=== PATIENT | female | born 1935 | race Caucasian/White ===

== ENCOUNTER 2018-09-17 09:06 | Inpatient (IN) | payer MEDICARE, BC ==
[2018-09-17] MEDS ORDERED: Diltiazem 125 MG/25 ML ONE (09:37)
[2018-09-17 09:53] LABS: #Basophils 0.1 thou/uL (0.0-0.2); #Lymphocytes 1.6 thou/uL (1.20-3.40); #Monocytes 0.4 thou/uL (0.11-0.59); #Neutrophils 4.7 thou/uL (1.40-6.50); %Basophils 0.8 % (0.0-1.0); %Eosinophils 0.6 % (0.0-10.0); %Lymphocytes 23.6 % (21.0-51.0); %Monocytes 6.5 % (0.0-10.0); %Neutrophils 68.6 % (42.0-75.0); Mean Corpuscular HGB CONC 31.4 g/dL (32.0-36.0); Mean Corpuscular Hemoglobin 33.8 pg (27.0-31.0); Mean Platelet Volume 8.3 fL (7.4-10.4); Platelet Count 269 thou/uL (130-400); RBC Distribution Width 13.6 % (11.5-14.5); Red Blood Cell (RBC) Count 4.73 mill/uL (4.20-5.40); White Blood Cell (WBC) Count 6.8 thou/uL (4.8-10.8)
[2018-09-17 10:22] LABS: MDiff Complete? YES; Macrocytosis SLIGHT = 6-15 cells (100X) (0-5/hpf)
[2018-09-17 10:23] LABS: CKMB 1.8 ng/mL (0-6.6); Troponin I Less than 0.010 ng/mL (< 0.028)
--- NOTE | 2018-09-17 11:26 | RAD ---
FRONTAL VIEW CHEST: Date: 09/17/18 INDICATION: Chest pain and edema. FINDINGS: There is enlargement of the cardiac silhouette. Moderate right-sided effusion. There is patchy right basilar density. Vascular calcification and granulomatous calcification present. There are osseous de generative changes. IMPRESSION: Moderate right pleural effusion with adjacent right basilar opacity. There is prominence of the right perihilar region. An underlying mass cannot be excluded. Recommend continued follow-up to resolution . POS: TIFFANI
[2018-09-17 12:02] LABS: Albumin 4.1 g/dL (3.4-4.8)
[2018-09-17 12:03] LABS: Chloride 106 mmol/L (98-107); Potassium 3.5 mmol/L (3.5-5.1); Sodium 141 mmol/L (136-145)
[2018-09-17 12:04] LABS: Calcium 9.3 mg/dL (7.8-10.44); Glucose 114 mg/dL (83-110)
[2018-09-17 12:05] LABS: Globulin 3.6 g/dL (2.4-3.5); Protein, Total 7.7 g/dL (6.0-8.3)
[2018-09-17 12:06] LABS: Anion Gap 19 mmol/L (10-20); Bilirubin, Total 1.3 mg/dL (0.2-1.2); Carbon Dioxide 20 mmol/L (23-31)
[2018-09-17 12:07] LABS: Alkaline Phosphatase 76 U/L (40-150)
[2018-09-17 12:08] LABS: Calc. Creatinine Clearance 0 mL/min (70-130); Estimated GFR-MDRD 83
[2018-09-17 12:09] LABS: AST (SGOT) 21 U/L (5-34); BUN (Urea Nitrogen) 15 mg/dL (9.8-20.1)
[2018-09-17 12:10] LABS: ALT (SGPT) 11 U/L (8-55)
[2018-09-17 12:28] LABS: CK (CPK) 39 U/L (29-168)
--- NOTE | 2018-09-17 13:30 | PDOC.FPRHP ---
- History of Present Illness Chief Complaint: bilateral leg swelling History of Present Illness: Patient comes in for leg swelling going on for about 2 week. States she has felt "puny" for the last 3-4 days or so. Denies palpitations, chest pain. She has had mild shortness of breath as of late, denies cough. She denies recent weight loss or weight gain. She states she has had no recent change in exercise tolerance. Denies history of abnormal heart rhythm, denies any history of heart disease. ED Course: Diltiazem drip - Allergies/Adverse Reactions Allergies Allergy/AdvReac Type Severity Reaction Status Date / Time No Known Allergies Allergy Verified 09/17/18 16:29 - Home Medications Medication Instructions Recorded Confirmed Type Amlodipine [Norvasc] 10 mg PO DAILY 09/17/18 09/17/18 History - History PMHx: HTN , bleeding ulcer (voltaren) PSHx: laminectomy, hysterectomy, bladder sling, cataract x2 FHx: non-contributory Social: 1/2 ppd smoking, no alcohol or drugs - Review of Systems General: reports: fatigue, other (legs feel heavy). denies: fever/chills Eyes: denies: eye pain, vision changes ENT: reports: other (allergies). denies: nasal congestion Respiratory: reports: shortness of breath Cardiovascular: denies: chest pain, palpitation Gastrointestinal: denies: nausea, vomiting, diarrhea, abdominal pain Genitourinary: reports: other (decreased urination). denies: dysuria, polyuria Skin: denies: rashes Musculoskeletal: reports: other (states she has fears of falling but no pain) Neurological: denies: numbness, syncope, weakness - Vital signs BP: 117/91 HR: 120 RR: 18 Tmax: 98.3 Pox: 92% on RA Wt: 52.62 - Physical Exam Constitutional: NAD, awake, alert and oriented, well developed HEENT: normocephalic and atraumatic, conjunctiva clear, grossly normal vision, grossly normal hearing, MMM Neck: supple, trachea midline Chest: no-tender to palpation, no lesions Heart: no murmurs/rubs/gallops, pulses present, other (irregularly irregular rhythm) Lungs: no wheezing, no retractions, other (poor air movement, crackles in bases b/l) Abdomen: soft, non-tender, no masses/distention Musculoskeletal: normal structure, ROM grossly normal Skin: no rash/lesions Psychiatric: normal mood and affect FMR H&P: Results - Labs Result Diagrams: 09/17/18 09:39 09/17/18 09:39 Lab results: WBC 6.8 thou/uL (4.8-10.8) 09/17/18 09:39 Hgb 16.0 g/dL (12.0-16.0) 09/17/18 09:39 Hct 50.9 % (36.0-47.0) H 09/17/18 09:39 MCV 108.0 fL (78.0-98.0) H 09/17/18 09:39 Plt Count 269 thou/uL (130-400) 09/17/18 09:39 Neutrophils % 68.6 % (42.0-75.0) 09/17/18 09:39 Sodium 141 mmol/L (136-145) 09/17/18 09:39 Potassium 3.5 mmol/L (3.5-5.1) 09/17/18 09:39 Chloride 106 mmol/L (98-107) 09/17/18 09:39 Carbon Dioxide 20 mmol/L (23-31) L 09/17/18 09:39 BUN 15 mg/dL (9.8-20.1) 09/17/18 09:39 Creatinine 0.68 mg/dL (0.6-1.1) 09/17/18 09:39 Glucose 114 mg/dL (83-110) H 09/17/18 09:39 Calcium 9.3 mg/dL (7.8-10.44) 09/17/18 09:39 Total Bilirubin 1.3 mg/dL (0.2-1.2) H 09/17/18 09:39 AST 21 U/L (5-34) 09/17/18 09:39 ALT 11 U/L (8-55) 09/17/18 09:39 Alkaline Phosphatase 76 U/L (40-150) 09/17/18 09:39 Creatine Kinase 39 U/L (29-168) 09/17/18 09:39 CK-MB (CK-2) 1.8 ng/mL (0-6.6) 09/17/18 09:39 B-Natriuretic Peptide 586.8 pg/mL (0-100) H 09/17/18 09:39 Serum Total Protein 7.7 g/dL (6.0-8.3) 09/17/18 09:39 Albumin 4.1 g/dL (3.4-4.8) 09/17/18 09:39 - EKG Interpretation EKG: irregularly irregular rhythm, absent P waves, low voltage FMR H&P: A/P - Problem List (1) Atrial fibrillation with rapid ventricular response Current Visit: Yes Status: Acute Code(s): I48.91 - UNSPECIFIED ATRIAL FIBRILLATION (2) Acute on chronic respiratory failure with hypoxia Current Visit: Yes Status: Acute Code(s): J96.21 - ACUTE AND CHRONIC RESPIRATORY FAILURE WITH HYPOXIA (3) Lung abnormality Current Visit: Yes Status: Acute Code(s): J98.4 - OTHER DISORDERS OF LUNG (4) HTN (hypertension) Current Visit: Yes Status: Acute Code(s): I10 - ESSENTIAL (PRIMARY) HYPERTENSION (5) Osteoarthritis Current Visit: Yes Status: Acute Code(s): M19.90 - UNSPECIFIED OSTEOARTHRITIS, UNSPECIFIED SITE - Plan Afib with RVR - Transfer to IMCU titrate diltiazem drip to HR less than or equal to 90 - [id number] 4, Therapuetic dosing of lovenox for anticoagulation - MG, TSH, Echocardiogram to evaluate for cause - possibly 2/2 un-diagnosed COPD - consult cardiology Acute on chronic hypoxic respiratory failure - possibly 2/2 CHF vs COPD exacerbations - O2 supplementation to keep saturations at 88% - monitor closely on IMCU, consult palliative for goals of care - IV lasix BID - wound care consult for LE weeping and edema Lung abnormality on CXR - cannot exclude malignancy, especially considering smoking history - converse with patient about further work up - palliative care consult HTN - continue home medications Osteoarthritis - tylenol for pain Code: DNR ppx: therapeutic lovenox Disposition/LOS: Admit to IMCU for diltiazem drip titration and close monitoring, evaluate for cause FMR H&P: Upper Level - Pertinent history This is an 83 yo F who comes in with chief complaint of leg swelling. She states she has been feeling "puny" for the last 3-4 days. States she hit her leg while getting out of a car 2 weeks ago and since this time her legs have been swollen. She denies cp or palpitations. but states that she has had decreased exercise tolerance with some sob during the last few days. Has had mild cough, non-productive. No fevers, chills, or sweats. She denies every being told she had irregular heart rhythm or heart disease. She has smoked 1 ppd for the last 60 years. Was told she had emphysema at one point but states she has never taken any medications for it. She states she has had a full life, stating she has 10 grandchildren. She was on a statin in the past but quit taking it because she "doesn't want to mess with that." She is DNR/DNI. - Pertinent findings General: NAD, alert and oriented x3, frail appearing HEENT: PERRLA, EOMI, normal sclera, oropharynx without erythema or exudate Neck: Supple. Full ROM. Heart/Cardiovascular System: No r/m/g. irregularly irregular rhythm, Cap refill < 3 seconds, good pulses in all extremities Lungs/Respiratory System: diminished breath sounds at R lung base, decreased air movement, no wheezes Abdomen/Gastro-Intestinal System: non-tender, normal bowel sounds, no masses, no organomegaly Extremeties: Warm extremities. +2 edema bilaterally Neuro: No gross deficits appreciated. CN 2-12 grossly intact Psychiatry: Awake, Alert and cooperative with exam Skin/ Integumentory: abrasion on LLe Musculoskeletal: Full ROM, Strength 5/5 in all 4 extremities - Plan Date/Time: 09/17/18 1330 I, Jorge Luis Mirza MD have evaluated this patient and agree with findings/plan as outlined by photography intern resident. Pertinent changes/additions are listed here. # Atrial fibrillation w/ RVR - HR in 110 in EDs - Diltiazem drip, titrate to HR of 90 - CHADS2-VASC: 4 -> therapuetic lovenox - consult cardiology, apparent new onset-atrial fibrillation - TSH, mag, echo # Acute on chronic Resp Failure 2/2 COPD - sats in the 80s on RA - supplemental oxygen to 88% - spiriva # Possible New-onset CHF - On diltiazem drip - echo pending - Lasix 20mg IV BID # Possible lung mass - consider f/u after diuresis - will discuss whether patient would want to pursue this or no # Abrasion LLE - wound care consult # HTN - hold home meds for now # HLD - refuses statin # Goals of care - patients does not want heroic measures - DNR/DNI - Palliative care consult Code: DNR/DNI Fluids: TKO Diet: NPO at midnight Dispo: 2-3 days Attending Addendum - Attending Addendum Date/Time: 09/17/182038 I personally evaluated the patient and discussed the management with Dr. Hensley. I agree with and repeated the History, Examination, Assessment and Plan documented above with any addition or exceptions noted below. I also verified code status.
[2018-09-17 14:26] LABS: Troponin I Less than 0.010 ng/mL (< 0.028)
[2018-09-17] MEDS ORDERED: Morphine 4 MG/ML VIAL SLOW IVP PRN (15:34)
[2018-09-17] MEDS ORDERED: HYDROcodone/Acetaminophen 7.5/325 mg Tablet PO PRN ×2 (15:34)
[2018-09-17] MEDS ORDERED: Ondansetron HCl/PF 4 MG/2 ML Vial SLOW IVP PRN (15:35)
[2018-09-17] MEDS ORDERED: Diltiazem 125 MG in Sodium Chloride 0.9% 100 ML IVPB SCH (16:00)
[2018-09-17] MEDS ORDERED: Furosemide 20 MG/2 ML VIAL SLOW IVP SCH (16:30)
[2018-09-17] MEDS ORDERED: Clindamycin/D5W 900 MG in Premix Bag 1 BAG IVPB SCH (17:00)
[2018-09-17 17:07] LABS: Troponin I Less than 0.010 ng/mL (< 0.028)
[2018-09-17] MEDS ORDERED: Ibuprofen 800 MG TAB PO SCH (18:00)
[2018-09-17] MEDS: Ipratropium Bromide 2.5 ml Neb NEB SCH ×2 (19:02→23:26)
[2018-09-17] MEDS ORDERED: Potassium Chloride 20 MEQ TAB PO SCH (20:00)
[2018-09-17] MEDS ORDERED: Magnesium 2 GM/50 ML 2 GM in Premix Bag 1 BAG IVPB SCH (20:00)
[2018-09-17] MEDS ORDERED: Enoxaparin Sodium 60 MG/0.6 ML SYRINGE SC SCH (21:00)
[2018-09-17] MEDS ORDERED: Melatonin 3 MG TAB PO SCH (22:15)
--- NOTE | 2018-09-17 23:53 | CON ---
DATE OF CONSULTATION: 09/17/2018 CARDIOLOGY CONSULTATION REASON FOR CONSULTATION: Atrial fibrillation with a rapid rate. Ms. Lackey is an 83-year-old woman with long history of smoking. She came to the hospital and was ad mitted for severe swelling of her lower extremities and shortness of breath, found to be in atrial fi brillation with a rapid rate. PAST MEDICAL HISTORY: She has a history of hypertension and bleeding ulcer due to Voltaren. PAST SURGICAL HISTORY: Laminectomy, hysterectomy, bladder sling, and cataracts. FAMILY HISTORY: Noncontributory. SOCIAL HISTORY: She said she smokes one pack of cigarettes per day. Her family says she smokes 2 pa cks of cigarettes per day, has been smoking since age 14. She has only stopped one time for a few mo nths. REVIEW OF SYSTEMS: CONSTITUTIONAL: Some fatigue, no fever or chills. VISION: No changes. HEARING : No changes. PULMONARY: Positive for shortness of breath. CARDIAC: Positive for shortness of br eath. GASTROINTESTINAL: No nausea, vomiting, diarrhea. SKIN: No rashes. NEUROLOGIC: No unilater al weakness or numbness. PSYCHIATRIC: No unusual depression or anxiety. PHYSICAL EXAMINATION: GENERAL: This is a pleasant, somewhat underweight appearing elderly woman in no distress. She has d eep creases and skin on her face compatible with a long history of smoking. VITAL SIGNS: Blood pressure 170/91, pulse initially was 120s, now it is in the 80s and on Cardizem. EYES: Sclerae nonicteric. MOUTH: Mucous membranes moist. NECK: Supple, no lymphadenopathy. LUNGS: Diffuse rhonchi. CARDIAC: Irregularly irregular. No murmur, rub or gallop. ABDOMEN: Soft, nontender. EXTREMITIES: No clubbing or cyanosis. There is moderate to severe edema. SKIN: Warm and dry. PERTINENT LABORATORY DATA: Potassium 3.5, creatinine is 0.68. ASSESSMENT: 1. Atrial fibrillation with a rapid ventricular response. 2. Severe peripheral edema probably diastolic heart failure from atrial fibrillation. 3. Long history of smoking, almost certainly has chronic obstructive pulmonary disease. PLAN: 1. Agree with intravenous diltiazem for rate control. Change to oral diltiazem tomorrow. 2. Diurese. 3. Likely we will not try to restore sinus rhythm, especially if her left atrium is enlarged. Would avoid amiodarone, it was almost certainly has severe lung disease, most likely rate control anticoag ulation probably with Eliquis 2.5 mg twice a day. Her dry weight is probably well under 60 kilograms .
--- NOTE | 2018-09-17 23:53 | CON ---
DATE OF CONSULTATION: 09/17/2018 SERVICE: Pulmonary Medicine. REASON FOR CONSULTATION: [facility] patient. HISTORY OF PRESENT ILLNESS: Patient is an 83-year-old white female who is new to our system. She was in her usual state of health until about 2 weeks prior to admission. She started having increasing lower extremity swelling. She also had some malaise and fatigue. She had minimal shortness of breath. On presentation to the Emergency Department, she was discovered to be in atrial fibrillation with a rapid rate. She currently denies any fevers or chills. She is not having any cough or sputum production. She is not having any hot, red, swollen joints, rashes, dysuria, diarrhea, nausea or vomiting. She is otherwise in her usual state of health. PAST MEDICAL HISTORY: 1. Hypertension. 2. Atrial fibrillation, new diagnosis. 3. Peptic ulcer disease. PAST SURGICAL HISTORY: 1. Hysterectomy. 2. Bladder sling. 3. Cataracts x2. 4. Laminectomy. FAMILY HISTORY: Noncontributory. SOCIAL HISTORY: She smokes a half pack on a daily basis and has greater than a [id number]-[id number] history of smoking. Denies any alcohol or illicit drug use. She has no exposure to chemicals, dust asbestos or tuberculosis. ALLERGIES: No known drug allergies. MEDICATIONS: List of her inpatient medications were reviewed. No specific updates were made. REVIEW OF SYSTEMS: General, head, ears, eyes, nose, throat, cardiovascular, respiratory, GI, , musculoskeletal, neurologic and skin is negative except as mentioned in the H&P. PHYSICAL EXAMINATION: VITAL SIGNS: Afebrile, pulse 115, blood pressure 122/97, respirations 20, saturation 93% on 2 liters nasal cannula. GENERAL: The patient is awake, alert, no apparent distress. LUNGS: Excellent air entry. Minimal dependent crackles are present. There is no prolonged expiratory phase or wheezing appreciated. HEART: Tachycardic. Regular. ABDOMEN: Soft, nontender, nondistended. Bowel sounds are positive. MUSCULOSKELETAL: No cyanosis or clubbing. There is 1+ to 2+ pitting in the bilateral lower extremities. NEUROLOGIC: Grossly nonfocal. LABORATORY DATA: CBC is completely unremarkable. BNP 586. Comprehensive metabolic profile, cardiac enzymes x2, magnesium and TSH all unremarkable. Her potassium and magnesium are at the lower limits of normal. IMAGING DATA: Chest x-ray demonstrates generous cardiac silhouette. Right pleural effusion is noted. There is prominence to the right perihilar region. ASSESSMENT: 1. Pleural effusion. 2. Atrial fibrillation with rapid ventricular response, new onset. DISCUSSION AND PLAN: The patient is a little volume overloaded. We need to diurese her until she returns to euvolemia. At that point, we can repeat a chest x-ray to see whether or not the effusion has improved. If it has not, thoracentesis will be considered at some point in the future. Potassium and magnesium will be replaced today. This will be preemptive strike as they are likely to dip lower with diuretics. 70 minutes have been devoted to this patient in various activities. I personally reviewed all imaging studies and laboratory data noted within this document. For fifty percent of this time, I was interacting with the patient at the bedside or coordinating care with the care team. For the remainder of the time I was immediately available to the patient in the hospital unit. LALO
[2018-09-18 03:49] LABS: #Basophils 0.1 thou/uL (0.0-0.2); #Eosinphils 0.1 thou/uL (0.0-0.7); #Lymphocytes 1.2 thou/uL (1.20-3.40); #Monocytes 0.6 thou/uL (0.11-0.59); #Neutrophils 4.3 thou/uL (1.40-6.50); %Basophils 1.4 % (0.0-1.0); %Eosinophils 1.2 % (0.0-10.0); %Lymphocytes 19.2 % (21.0-51.0); %Monocytes 8.9 % (0.0-10.0); %Neutrophils 69.3 % (42.0-75.0); Hemoglobin 13.7 g/dL (12.0-16.0); Mean Corpuscular HGB CONC 32.2 g/dL (32.0-36.0); Mean Corpuscular Hemoglobin 34.8 pg (27.0-31.0); Mean Platelet Volume 7.9 fL (7.4-10.4); Platelet Count 205 thou/uL (130-400); RBC Distribution Width 13.2 % (11.5-14.5); Red Blood Cell (RBC) Count 3.93 mill/uL (4.20-5.40); White Blood Cell (WBC) Count 6.3 thou/uL (4.8-10.8)
[2018-09-18 04:10] LABS: ALT (SGPT) 7 U/L (8-55); AST (SGOT) 14 U/L (5-34); Albumin 3.4 g/dL (3.4-4.8); Alkaline Phosphatase 61 U/L (40-150); Anion Gap 10 mmol/L (10-20); BUN (Urea Nitrogen) 15 mg/dL (9.8-20.1); Calc. Creatinine Clearance 67 mL/min (70-130); Calcium 8.6 mg/dL (7.8-10.44); Carbon Dioxide 28 mmol/L (23-31); Chloride 107 mmol/L (98-107); Estimated GFR-MDRD Greater than 90; Globulin 2.8 g/dL (2.4-3.5); Glucose 90 mg/dL (83-110); Potassium 3.4 mmol/L (3.5-5.1); Protein, Total 6.2 g/dL (6.0-8.3); Sodium 142 mmol/L (136-145)
[2018-09-18] MEDS: Furosemide 40 MG/4 ML VIAL SLOW IVP SCH ×2 (05:36→14:44)
[2018-09-18] MEDS ORDERED: Furosemide 20 MG/2 ML VIAL SLOW IVP SCH (06:00)
[2018-09-18] MEDS: Ipratropium Bromide 2.5 ml Neb NEB SCH ×3 (06:31→20:00)
--- NOTE | 2018-09-18 08:20 | PDOC.FM ---
- Subjective Subjective: Patient states she is feeling well this AM. She states she as able to ambulate to the comode without difficulty as long as "no one is bothering her." Discussed possibility of lung mass and she states "well I've been smoking 60 years, what did you expect?" She states she is not at all interested in extensive workup nor quitting smoking. States she has had a full life and 10 grandchildren. Patient denies CP, SOB, N/V/D. States leg swelling is improved. Eating breakfast without difficulty. - Objective Vital Signs & Weight: Vital Signs (12 hours) Temp Pulse Resp BP Pulse Ox 09/18/18 08:08 98.3 F 113 H 32 H 112/69 93 L 09/18/18 06:34 93 L 09/18/18 06:31 86 16 93 L 09/18/18 03:56 97.9 F 98 18 110/72 90 L 09/18/18 00:00 98.2 F 101 H 18 112/75 91 L 09/17/18 23:26 86 16 92 L Weight Weight 59.421 kg I&O: 09/17/18 09/18/18 09/19/18 06:59 06:59 06:59 Intake Total 470 Balance 470 Result Diagrams: 09/18/18 03:14 09/18/18 03:14 <Jorge Luis Mirza - Last Filed: 09/18/18 08:18> - Objective Vital Signs & Weight: Vital Signs (12 hours) Temp Pulse Resp BP Pulse Ox 09/18/18 09:27 113 H 09/18/18 08:23 94 L 09/18/18 08:08 98.3 F 113 H 32 H 112/69 93 L 09/18/18 06:34 93 L 09/18/18 06:31 86 16 93 L 09/18/18 03:56 97.9 F 98 18 110/72 90 L 09/18/18 00:00 98.2 F 101 H 18 112/75 91 L 09/17/18 23:26 86 16 92 L Weight Weight 59.421 kg I&O: 09/17/18 09/18/18 09/19/18 06:59 06:59 06:59 Intake Total 470 Balance 470 Result Diagrams: 09/18/18 03:14 09/18/18 03:14 <Dustin Pedraza - Last Filed: 09/18/18 11:29> Phys Exam - Physical Examination Constitutional: NAD HEENT: PERRLA, moist MMs Respiratory: no wheezing, no rales diminished breath sounds at right base, good air movt Cardiovascular: no significant murmur irregularly irregular rhythm Gastrointestinal: soft, non-tender, no distention, positive bowel sounds +1 pitting edema Neurological: non-focal, moves all 4 limbs Psychiatric: normal affect, A&O x 3 Skin: no rash, cap refill <2 seconds <Jorge Luis Mirza - Last Filed: 09/18/18 08:18> Dx/Plan (1) Atrial fibrillation with rapid ventricular response Code(s): I48.91 - UNSPECIFIED ATRIAL FIBRILLATION Status: Acute (2) Acute on chronic respiratory failure with hypoxia Code(s): J96.21 - ACUTE AND CHRONIC RESPIRATORY FAILURE WITH HYPOXIA Status: Acute (3) Lung abnormality Code(s): J98.4 - OTHER DISORDERS OF LUNG Status: Acute (4) HTN (hypertension) Code(s): I10 - ESSENTIAL (PRIMARY) HYPERTENSION Status: Acute (5) Osteoarthritis Code(s): M19.90 - UNSPECIFIED OSTEOARTHRITIS, UNSPECIFIED SITE Status: Acute - Plan Plan: # Atrial fibrillation w/ RVR - rate controlled overnight at drip of 10mg/hr - switch to oral diltiazem CD 240mg, transfer to [facility] - [facility]: 4 - t. lovenox overnight, convert to eliquis this AM - consult cardiology,appreciate recs - echo pending # Acute on chronic Resp Failure 2/2 COPD - sats in the low 90s on 2L this AM - supplemental oxygen to 88% - spiriva # Possible New-onset CHF - echo pending - Lasix 40mg IV BID # Possible lung mass - f/u 2V CXR at 3pm this afternoon after some time to diurese - patient not interested in extensive workup - palliative care team consulted # Abrasion LLE - wound care consult # HTN - hold home meds for now # HLD - refuses statin # Goals of care - patients does not want heroic measures - DNR/DNI - Palliative care consult Code: DNR/DNI Fluids: TKO Diet: NPO at midnight Dispo: 1-2 days <Jorge Luis Mirza - Last Filed: 09/18/18 08:18> Attending Addendum - Attending Addendum Date/Time: 09/18/18 1123 I personally evaluated the patient and discussed the management with Dr. Mirza I agree with the History, Examination, Assessment and Plan documented above with any addition or exceptions noted below. Atrial fibrillation with RVR heart Rate controlled with IV diltiazen convert to PO diltiazem. Note questionable lung mass and significant PMHX of smoking patient declining further evaluation will attempt to better qualify mass to better advise patient of options respecting her demonstrated wishes for no further care. Appreciate recommendation of Cardiology. <Dustin Pedraza - Last Filed: 09/18/18 11:29>
[2018-09-18] MEDS ORDERED: Docusate Sodium 100 MG/10 ML UDCUP PO SCH (09:00)
[2018-09-18] MEDS ORDERED: Potassium Chloride 20 MEQ TAB PO SCH (09:30)
[2018-09-18] MEDS: Apixaban 2.5 MG TAB PO SCH ×2 (09:56→21:51)
--- NOTE | 2018-09-18 10:31 | RAD ---
CHEST TWO VIEWS: HISTORY: Pleural effusion. Lung mass. Dyspnea. COMPARISON: 09/17/2018 FINDINGS: The cardiac silhouette is magnified and partially obscured by persistent parenchymal and pleural opac ity at the right base. Similar in appearance to the prior study. Mediastinum is midline with aortic calcification and calcified mediastinal lymph nodes. Blunting of the left lateral costophrenic angl e is now evident. No evidence of pneumothorax. Significant compression of a lower thoracic vertebral body on the lateral view. IMPRESSION: 1. Right pleural fluid and lung base parenchymal opacity are similar in appearance to the prior exam ination. Close continued radiographic followup after medical treatment or CT chest is suggested. 2. Small amount of left pleural fluid now evident. 3. Atherosclerosis. 4. Compression deformity, anterior wedging, of a lower thoracic vertebral body, age indeterminate. POS: TIFFANI
--- NOTE | 2018-09-18 15:27 | PRG ---
DATE OF SERVICE: 09/18/2018 SERVICE: Pulmonary Medicine. INTERVAL HISTORY: The patient is doing outstanding from a respiratory standpoint. He denies any cur rent chest pain, shortness of breath, fever or chills. Her breathing is actually much improved james red to yesterday. She is very happy that she got those diuretics. She is actually interested in get ting out of here today. That being said, I reminded that her heart rate is still in a funny rhythm, and she is not under perfect rate control at this time. Otherwise, there has been no interval change to her condition. OBJECTIVE: VITAL SIGNS: Afebrile, pulse 101, blood pressure 112/69, respirations 18, saturation 89% on room air . GENERAL: The patient is awake, alert, no apparent distress. LUNGS: Decent air entry. Minimal dependent crackles are present. HEART: Tachycardic. Irregular. ABDOMEN: Soft, nontender, nondistended. Bowel sounds are positive. MUSCULOSKELETAL: No cyanosis or clubbing. There is no pitting in the bilateral lower extremities. NEUROLOGIC: Grossly nonfocal. LABORATORY DATA: Her CBC is grossly unremarkable. Basic metabolic profile and liver function studie s are normal. TSH falls within normal limits. Magnesium 1.6, potassium 3.4. IMAGING: Chest x-ray demonstrates right pleural effusion. There is now small left-sided pleural eff usion also present. Echocardiogram demonstrates 50%-55% ejection fraction. Underlying atrial fibril lation prevents evaluation for diastolic dysfunction. That being said, the IVC is dilated with poor inspiratory collapse consistent with right-sided volume overload. PA pressures are enlarged. ASSESSMENT: 1. Acute hypoxic respiratory failure, improving. 2. Pleural effusion, bilateral. 3. Atrial fibrillation with rapid ventricular response, new onset. 4. Acute on chronic diastolic heart failure. DISCUSSION AND PLAN: We will continue to diurese the patient until she returns euvolemia. Magnesium and potassium will be replaced today. Pulmonary Critical Care will continue to follow intermittentl y through the hospital stay. Ultimately, she will need a 2-view chest x-ray on Friday or Friday prio r to discharge. If the effusion persists, this study will need to be repeated in a couple weeks in t outpatient setting. If it persists, Pulmonary consultation should be considered.
[2018-09-18 16:38] VITALS: BMI 24.7
[2018-09-18] MEDS ORDERED: hydrALAZINE 10 MG TAB PO SCH (22:15)
[2018-09-18] MEDS ORDERED: hydrOXYzine 10 MG TAB PO SCH (22:30)
[2018-09-18] MEDS: Melatonin 3 MG TAB PO PRN (22:35)
[2018-09-18] MEDS: Acetaminophen 325 MG TAB PO PRN (22:35)
[2018-09-19] MEDS: Ipratropium Bromide 2.5 ml Neb NEB SCH ×4 (00:47→19:30)
[2018-09-19 05:37] LABS: Anion Gap 10 mmol/L (10-20); BUN (Urea Nitrogen) 15 mg/dL (9.8-20.1); Calc. Creatinine Clearance 62 mL/min (70-130); Calcium 8.6 mg/dL (7.8-10.44); Carbon Dioxide 29 mmol/L (23-31); Chloride 104 mmol/L (98-107); Estimated GFR-MDRD 84; Glucose 113 mg/dL (83-110); Magnesium 1.5 mg/dL (1.6-2.6); Potassium 3.6 mmol/L (3.5-5.1); Sodium 139 mmol/L (136-145)
[2018-09-19] MEDS: Furosemide 40 MG/4 ML VIAL SLOW IVP SCH ×2 (06:04→15:04)
--- NOTE | 2018-09-19 06:47 | PDOC.FM ---
- Subjective Subjective: This morning patient states she is having some pain in her joints from OA. She denies CP, SOB, or weakness. She has had a chronic cough, not productive. Denies feeling palpitations. Multiple runs of a fib w/ RVR overnight on tele to 120s. At bedside her radial pulse was 80bpm. - Objective Vital Signs & Weight: Vital Signs (12 hours) Temp Pulse Resp BP Pulse Ox 09/19/18 03:41 97.7 F 108 H 21 H 112/70 93 L 09/19/18 00:47 90 L 09/18/18 20:03 90 L 09/18/18 20:00 97.5 F L 104 H 20 117/78 90 L Weight Admit Weight 58.876 kg Weight 58.967 kg I&O: 09/17/18 09/18/18 09/19/18 06:59 06:59 06:59 Intake Total 470 740 Balance 470 740 Result Diagrams: 09/18/18 03:14 09/19/18 04:39 <Jorge Luis Mirza - Last Filed: 09/19/18 06:44> - Objective Vital Signs & Weight: Vital Signs (12 hours) Temp Pulse Resp BP BP Pulse Ox 09/19/18 08:53 142 H 132/82 09/19/18 08:00 98.3 F 142 H 20 123/80 93 L 09/19/18 07:28 88 L 09/19/18 07:24 128 H 20 88 L 09/19/18 03:41 97.7 F 108 H 21 H 112/70 93 L 09/19/18 00:47 90 L Weight Admit Weight 58.876 kg Weight 58.967 kg I&O: 09/18/18 09/19/18 09/20/18 06:59 06:59 06:59 Intake Total 470 740 360 Balance 470 740 360 Result Diagrams: 09/18/18 03:14 09/19/18 04:39 <Dustin Pedraza - Last Filed: 09/19/18 12:39> Phys Exam - Physical Examination Constitutional: NAD HEENT: PERRLA, moist MMs Respiratory: no wheezing, no rales mild diminshed breath sounds at R base Cardiovascular: RRR, no significant murmur Gastrointestinal: soft, non-tender, no distention, positive bowel sounds Musculoskeletal: no edema, pulses present Neurological: non-focal, moves all 4 limbs Psychiatric: normal affect, A&O x 3 Skin: no rash, cap refill <2 seconds <Jorge Luis Mirza - Last Filed: 09/19/18 06:44> Dx/Plan (1) Atrial fibrillation with rapid ventricular response Code(s): I48.91 - UNSPECIFIED ATRIAL FIBRILLATION Status: Acute (2) Acute on chronic respiratory failure with hypoxia Code(s): J96.21 - ACUTE AND CHRONIC RESPIRATORY FAILURE WITH HYPOXIA Status: Acute (3) Lung abnormality Code(s): J98.4 - OTHER DISORDERS OF LUNG Status: Acute (4) HTN (hypertension) Code(s): I10 - ESSENTIAL (PRIMARY) HYPERTENSION Status: Acute (5) Osteoarthritis Code(s): M19.90 - UNSPECIFIED OSTEOARTHRITIS, UNSPECIFIED SITE Status: Acute - Plan Plan: # Atrial fibrillation w/ RVR - increased diltiazem to 300mg daily, multiple runs of a fib w/ rvr on tele - radial pulse 80 - CHADS2-VASC: 4 - eliquis - consult cardiology,appreciate recs - echo read pending # Acute on chronic Resp Failure 2/2 COPD - sats in the low 90s on 2L this AM - supplemental oxygen to 88% - spiriva - suspect will need home o2 # Possible New-onset CHF - echo pending - Lasix 40mg IV BID # Possible lung mass - CXR shows persistent fluid yesterday, repeat tomorrow - patient not interested in extensive workup - palliative care team consulted # Abrasion LLE - wound care consult # HTN - hold home meds for now # HLD - refuses statin # Goals of care - patients does not want heroic measures - DNR/DNI - Palliative care consult Code: DNR/DNI Fluids: TKO Diet: regular Dispo: 1-2 days <Jorge Luis Mirza - Last Filed: 09/19/18 06:44> Attending Addendum - Attending Addendum Date/Time: 09/19/18 [id number] I personally evaluated the patient and discussed the management with Dr. Ruthann Mirza I agree with the History, Examination, Assessment and Plan documented above with any addition or exceptions noted below. Patient improved patient and family acknowledge lung mass and desire to not have any further evaluation with knowledge possible carcinoma.Appreciate rec from Cardiology. <Dustin Pedraza - Last Filed: 09/19/18 12:39>
[2018-09-19] MEDS ORDERED: Diltiazem HCl CD 300 mg Capsule PO SCH ×2 (07:00→09:00)
[2018-09-19] MEDS: Diltiazem HCl 125 MG, Admixture Fee 1 EACH in Sodium Chloride 0.9% 100 ML IVPB SCH ×2 (07:11→21:14)
[2018-09-19] MEDS: Potassium Chloride 20 MEQ TAB PO SCH (08:53)
[2018-09-19] MEDS: Acetaminophen 325 MG TAB PO PRN ×2 (08:56→20:40)
[2018-09-19] MEDS: Apixaban 2.5 MG TAB PO SCH ×2 (10:03→20:30)
[2018-09-19] MEDS ORDERED: Digoxin 0.5 MG/2 ML AMP SLOW IVP SCH (14:00)
--- NOTE | 2018-09-19 14:42 | PDOC.CTH ---
<Carmen Pederson - Last Filed: 09/19/18 14:29> Cardiology Progress Note - Subjective The pt seen and examined. No overnight events. No cardiac complaints. She stated she would like to d/c home [place]. However, she voiced understanding after long conversation about Dx Afib, CHF, and the risk. - Objective Vital Signs Temp Pulse Resp BP BP Pulse Ox 09/19/18 13:52 86 20 09/19/18 08:53 142 H 132/82 09/19/18 08:00 98.3 F 142 H 20 123/80 93 L 09/19/18 07:28 88 L 09/19/18 07:24 128 H 20 88 L 09/19/18 03:41 97.7 F 108 H 21 H 112/70 93 L Admit Weight 129 lb 12.8 oz Weight 130 lb 09/18/18 09/19/18 09/20/18 06:59 06:59 06:59 Intake Total 470 740 360 Balance 470 740 360 - Physical Examination General/Neuro: alert & oriented x3 Neck: no JVD present Lungs: other: (coarses and dminished at bases) Heart: other: (irregular) Abdomen: soft Extremities: other: (2-3+ pitting BLE edema) - Telemetry Telemetry Rhythm: Afib 110-120s - Labs Result Diagrams: 09/18/18 03:14 09/19/18 04:39 Troponin/CKMB CK-MB (CK-2) 1.8 ng/mL (0-6.6) 09/17/18 09:39 Troponin I Less than 0.010 ng/mL (< 0.028) 09/17/18 16:37 - Assessment/Plan 1. Afib with RVR - 2. Acute on Chronic Diastolic HF possible 2/2 afib - SOB and BLE edema have been improving per family; cont. to monitor 3. HTN - stable 4. Possible lung mass - another CXR tomorrow 5. Current smoker - at this moment, she refused to stop smoking. 6. Code: DNR/DNI * Echo on 09/18/18 showed EF 50-55%, afib, mod-severe dilated LA, mod ERA, dilated IVC, mod AI, mod-severe TR, mild-mod MR, PA systolic pressure 50-55 mmHG. Review of Systems - Review of Systems Constitutional: reports: no symptoms reported EENTM: reports: no symptoms reported Respiratory: reports: no symptoms reported Cardiac (ROS): reports: no symptoms reported ABD/GI: reports: no symptoms reported : reports: no symptoms reported Musculoskeletal: reports: no symptoms reported <Johana Navarro Shalom - Last Filed: 09/19/18 23:45> Cardiology Progress Note - Objective Vital Signs Temp Pulse Resp BP Pulse Ox 09/19/18 20:25 88 09/19/18 20:20 92 L 09/19/18 20:11 97.6 F 99 20 124/67 09/19/18 19:31 91 L 09/19/18 19:30 91 L 09/19/18 16:00 97.8 F 127 H 18 114/82 96 09/19/18 15:08 124 H 09/19/18 13:52 86 20 09/19/18 12:00 98.2 F 133 H 18 107/72 94 L Admit Weight 129 lb 12.8 oz Weight 130 lb 09/18/18 09/19/18 09/20/18 06:59 06:59 06:59 Intake Total 470 740 855 Output Total 850 Balance 470 740 5 - Labs Result Diagrams: 09/18/18 03:14 09/19/18 04:39 Troponin/CKMB CK-MB (CK-2) 1.8 ng/mL (0-6.6) 09/17/18 09:39 Troponin I Less than 0.010 ng/mL (< 0.028) 09/17/18 16:37 - Assessment/Plan Pt. seen and evaluated by me. I agree with the A/P by the MINING ANALYST. We have discussed the pt. and the plan.Irreg/irreg.
[2018-09-19] MEDS: Digoxin 0.5 MG/2 ML AMP SLOW IVP SCH (20:25)
[2018-09-19] MEDS: Melatonin 3 MG TAB PO PRN (20:41)
[2018-09-20] MEDS: Ipratropium Bromide 2.5 ml Neb NEB SCH ×5 (00:06→23:52)
[2018-09-20] MEDS: Digoxin 0.5 MG/2 ML AMP SLOW IVP SCH (02:09)
[2018-09-20] MEDS: Furosemide 40 MG/4 ML VIAL SLOW IVP SCH ×2 (05:43→14:18)
--- NOTE | 2018-09-20 06:30 | PDOC.FM ---
- Subjective Subjective: THis morning patient states she slept well overnight. States she ambulated in the room yesterday without difficulty or weakness. She denies CP, SOB, or palpitations. Overnight she had a few episodes of A fib w/ rvr into the 110s, diltiazem was increased to a rate of 7.5 mg/hr and shortly after this she did not have any rates over 100. Digoxin was also added to her regimen yesterday. - Objective Vital Signs & Weight: Vital Signs (12 hours) Temp Pulse Resp BP Pulse Ox 09/20/18 03:30 97.6 F 84 16 112/76 92 L 09/20/18 02:09 91 09/20/18 00:06 91 L 09/19/18 23:51 97.6 F 65 20 114/66 92 L 09/19/18 20:25 88 09/19/18 20:20 92 L 09/19/18 20:11 97.6 F 99 20 124/67 09/19/18 19:31 91 L 09/19/18 19:30 91 L Weight Admit Weight 58.876 kg Weight 56.812 kg I&O: 09/18/18 09/19/18 09/20/18 06:59 06:59 06:59 Intake Total 470 740 855 Output Total 1150 Balance 470 740 -295 Result Diagrams: 09/18/18 03:14 09/19/18 04:39 <Jorge Luis Mirza - Last Filed: 09/20/18 06:34> - Objective Vital Signs & Weight: Vital Signs (12 hours) Temp Pulse Resp BP Pulse Ox 09/20/18 10:18 97 09/20/18 08:10 98.2 F 97 22 H 134/74 93 L 09/20/18 06:41 90 L 09/20/18 06:37 81 20 88 L 09/20/18 03:30 97.6 F 84 16 112/76 92 L 09/20/18 02:09 91 Weight Admit Weight 58.876 kg Weight 56.812 kg I&O: 09/19/18 09/20/18 09/21/18 06:59 06:59 06:59 Intake Total 740 855 Output Total 1150 Balance 740 -295 Result Diagrams: 09/18/18 03:14 09/19/18 04:39 <Dustin Pedraza - Last Filed: 09/20/18 12:54> Phys Exam - Physical Examination Constitutional: NAD HEENT: PERRLA, moist MMs Respiratory: no wheezing, no rales, clear to auscultation bilateral Cardiovascular: no significant murmur irregularly irregular rhythm Gastrointestinal: soft, non-tender, no distention, positive bowel sounds +2 edema of the legs Neurological: non-focal, moves all 4 limbs Psychiatric: normal affect, A&O x 3 Skin: no rash, cap refill <2 seconds <Jorge Luis Mirza - Last Filed: 09/20/18 06:34> Dx/Plan (1) Atrial fibrillation with rapid ventricular response Code(s): I48.91 - UNSPECIFIED ATRIAL FIBRILLATION Status: Acute (2) Acute on chronic respiratory failure with hypoxia Code(s): J96.21 - ACUTE AND CHRONIC RESPIRATORY FAILURE WITH HYPOXIA Status: Acute (3) Lung abnormality Code(s): J98.4 - OTHER DISORDERS OF LUNG Status: Acute (4) HTN (hypertension) Code(s): I10 - ESSENTIAL (PRIMARY) HYPERTENSION Status: Acute (5) Osteoarthritis Code(s): M19.90 - UNSPECIFIED OSTEOARTHRITIS, UNSPECIFIED SITE Status: Acute - Plan Plan: # Atrial fibrillation w/ RVR - Diltiazem increased to 7.5mg/hr, likely transition to oral today - Digoxin added yesterday - CHADS2-VASC: 4 - eliquis - consult cardiology,appreciate recs - Echo shows EF 50-55% # Acute on chronic Resp Failure 2/2 COPD - sats in the low 90s on 2L this AM - supplemental oxygen to 88% - spiriva - suspect will need home o2 # acute on chronic CHF likely 2/2 a fib - Lasix 40mg IV BID - EF 50-55% # Possible lung mass - patient and family not interested in extensive workup - palliative care team consulted # Abrasion LLE - wound care consult # HTN - hold home meds for now # HLD - refuses statin # Goals of care - patients does not want heroic measures - DNR/DNI - Palliative care consult Code: DNR/DNI Fluids: TKO Diet: regular Dispo: 1-2 days, pending rate control on oral medications <Jorge Luis Mirza - Last Filed: 09/20/18 06:34> Attending Addendum - Attending Addendum Date/Time: 09/20/18 7022 I personally evaluated the patient and discussed the management with Dr. Meenu Mirza I agree with the History, Examination, Assessment and Plan documented above with any addition or exceptions noted below. Recurrent Atrial fibrillation with RVR. On Digoxin, IV diltiazem appreciate Cardiology rec. Otherwise supportive care offer Home health consideration provider etc patient declines at present. <Dustin Pedraza - Last Filed: 09/20/18 12:54>
[2018-09-20] MEDS: Apixaban 2.5 MG TAB PO SCH ×2 (10:18→21:09)
[2018-09-20] MEDS: Digoxin 0.125 MG TAB PO SCH (10:18)
[2018-09-20] MEDS: Potassium Chloride 20 MEQ TAB PO SCH (10:19)
--- NOTE | 2018-09-20 14:21 | PDOC.CTH ---
<Carmen Pederson - Last Filed: 09/20/18 14:22> Cardiology Progress Note - Subjective The pt seen and examined. No overnight events. No cardiac complaints. She is still on 3LNC. She has good appetite. - Objective Vital Signs Temp Pulse Resp BP Pulse Ox 09/20/18 10:18 97 09/20/18 08:10 98.2 F 97 22 H 134/74 93 L 09/20/18 06:41 90 L 09/20/18 06:37 81 20 88 L 09/20/18 03:30 97.6 F 84 16 112/76 92 L Admit Weight 129 lb 12.8 oz Weight 125 lb 4 oz 09/19/18 09/20/18 09/21/18 06:59 06:59 06:59 Intake Total 740 855 Output Total 1150 Balance 740 -295 - Physical Examination General/Neuro: alert & oriented x3 Neck: no JVD present Lungs: other: (very diminished at bases) Heart: other: (irregular) Abdomen: soft Extremities: other: (2-3+ pitting BLE edema) - Telemetry Telemetry Rhythm: Afib 80s - Labs Result Diagrams: 09/18/18 03:14 09/19/18 04:39 Troponin/CKMB CK-MB (CK-2) 1.8 ng/mL (0-6.6) 09/17/18 09:39 Troponin I Less than 0.010 ng/mL (< 0.028) 09/17/18 16:37 - Assessment/Plan 1. Afib with RVR - HR well controlled with Diltiazem 7.5mg/hr and Digoxin 0.125mg PO qd. Not on BBlocker due to hx of COPD. On Eliquis for CHADS2-VASC score: 4 (Age, gender, HTN). Increase Eliquis from 2.5mg BID to 5mg BID since her Cr level is WNL. 2. Acute on Chronic Diastolic HF possible 2/2 afib - SOB and BLE edema have been improving per family; cont. to monitor 3. HTN - stable 4. Possible lung mass - At this moment, patient and family are not interested in extensive workup 5. Current smoker - at this moment, she refused to stop smoking. 6. Code: DNR/DNI * Echo on 09/18/18 showed EF 50-55%, afib, mod-severe dilated LA, mod ERA, dilated IVC, mod AI, mod-severe TR, mild-mod MR, PA systolic pressure 50-55 mmHG. Review of Systems - Review of Systems Constitutional: reports: no symptoms reported EENTM: reports: no symptoms reported Respiratory: reports: no symptoms reported Cardiac (ROS): reports: no symptoms reported ABD/GI: reports: no symptoms reported : reports: no symptoms reported Musculoskeletal: reports: no symptoms reported Skin: reports: no symptoms reported <Johana Navarro - Last Filed: 09/20/18 22:18> Cardiology Progress Note - Objective Vital Signs Temp Pulse Pulse Pulse Resp BP BP 09/20/18 19:44 09/20/18 19:37 98.6 F 87 17 09/20/18 19:29 09/20/18 19:28 09/20/18 16:20 98.0 F 89 20 09/20/18 14:57 88 20 09/20/18 13:28 104 H 101 H 111/75 140/81 09/20/18 12:35 97.5 F L 89 18 09/20/18 10:18 97 BP Pulse Ox 09/20/18 19:44 94 L 09/20/18 19:37 120/72 94 L 09/20/18 19:29 91 L 09/20/18 19:28 91 L 09/20/18 16:20 129/70 97 09/20/18 14:57 90 L 09/20/18 13:28 09/20/18 12:35 130/82 97 09/20/18 10:18 Admit Weight 129 lb 12.8 oz Weight 125 lb 4 oz 09/19/18 09/20/18 09/21/18 06:59 06:59 06:59 Intake Total 740 855 Output Total 1150 Balance 740 -295 - Labs Result Diagrams: 09/18/18 03:14 09/19/18 04:39 Troponin/CKMB CK-MB (CK-2) 1.8 ng/mL (0-6.6) 09/17/18 09:39 Troponin I Less than 0.010 ng/mL (< 0.028) 09/17/18 16:37 - Assessment/Plan Pt. seen and evaluated by me. I agree with the A/P by the SHEET ROCK NAILER. We have discussed the pt. and the plan.Chest clear. Irreg/irreg.
[2018-09-20] MEDS: Acetaminophen 325 MG TAB PO PRN (21:09)
[2018-09-20] MEDS: Melatonin 3 MG TAB PO PRN (21:09)
[2018-09-21] MEDS: Furosemide 40 MG/4 ML VIAL SLOW IVP SCH (06:16)
--- NOTE | 2018-09-21 08:28 | PDOC.FM ---
- Subjective Subjective: Patient reports continued SOB, requiring O2 by NC supplementation. She denies any chest pain, palpitations. She reports that the swelling in her LE has improved. She reports that she is tolerating PO well and denies N/V. - Objective MAR Reviewed: Yes Vital Signs & Weight: Vital Signs (12 hours) Temp Pulse Resp BP Pulse Ox 09/21/18 03:45 97.6 F 92 22 H 127/69 91 L 09/20/18 23:52 92 L 09/20/18 23:30 98.7 F 86 20 113/71 91 L Weight Admit Weight 58.876 kg Weight 54.998 kg I&O: 09/20/18 09/21/18 09/22/18 06:59 06:59 06:59 Intake Total 855 300 Output Total 1150 500 Balance -295 -200 Result Diagrams: 09/18/18 03:14 09/19/18 04:39 Phys Exam - Physical Examination Constitutional: NAD HEENT: moist MMs, sclera anicteric decreased breath sounds at bilateral bases, diffuse rales irregularly irregular, tachycardic, no murmur Gastrointestinal: soft, non-tender, no distention, positive bowel sounds Musculoskeletal: pulses present 1+ pitting edema in BLE, R>L Neurological: non-focal, moves all 4 limbs Psychiatric: normal affect, A&O x 3 Deviation from normal: dressing in place over LLE wound Dx/Plan (1) Atrial fibrillation with rapid ventricular response Code(s): I48.91 - UNSPECIFIED ATRIAL FIBRILLATION Status: Acute (2) Acute on chronic respiratory failure with hypoxia Code(s): J96.21 - ACUTE AND CHRONIC RESPIRATORY FAILURE WITH HYPOXIA Status: Acute (3) Lung abnormality Code(s): J98.4 - OTHER DISORDERS OF LUNG Status: Acute (4) HTN (hypertension) Code(s): I10 - ESSENTIAL (PRIMARY) HYPERTENSION Status: Acute (5) Osteoarthritis Code(s): M19.90 - UNSPECIFIED OSTEOARTHRITIS, UNSPECIFIED SITE Status: Acute Qualifiers: Osteoarthritis location: multiple joints Osteoarthritis type: unspecified Qualified Code(s): M15.9 - Polyosteoarthritis, unspecified (6) Tobacco abuse Code(s): Z72.0 - TOBACCO USE Status: Acute - Plan Plan: Atrial fibrillation w/ RVR Tele: a-fib with rate in 80s-100s - Diltiazem at 7.5mg/hr, may transition to oral today pending cards recs - Digoxin - CHADS2-VASC: 4. Continue Eliquis - Cards on board, appreciate recs - Echo shows EF 50-55% Acute on Chronic Resp Failure 2/2 a-fib with RVR and COPD Sats in the low 90s on 3L this AM. Pt fluid overloaded on admission, which likely contributed - supplemental oxygen to 88% - Atrovent - Lasix 40mg IV BID - suspect will need home O2 Acute on Chronic CHF likely 2/2 a fib - Lasix 40mg IV BID - EF 50-55% - Daily weights, strict I/O's Possible lung mass - patient and family not interested in extensive workup - palliative care team consulted JEFF Abrasion - wound care consult HTN - hold home meds for now HLD - refuses statin Tobacco Abuse Pt with extensive smoking history. Denies any desire to quit, but reports she hasn't smoked since so she may quit when she leaves here. - Counseled on cessation Goals of care - patients does not want heroic measures - DNR/DNI - Palliative care consult Code: DNR/DNI Fluids: TKO Diet: regular Dispo: 1-2 days, pending rate control on oral medications
[2018-09-21] MEDS: Potassium Chloride 20 MEQ TAB PO SCH (09:32)
[2018-09-21] MEDS: Digoxin 0.125 MG TAB PO SCH (09:32)
[2018-09-21] MEDS: Apixaban 2.5 MG TAB PO SCH (09:36)
--- NOTE | 2018-09-21 09:49 | RAD ---
CHEST PA AND LATERAL: History: 83-year-old female with history of follow up effusion, status post diuretics. Comparison: 09-18-18 FINDINGS: Monitor leads overlie the chest. Mild bilateral vascular congestion. Moderate right sided pleural eff usion and small left sided pleural effusion. Extensive atherosclerosis of the aorta with ectasia. Old granulomatous disease. Significant bony demineralization. IMPRESSION: Bilateral pleural effusions, larger on the right side. Overall stable vascular congestion and cardiom egaly. Extensive atherosclerosis of the aorta with ectasia. No significant new process. Continued fol low up for clearing. POS: [facility]
[2018-09-21 10:14] LABS: BUN (Urea Nitrogen) 12 mg/dL (9.8-20.1); Calc. Creatinine Clearance 55 mL/min (70-130); Calcium 9.2 mg/dL (7.8-10.44); Estimated GFR-MDRD 80; Glucose 106 mg/dL (83-110); Magnesium 1.1 mg/dL (1.6-2.6); Phosphorus 3.9 mg/dL (2.3-4.7)
[2018-09-21 10:41] LABS: Carbon Dioxide 38 mmol/L (23-31)
[2018-09-21 10:43] LABS: Potassium 4.3 mmol/L (3.5-5.1); Sodium 139 mmol/L (136-145)
[2018-09-21 10:44] LABS: Chloride 88 mmol/L (98-107)
[2018-09-21] MEDS: Ipratropium Bromide 2.5 ml Neb NEB SCH ×3 (10:44→19:55)
[2018-09-21 10:45] LABS: Anion Gap 17 mmol/L (10-20)
[2018-09-21] MEDS ORDERED: Furosemide 40 MG/4 ML VIAL SLOW IVP SCH (10:47)
[2018-09-21] MEDS ORDERED: Digoxin 0.5 MG/2 ML AMP SLOW IVP SCH (11:00)
--- NOTE | 2018-09-21 11:21 | PRG ---
DATE OF SERVICE: 09/21/2018 SUBJECTIVE: Ms. Lackey is feeling okay at rest, but she has not been getting up out of bed much. Sh e has no chest pain or pressure. PHYSICAL EXAMINATION: VITAL SIGNS: Blood pressure 129/88, pulse is about 120-130, it is irregular. LUNGS: Rhonchi. CARDIAC: Irregular, irregular. ABDOMEN: Soft, nontender. EXTREMITIES: No edema. ASSESSMENT: 1. Atrial fibrillation, chronic. Rate is uncontrolled despite intravenous diltiazem. She is back o n intravenous diltiazem now. 2. Severe chronic obstructive pulmonary disease. PLAN: 1. Add a dose of intravenous digoxin. 2. She has also got a metabolic alkalosis. We will hold the furosemide today and give her a dose of Diamox. 3. Do a digoxin level tomorrow. 4. If the heart rate is lower, try to change her from intravenous diltiazem to oral diltiazem. If s he cannot be controlled, consideration would need to be given for pacemaker insertion, hopefully bive ntricular in view of the diastolic heart failure and then AV junction ablation. 5. Reassess the situation after the above strategy.
[2018-09-21] MEDS: Diltiazem HCl 125 MG, Admixture Fee 1 EACH in Sodium Chloride 0.9% 100 ML IVPB SCH (11:28)
[2018-09-21] MEDS: Acetaminophen 325 MG TAB PO PRN (11:31)
[2018-09-21] MEDS ORDERED: Magnesium 2 GM/50 ML 2 GM in Premix Bag 1 BAG IVPB SCH (12:45)
--- NOTE | 2018-09-21 13:45 | DIS-2 ---
TRANSFER OF CARE NOTE DATE OF ADMISSION: 09/17/2018 DATE OF DISCHARGE: To be determined. ADMITTING PHYSICIAN: Rafi Gary MD DISCHARGE PHYSICIAN: To be determined. RESIDENT: Jorge Luis Mirza MD PROCEDURES: Echocardiogram shows EF 50%-55%. Chest x-ray shows right pleural effusion, likely right lung mass. PRIMARY DIAGNOSIS: Atrial fibrillation with rapid ventricular response. SECONDARY DIAGNOSES: 1. Acute on chronic respiratory failure, secondary to chronic obstructive pulmonary disease. 2. Congestive heart failure, secondary to atrial fibrillation. 3. Lung mass. 4. Hypertension. 5. Hyperlipidemia. DISCHARGE MEDICATIONS: To be determined. DISCONTINUED MEDICATIONS: To be determined. HISTORY OF PRESENT HOSPITAL COURSE: This is an 83-year-old female, who presented to the ER with 2 weeks of feeling "puny." She states that she had leg swelling during that time. She denied palpitations or chest pain. She had mild shortness of breath the last few days and denied a cough. She denied recent weight loss or weight gain. She has had no recent change in exercise tolerance. She has never been told she had an abnormal rhythm before coming in. She had a [id number] smoking history and was told she had emphysema at some point, but had never taken any medications or had treatment for it. The patient was found to be in atrial fibrillation with RVR. She was started on diltiazem drip and admitted to the ICU so the diltiazem drip could be titrated. She was rate controlled on a rate of 10 mg an hour. She was transitioned to the telemetry unit on account of 40 mg long-acting diltiazem overload. Ultimately, she converted back to atrial fibrillation with rapid ventricular response and to be started again on the IV diltiazem drip. She was started on digoxin by Cardiology. Anticipate a transition to oral medications sometime today or tomorrow. She was anticoagulated with Eliquis. The patient was shown to have likely right-sided lung mass on chest x-ray. When this was discussed with the patient, she stated "I have smoked for 60 years what the hell that you think that you are going to see." The patient is not at all interested in any further workup for this lung mass. This was discussed with her and family and she states she does not want further workup for this. She states she has lived a full life, has 10 grandkids and 10 great grandkids and is very happy. Repeat chest x-ray is ordered for a.m. on 2017 to further evaluate mass after getting diuresis. Could consider a CT chest , but at this point it seems like the patient is really not interested in that information anyways. DISPOSITION: The patient will need to be rate controlled on oral medications before being sent home. Continue to monitor diuresis. Follow up on chest x- ray on the morning of 09/21/2018, it appears that the patient is not interested in further workup for lung mass. LALO
[2018-09-21] MEDS ORDERED: acetaZOLAMIDE Sodium 500 MG in Sodium Chloride 0.9% 50 ML IVPB SCH (14:00)
[2018-09-21] MEDS ORDERED: traMADol HCl 50 MG TAB PO SCH ×2 (14:30→21:00)
--- NOTE | 2018-09-21 16:38 | PRG ---
DATE OF SERVICE: 09/21/2018 SERVICE: Pulmonary Medicine. INTERVAL HISTORY: The patient is doing great from a respiratory standpoint. She did not have any shortness of breath or chest discomfort. Her lower extremity swelling is improved. Otherwise, there has been no interval change to her condition. PHYSICAL EXAMINATION: VITAL SIGNS: Afebrile. Pulse 84, blood pressure 127/76, respirations 14, saturation 93% on 2 L nasal cannula. GENERAL: Patient is awake and alert, in no apparent distress. LUNGS: There is decreased air entry on the right compared to the left. Crackles are present in bibasilar regions. No prolonged expiratory phase or wheezing is appreciated. HEART: Normal rate and regular. ABDOMEN: Soft, nontender, nondistended. Bowel sounds are positive. MUSCULOSKELETAL: No cyanosis or clubbing. There is no pitting in the bilateral lower extremities. NEUROLOGIC: Grossly nonfocal. LABORATORY DATA: Magnesium 1.1, phosphorus 3.9. Basic metabolic profile is otherwise unremarkable except for bicarbonate that has jumped up to 38. Imaging of the chest x-ray demonstrates persistence in the right-sided pleural effusion. The left pleural effusion is much smaller. Vascular congestion is mild. ASSESSMENT: 1. Acute hypoxic respiratory failure. 2. Pleural effusion, right greater than left. 3. Atrial fibrillation with rapid ventricular response, new onset. 4. Acute on chronic diastolic heart failure. DISCUSSION AND PLAN: We will replace her magnesium. Intravascularly, she is likely a touch dehydrated. She has probably developed a little bit of a contraction alkalosis. As such, we should back off on our conventional diuretics for a day until this clears. She has already gotten a dose of acetazolamide, but I am going to put her Lasix on hold for now. If the bicarbonate drops significantly and the patient does not have signs of a prerenal azotemia into tomorrow, we can get it started back. I will do a thoracentesis on her in the morning. I talked to the patient and her daughter about the risks and benefits of performing a thoracentesis, would like to do one for diagnostic purposes. I gave them the option of following up with me in clinic in 2-3 weeks with a repeat chest x-ray. We could do a thoracentesis in the outpatient setting. The daughter then intervened and said no. If we are going to do it, we might as well do it while she is inhouse because I will never get her back in my clinic again. I talked to the patient about this and she affirmed that if she felt well, she is not going to come back and visit with me. I talked to them about the possibility that this effusion could be real estate representative of cancer, infection, or just be associated with her volume state. They would like to move forward with a thoracentesis in the morning and so we will go ahead and arrange for that. She does not have to be n.p.o. for this procedure. Pulmonary will continue to follow while the patient remains in house. LALO
[2018-09-22] MEDS: Ipratropium Bromide 2.5 ml Neb NEB SCH ×4 (02:44→19:05)
[2018-09-22 05:52] LABS: Anion Gap 11 mmol/L (10-20); BUN (Urea Nitrogen) 12 mg/dL (9.8-20.1); Calc. Creatinine Clearance 57 mL/min (70-130); Carbon Dioxide 30 mmol/L (23-31); Chloride 95 mmol/L (98-107); Estimated GFR-MDRD 84; Glucose 87 mg/dL (83-110); Magnesium 1.7 mg/dL (1.6-2.6); Phosphorus 3.7 mg/dL (2.3-4.7); Potassium 4.2 mmol/L (3.5-5.1); Sodium 132 mmol/L (136-145)
[2018-09-22] MEDS ORDERED: Furosemide 40 MG/4 ML VIAL SLOW IVP SCH ×2 (06:00→09:00)
[2018-09-22] MEDS: Diltiazem HCl 125 MG, Admixture Fee 1 EACH in Sodium Chloride 0.9% 100 ML IVPB SCH (06:14)
[2018-09-22 07:35] LABS: Digoxin 1.97 ng/mL (0.8-2.0)
[2018-09-22] MEDS: Potassium Chloride 20 MEQ TAB PO SCH (08:48)
[2018-09-22] MEDS: Digoxin 0.125 MG TAB PO SCH (08:49)
--- NOTE | 2018-09-22 09:10 | PDOC.FM ---
- Subjective Subjective: Patient denies any complaints. She denies SOB, CP, cough. She reports her swelling in her legs has improved some. She reports walking twice yesterday. - Objective MAR Reviewed: Yes Vital Signs & Weight: Vital Signs (12 hours) Temp Pulse Resp BP Pulse Ox 09/22/18 08:49 94 09/22/18 07:36 89 18 90 L 09/22/18 07:17 97.6 F 89 18 122/74 91 L 09/22/18 04:15 97.4 F L 95 18 127/73 93 L 09/22/18 02:44 85 16 91 L Weight Admit Weight 58.876 kg Weight 52.617 kg I&O: 09/21/18 09/22/18 09/23/18 06:59 06:59 06:59 Intake Total 300 2420 Output Total 500 3750 Balance -200 -1330 Result Diagrams: 09/18/18 03:14 09/22/18 04:54 <Susan Pang - Last Filed: 09/22/18 09:09> - Objective Vital Signs & Weight: Vital Signs (12 hours) Temp Pulse Resp BP Pulse Ox 09/22/18 08:49 94 09/22/18 07:36 89 18 90 L 09/22/18 07:17 97.6 F 89 18 122/74 91 L 09/22/18 04:15 97.4 F L 95 18 127/73 93 L 09/22/18 02:44 85 16 91 L Weight Admit Weight 58.876 kg Weight 52.617 kg I&O: 09/21/18 09/22/18 09/23/18 06:59 06:59 06:59 Intake Total 300 2420 Output Total 500 3750 Balance -200 -1330 Result Diagrams: 09/18/18 03:14 09/22/18 04:54 <Nathaniel Richter - Last Filed: 09/22/18 11:34> Phys Exam - Physical Examination Constitutional: NAD HEENT: moist MMs, sclera anicteric Respiratory: no wheezing decreased breath sounds in Bilateral lung bases Cardiovascular: no significant murmur tachycardic, irregularly irregular Gastrointestinal: soft, non-tender, no distention, positive bowel sounds 1+ pitting edema in Bilateral ankles and R house up to mid-tibia Neurological: non-focal, moves all 4 limbs Psychiatric: normal affect, A&O x 3 Deviation from normal: dressing in place over LLE abrasion <Susan Pang - Last Filed: 09/22/18 09:09> Dx/Plan (1) Atrial fibrillation with rapid ventricular response Code(s): I48.91 - UNSPECIFIED ATRIAL FIBRILLATION Status: Acute (2) Acute on chronic respiratory failure with hypoxia Code(s): J96.21 - ACUTE AND CHRONIC RESPIRATORY FAILURE WITH HYPOXIA Status: Acute (3) Lung abnormality Code(s): J98.4 - OTHER DISORDERS OF LUNG Status: Acute (4) HTN (hypertension) Code(s): I10 - ESSENTIAL (PRIMARY) HYPERTENSION Status: Acute Qualifiers: Hypertension type: essential hypertension Qualified Code(s): I10 - Essential (primary) hypertension (5) Osteoarthritis Code(s): M19.90 - UNSPECIFIED OSTEOARTHRITIS, UNSPECIFIED SITE Status: Acute Qualifiers: Osteoarthritis location: multiple joints Osteoarthritis type: unspecified Qualified Code(s): M15.9 - Polyosteoarthritis, unspecified (6) Tobacco abuse Code(s): Z72.0 - TOBACCO USE Status: Acute - Plan Plan: Atrial fibrillation w/ RVR Tele: a-fib with rate in 60s-120s, mostly in 80s-90s - Diltiazem at 7.5mg/hr, may transition to oral today pending cards recs - Digoxin, dig level 1.97 this AM - CHADS2-VASC: 4 - Cards on board, appreciate recs - Echo shows EF 50-55% Acute on Chronic Resp Failure 2/2 a-fib with RVR and COPD Sats in the low 90s on 2L this AM. Pt fluid overloaded on admission, which likely contributed - supplemental oxygen for O2 < 88% - Atrovent - Lasix held 2/2 contraction alkalosis - suspect will need home O2 Pleural Effusion, Bilateral R>L - Pulm on board, appreciate recs - Plan for thoracentesis today Acute on Chronic CHF likely 2/2 a fib - Lasix held 2/2 contraction alkalosis - EF 50-55% - Daily weights, strict I/O's Possible lung mass Patient and family not interested in extensive workup - palliative care team consulted LLE Abrasion - wound care consult HTN - hold home meds for now HLD - refuses statin Tobacco Abuse Pt with extensive smoking history. Denies any desire to quit, but reports she hasn't smoked since so she may quit when she leaves here. - Counseled on cessation Goals of care - patients does not want heroic measures - DNR/DNI - Palliative care consult Code: DNR/DNI Fluids: TKO Diet: regular Dispo: pending rate control on oral medications <Susan Pang - Last Filed: 09/22/18 09:09> Attending Addendum - Attending Addendum Date/Time: 09/22/18 0418 I personally evaluated the patient and discussed the management with Dr. Pang. I agree with the History, Examination, Assessment and Plan documented above with any addition or exceptions noted below. no c/o's. vitals stable. HR mostly controlled with occasional rises above 100. Lungs unchanged. Dilt converted to p.o. Considering ablation/pacemaker. Thoracentesis today for diagnosis/therapy. <Nathaniel Richter - Last Filed: 09/22/18 11:34>
[2018-09-22] MEDS ORDERED: Magnesium 2 GM/50 ML 2 GM in Premix Bag 1 BAG IVPB SCH (09:30)
--- NOTE | 2018-09-22 10:30 | PRG ---
DATE OF SERVICE: 09/22/2018 SUBJECTIVE: Ms. Lackey is resting comfortably. She feels okay. Her edema has decreased further. OBJECTIVE: VITAL SIGNS: Blood pressure is 122/74, pulse 90 and it is irregular. LUNGS: Clear. CARDIAC: Irregularly irregular. ABDOMEN: Soft, nontender. EXTREMITIES: Still moderate edema. ASSESSMENT: 1. Atrial fibrillation, rate better controlled. 2. Digoxin levels are relatively high, she got a total of 0.375 mg of digoxin yesterday. 3. Severe chronic obstructive pulmonary disease. 4. Chronic atrial fibrillation. PLAN: 1. Change to oral diuretic. 2. Change to oral diltiazem. 3. Thoracentesis is planned. 4. If her rates controlled tomorrow, okay with me to be discharged home. If her heart rate ca nnot be controlled adequately, AV junction ablation with biventricular pacemaker should be considered . 5. Metabolic alkalosis, improved yesterday with 1 dose of Diamox.
--- NOTE | 2018-09-22 13:28 | PRG ---
DATE OF SERVICE: 09/22/2018 SERVICE: Pulmonary Medicine. INTERVAL HISTORY: The patient is doing outstanding from a respiratory standpoint. She denies any cu rrent shortness of breath, fevers, or chills. She is eating lunch right now. Otherwise, there has b een no interval change to her condition. PHYSICAL EXAMINATION: VITAL SIGNS: Afebrile, pulse 100, blood pressure 150/80, respirations 18, saturation 92% on 2 liters nasal cannula. GENERAL: The patient is awake, alert, in no apparent distress. LUNGS: Excellent air entry. There is no prolonged expiratory phase, wheezing, rhonchi, or crackles. HEART: Normal rate, regular. ABDOMEN: Soft, nontender, nondistended. Bowel sounds are positive. MUSCULOSKELETAL: No cyanosis or clubbing. There is no pitting today in the bilateral lower extremit ies. NEUROLOGIC: Grossly nonfocal. LABORATORY DATA: WBC 6.3, hemoglobin 13.7, platelets 205,000. Sodium 132, bicarbonate 30. Basic me tabolic profile is otherwise unremarkable. Magnesium and phosphorus fall within the lower limits of normal. ASSESSMENT: 1. Acute hypoxic respiratory failure, improving. 2. Pleural effusion, right greater than left. 3. Atrial fibrillation with rapid ventricular response, new onset. 4. Acute on chronic diastolic heart failure. DISCUSSION AND PLAN: We will do a bedside ultrasound today. If there is a large pocket of fluid immanuel t is there, a thoracentesis will be considered. If not, repeat chest x-ray will be performed in the outpatient setting. She has cleared her metabolic alkalosis. As such, we can continue our b.i.d. do sing on Jay.
[2018-09-22] MEDS ORDERED: Lidocaine 1% (PF) 30 ML VIAL ONE (13:51)
--- NOTE | 2018-09-22 14:31 | PDOC.THORA ---
<Aleshia Sanchez - Last Filed: 09/22/18 14:34> Thoracentesis Procedure Note - Procedure Date: 09/22/18 Time: 14:00 - PreProcedure Diagnosis: Bilateral Pleural effusions, right>left Acute on chronic hypoxic respiratory failure Atrial Fibrillation with RVR COPD - PostProcedure Diagnosis: Bilateral Pleural effusions, right>left, s/p right diagnostic and theraputic thoracentesis Acute on chronic hypoxic respiratory failure Atrial Fibrillation with RVR COPD - Description Patient tolerated procedure: well Procedure in Details: INDICATION: Bilateral pleural effusion, right>left RESIDENT: Dr. Aleshia Sanchez ATTENDING PHYSICIAN: Dr. Terrell CONSENT: Consent was obtained from the patient prior to the procedure. Indications, risks , and benefits were explained. PROCEDURE SUMMARY: A time out was performed and the chest x-ray was reviewed, the appropriate side was confirmed and marked. Hands were washed immediately prior to the procedure. We wore sterile gloves throughout the procedure. The patient was prepped and draped in a sterile manner using chlorhexidine scrub after the appropriate level was percussed and confirmed by ultrasound. 1% lidocaine was used to anesthesize the skin, subcutaneous tissue, superior aspect of the rib periosteum and parietal pleura. A finder needle was then introduced over the superior aspect of the rib to locate the pleural fluid; reuben colored fluid was aspirated at a depth of approximately 2 cm. A 10-blade scalpel was used to donald the skin at the insertion site. The Egpr-c-Pmhflzrr needle was then introduced through the skin incision into the pleural space using negative aspiration pressure. The thoracentesis catheter was then threaded without difficulty. 600 ml of reuben colored fluid was removed without difficulty. The pleural pressure after removal of the fluid was found to be -10cm H2O. The catheter was then removed during expiration. No immediate complications were noted during the procedure. The fluid will be sent for studies. Estimated blood loss is <1ml. <Higinio Terrell - Last Filed: 09/25/18 13:42> Attending Addendum - Attending Addendum Date/Time: 09/25/18 1340 I was present for the entirety of the procedure and agree the events as documented by Dr. Sanchez.
[2018-09-22 14:57] LABS: Pleural Fluid, Protein 2.8 g/dL
[2018-09-22 15:04] LABS: BF Color Yellow; Body Fluid Source PLEURAL FLUID; Clarity Hazy (Clear); Tube # EDTA
[2018-09-22 15:05] LABS: BF RBC Count - Manual 2800 /cumm; WBC/NonHematic-Auto 1270 /cumm
[2018-09-22 15:35] LABS: BF Segmented Neutrophils 6 %; Cell Count Non Hematic 24 %; Eosinophils 1 %; Lymphocytes 69 %
[2018-09-22] MEDS: Apixaban 2.5 MG TAB PO SCH (20:56)
[2018-09-22] MEDS: Acetaminophen 325 MG TAB PO PRN (20:56)
[2018-09-22] MEDS: Melatonin 3 MG TAB PO PRN (20:56)
[2018-09-22] MEDS: Ketorolac Tromethamine 10 MG TAB PO SCH (20:56)
[2018-09-23] MEDS: Ipratropium Bromide 2.5 ml Neb NEB SCH ×4 (00:26→18:47)
[2018-09-23] MEDS: Ketorolac Tromethamine 10 MG TAB PO SCH ×5 (02:14→17:17)
[2018-09-23 06:45] LABS: Magnesium 1.9 mg/dL (1.6-2.6); Phosphorus 3.2 mg/dL (2.3-4.7)
[2018-09-23 06:48] LABS: Digoxin 1.34 ng/mL (0.8-2.0)
[2018-09-23] MEDS: Potassium Chloride 20 MEQ TAB PO SCH (08:59)
[2018-09-23] MEDS: Digoxin 0.125 MG TAB PO SCH (08:59)
[2018-09-23] MEDS: Apixaban 2.5 MG TAB PO SCH (09:00)
[2018-09-23] MEDS ORDERED: Torsemide 20 MG TAB PO SCH (09:00)
--- NOTE | 2018-09-23 09:07 | PDOC.FM ---
- Subjective Subjective: Patient reports that her breathing improved some after the thoracentesis, but she was a little sore after the procedure. She denies any CP, SOB, palpitations. She denies N/V. - Objective MAR Reviewed: Yes Vital Signs & Weight: Vital Signs (12 hours) Temp Pulse Resp BP Pulse Ox 09/23/18 07:39 85 18 93 L 09/23/18 04:00 97.6 F 91 16 143/80 H 94 L 09/23/18 00:26 89 18 94 L Weight Admit Weight 58.876 kg Weight 49.895 kg I&O: 09/22/18 09/23/18 09/24/18 06:59 06:59 06:59 Intake Total 2420 1495 Output Total 3750 2900 Balance -1330 -1405 Result Diagrams: 09/18/18 03:14 09/22/18 04:54 <Susan Pang - Last Filed: 09/23/18 09:17> - Objective Vital Signs & Weight: Vital Signs (12 hours) Temp Pulse Resp BP Pulse Ox 09/23/18 08:00 98.5 F 116 H 20 148/67 H 91 L 09/23/18 07:39 85 18 93 L 09/23/18 04:00 97.6 F 91 16 143/80 H 94 L 09/23/18 00:26 89 18 94 L Weight Admit Weight 58.876 kg Weight 49.895 kg I&O: 09/22/18 09/23/18 09/24/18 06:59 06:59 06:59 Intake Total 2420 1495 Output Total 3750 2900 1200 Balance -1330 -1405 -1200 Result Diagrams: 09/18/18 03:14 09/22/18 04:54 <Nathaniel Richter - Last Filed: 09/23/18 11:21> Phys Exam - Physical Examination Constitutional: NAD HEENT: moist MMs, sclera anicteric Respiratory: no wheezing Decreased breath sounds on RLL, no rales tachycardic, irregularly irregular Gastrointestinal: soft, non-tender, no distention, positive bowel sounds Musculoskeletal: pulses present 1+ pitting edema in BLE Neurological: non-focal, moves all 4 limbs Psychiatric: normal affect, A&O x 3 <Susan Pang - Last Filed: 09/23/18 09:17> Dx/Plan (1) Atrial fibrillation with rapid ventricular response Code(s): I48.91 - UNSPECIFIED ATRIAL FIBRILLATION Status: Acute (2) Acute on chronic respiratory failure with hypoxia Code(s): J96.21 - ACUTE AND CHRONIC RESPIRATORY FAILURE WITH HYPOXIA Status: Acute (3) Lung abnormality Code(s): J98.4 - OTHER DISORDERS OF LUNG Status: Acute (4) HTN (hypertension) Code(s): I10 - ESSENTIAL (PRIMARY) HYPERTENSION Status: Acute Qualifiers: Hypertension type: essential hypertension Qualified Code(s): I10 - Essential (primary) hypertension (5) Osteoarthritis Code(s): M19.90 - UNSPECIFIED OSTEOARTHRITIS, UNSPECIFIED SITE Status: Acute Qualifiers: Osteoarthritis location: multiple joints Osteoarthritis type: unspecified Qualified Code(s): M15.9 - Polyosteoarthritis, unspecified (6) Tobacco abuse Code(s): Z72.0 - TOBACCO USE Status: Acute - Plan Plan: Atrial fibrillation w/ RVR Tele: a-fib with rate in 60s-120s, mostly in 90s-100s, but was 110 during my eval - Diltiazem PO - Digoxin - CHADS2-VASC: 4, continue eliquis - Cards on board, appreciate recs - Echo shows EF 50-55% Acute on Chronic Resp Failure 2/2 a-fib with RVR and COPD Sats in the low 90s on 2L this AM. Pt fluid overloaded on admission, which likely contributed - Torsemide - supplemental oxygen for O2 < 88% - Atrovent - suspect will need home O2, will do walking test today Pleural Effusion, Bilateral R>L. Thoracentesis appears transudative - Pulm on board, appreciate recs Acute on Chronic CHF likely 2/2 a fib - EF 50-55% - Daily weights, strict I/O's - Torsemide Possible lung mass Patient and family not interested in extensive workup - palliative care team consulted JEFF Abrasion - wound care consult HTN - hold home meds for now HLD - refuses statin Tobacco Abuse Pt with extensive smoking history. Denies any desire to quit, but reports she hasn't smoked since so she may quit when she leaves here. - Counseled on cessation Goals of care - patients does not want heroic measures - DNR/DNI - Palliative care consult Code: DNR/DNI Fluids: TKO Diet: regular Dispo: pending rehab approval and walking test <Susan Pang - Last Filed: 09/23/18 09:17> Attending Addendum - Attending Addendum Date/Time: 09/23/18 1117 I personally evaluated the patient and discussed the management with Dr. Pang. I agree with the History, Examination, Assessment and Plan documented above with any addition or exceptions noted below. Feeling better. Afib persists but rate reasonably controlled. Effusion transudative. Path pending. Clinically stable but deconditioned. Eval for Rehab pending. <Nathaniel Richter - Last Filed: 09/23/18 11:21>
--- NOTE | 2018-09-23 10:20 | PRG ---
DATE OF SERVICE: 09/19/2018 SUBJECTIVE: Ms. Lackey is sitting up in bed, feeling fine. No complaints. No chest pain or pressure. PHYSICAL EXAMINATION: VITAL SIGNS: Heart rate when she is supine is 80-90, when she sits up, it goes to 110. Blood pressu re 148/67. LUNGS: Clear. She had a thoracentesis yesterday. CARDIAC: Irregular, irregular. ABDOMEN: Soft, nontender. EXTREMITIES: There is only mild to moderate edema. PERTINENT LABORATORY: The digoxin level was 1.34. ASSESSMENT: 1. Atrial fibrillation, chronic. 2. Severe chronic obstructive pulmonary disease. 3. Status post thoracentesis. 4. Relatively high heart rate, but I am reluctant to go higher on the diltiazem unless we need to. We will likely have more side effects with the diltiazem on higher doses. PLAN: 1. Digoxin 0.125 mg a day, would not go higher. 2. Cardizem-CD will leave it at 180 mg a day, as an outpatient could go to 240 if needed. 3. If we are just unable to control the heart rate could place a biventricular pacemaker, at least h opefully a biventricular pacemaker and AV junction ablation that is the last option if the rate canno t be controlled. The patient is ready to be discharged from my standpoint.
--- NOTE | 2018-09-23 11:55 | PRG ---
DATE OF SERVICE: 09/23/2018 SERVICE: Pulmonary Medicine INTERVAL HISTORY: The patient is doing outstanding from a respiratory standpoint. She denies any cu rrent chest pain, fevers, chills, nausea, vomiting or diarrhea. Otherwise, there has been no interva l change to her condition. She is breathing very comfortably. She is not having any back discomfort . PHYSICAL EXAMINATION: VITAL SIGNS: Afebrile, pulse 116, blood pressure 148/67, respirations 20, saturation 91% on 2 liters nasal cannula. GENERAL: The patient is awake, alert, in no apparent distress. LUNGS: Excellent air entry. There is no prolonged expiratory phase. Dependent crackles are minimal . There is improved air entry at the right base. No wheezing or rhonchi appreciated. HEART: Normal rate, regular. ABDOMEN: Soft, nontender, nondistended. Bowel sounds are positive. MUSCULOSKELETAL: No cyanosis or clubbing. There is no pitting in the bilateral lower extremities. NEUROLOGIC: Grossly nonfocal. LABORATORY DATA: Magnesium and phosphorus fall within normal limits. The pleural fluid is consisten t with a transudate. PH was normal. Body fluid culture is negative to date. No organisms were iden tified. ASSESSMENT: 1. Acute hypoxic respiratory failure, resolving. 2. Pleural effusion, right greater than left, status post thoracentesis on the right demonstrating a transudate. 3. Atrial fibrillation with rapid ventricular response, new onset. 4. Acute on chronic diastolic heart failure. DISCUSSION AND PLAN: There is no indication for antibiotics directed at lung issues. From my perspe ctive, the patient is stable for transition out of the hospital. She requires a repeat chest x-ray i n 4-6 weeks. If the infiltrate on that side persists, pulmonary consultation should be considered in the outpatient setting. At this point, she has no further requirement for inpatient Pulmonary Criti umberto Care opinion and I will sign off.
[2018-09-23 16:20] VITALS: BP 124/73; TEMP 97.7
--- NOTE | 2018-09-24 15:11 | DIS-2 ---
DATE OF ADMISSION: 09/17/2018 DATE OF DISCHARGE: 09/23/2018 ADMITTING ATTENDING: Rafi Gary M.D. DISCHARGE ATTENDING: Nathaniel Richter M.D. ADMITTING RESIDENT: Brenden Tejada D.O. DISCHARGE RESIDENT: Susan Pang M.D. CONSULTATIONS: 1. Luther West M.D. with Cardiology. 2. Higinio Terrell M.D. with Pulmonology. PROCEDURES: Thoracentesis -- right sided on 09/22/2018. IMAGIN. Echocardiogram showed ejection fraction of 50%-55%. 2. Chest x-ray on 09/17/2018 showed moderate right pleural effusion with adjacent right basilar opac ity. Prominence of right perihilar region. Underlying mass cannot be excluded. 3. Chest x-ray on 09/21/2018 showed bilateral pleural effusions, larger on the right side. Stable v ascular congestion and cardiomegaly. PRIMARY DIAGNOSES: 1. Atrial fibrillation with rapid ventricular rate. 2. Acute on chronic respiratory failure. 3. Bilateral pleural effusions. 4. Acute on chronic congestive heart failure. 5. Possible lung mass. 6. Chronic obstructive pulmonary disease. 7. Left lower extremity abrasion. SECONDARY DIAGNOSES: 1. Hypertension. 2. Hyperlipidemia. 3. Tobacco abuse. DISCHARGE MEDICATIONS: 1. Eliquis 2.5 mg p.o. b.i.d. 2. Digoxin 0.125 mg p.o. q.a.m. 3. Diltiazem 240 mg p.o. daily. 4. Atrovent 2.5 mL nebs q.6 hours p.r.n. 5. Melatonin 3 mg p.o. at bedtime p.r.n. insomnia. 6. Potassium chloride 20 mEq p.o. q.a.m. with meals. 7. Torsemide 20 mg p.o. daily. 8. Amlodipine 10 mg p.o. daily. DISCONTINUED MEDICATIONS: None. HISTORY OF PRESENT ILLNESS/HOSPITAL COURSE: This is an 83-year-old female with past medical history of hypertension who presented due to 2 weeks of leg swelling. The patient denied any other complaint s except some shortness of breath. The patient was found on exam to be in atrial fibrillation with R VR. She was started on a diltiazem drip and her rate improved from the rate of 120s down to the 100s . The patient was started on therapeutic Lovenox and then switched over to Eliquis per Cardiology re commendations. The patient got an echocardiogram, which showed an ejection fraction of 50%-55%. The patient was diuresed due to fluid overload initially with Lasix and then later switched over to tors emide. The patient was attempted to be weaned off the diltiazem drip and started on oral diltiazem, however, at this point, her heart rate increased back to the 120s. The patient was started back on t he diltiazem drip at 7.5 and remained on this for 2 more days. The patient was given digoxin per Car diology. The patient was then taken off the diltiazem drip and started back on oral diltiazem initia lly at a dose of 160 mg and then on the day of discharge increased to 240 mg. The patient had a righ t-sided pleural effusion and later bilateral pleural effusions, right greater than left. The patient got a therapeutic thoracentesis done on 09/22/2018. The pleural fluid was transudative and did not grow out any organisms. The path from the pleural fluid is still pending at this time. The patient also had a possible lung mass that the patient declined any formal workup for. The patient refused t o quit smoking and was counseled on the risks and benefits of no workup for this lung mass. The shira ent was able to be discharged to a rehab facility to regain her strength and was discharged in stable condition, still in atrial fibrillation; however, her rate was controlled. DISPOSITION: Stable. DISCHARGE INSTRUCTIONS: 1. Location: Rehab at [facility]. 2. Diet: Heart healthy. 3. Activity: As tolerated. 4. Followup: With Dr. Luu in 7 days, Dr. West in 2-3 weeks, will need a repeat chest x-ray i n 4-6 weeks and follow up with Pulmonology if the pleural effusion persists.
== END 2018-09-23 20:08 | DRG 291 ==
LOC: ERS 09:06 → IMCU/EMU 15:37 → 2SE 09-18 10:16 → 2NO 09-18 18:22
PROVIDERS: ADMIT Family Medicine; ATTEND Family Medicine
DX: I11.0 Hypertensive heart disease with heart failure (principal); J96.01 Acute respiratory failure with hypoxia; J90 Pleural effusion, not elsewhere classified; E87.3 Alkalosis; I50.33 Acute on chronic diastolic (congestive) heart failure; I48.91 Unspecified atrial fibrillation; J44.9 Chronic obstructive pulmonary disease, unspecified; R91.8 Other nonspecific abnormal finding of lung field; F17.210 Nicotine dependence, cigarettes, uncomplicated; K27.9 Peptic ulcer, site unspecified, unspecified as acute or chronic, without hemorrhage or perforation; Z66 Do not resuscitate; M19.90 Unspecified osteoarthritis, unspecified site; S80.812A Abrasion, left lower leg, initial encounter; E78.5 Hyperlipidemia, unspecified
CPT/HCPCS: 36415; 36416; 71045; 71046; 80048; 80053; 80162; 82553; 82945; 83615; 83735; 83880; 83986; 84100; 84157; 84443; 84484; 85025; 85060; 87070; 87116; 87205; 87206; 88112; 88305; 89051; 90471; 90662; 93005; 93306; 93798; 94640; 94760; 96374; G0008; G8978-GP-CI; G8979-GP-CI; G8980-GP-CI; G8987-GO-CJ; G8988-GO-CI; J1120; J1160; J1650; J1940; J2001; J3490; J7050; J7644

== ENCOUNTER 2018-11-02 08:54 | Outpatient (CLI) | payer MEDICARE, OTHER ==
--- NOTE | 2018-11-02 10:23 | RAD ---
CHEST TWO VIEWS: Date: 11-02-18 Comparison: 09-21-18 History: Pleural effusion. FINDINGS: There is increased linear interstitial density noted bilaterally, stable when compared to the prior e xamination. The descending thoracic aorta is tortuous and there is atherosclerotic calcification of a prominent aortic knob, stable. Calcified nodes in the right paratracheal region and right hilum are present. No significant residual pleural effusion is noted. Prior imaging demonstrated a small to moderate rig ht sided pleural effusion. Stable prominent anterior wedge compression fracture of the lower thoracic spine. IMPRESSION: No acute findings. Chronic findings as detailed above. POS: [facility]
== END 2018-11-02 08:55 | disposition home or self-care (01) ==
LOC: BICRAD 08:54
PROVIDERS: ATTEND Nurse Practitioner Family
DX: J90 Pleural effusion, not elsewhere classified (principal); I70.0 Atherosclerosis of aorta; S22.000A Wedge compression fracture of unspecified thoracic vertebra, initial encounter for closed fracture
CPT/HCPCS: 71046

== ENCOUNTER 2019-02-04 01:53 | Emergency (ER) | payer MEDICARE, OTHER ==
[2019-02-04] MEDS ORDERED: Ketorolac Tromethamine 30 MG/ML VIAL ONE (02:20)
[2019-02-04 03:11] LABS: #Basophils 0.1 thou/uL (0.0-0.2); #Lymphocytes 1.2 thou/uL (1.20-3.40); #Monocytes 0.7 thou/uL (0.11-0.59); #Neutrophils 6.5 thou/uL (1.40-6.50); %Eosinophils 0.1 % (0.0-10.0); %Lymphocytes 13.7 % (21.0-51.0); %Monocytes 7.9 % (0.0-10.0); %Neutrophils 77.3 % (42.0-75.0); Hemoglobin 11.8 g/dL (12.0-16.0); Mean Corpuscular HGB CONC 33.5 g/dL (32.0-36.0); Mean Corpuscular Hemoglobin 33.2 pg (27.0-31.0); Mean Corpuscular Volume 98.9 fL (78.0-98.0); Mean Platelet Volume 8.9 fL (7.4-10.4); Platelet Count 214 thou/uL (130-400); RBC Distribution Width 13.8 % (11.5-14.5); Red Blood Cell (RBC) Count 3.56 mill/uL (4.20-5.40); White Blood Cell (WBC) Count 8.4 thou/uL (4.8-10.8)
[2019-02-04] MEDS ORDERED: Morphine 2 MG/ML SYRINGE ONE (03:26)
[2019-02-04 03:27] LABS: ALT (SGPT) 15 U/L (8-55); AST (SGOT) 20 U/L (5-34); Albumin 3.2 g/dL (3.4-4.8); Alkaline Phosphatase 112 U/L (40-150); Anion Gap 14 mmol/L (10-20); BUN (Urea Nitrogen) 25 mg/dL (9.8-20.1); Bilirubin, Total 0.9 mg/dL (0.2-1.2); Calc. Creatinine Clearance 0 mL/min (70-130); Calcium 9.1 mg/dL (7.8-10.44); Carbon Dioxide 25 mmol/L (23-31); Chloride 100 mmol/L (98-107); Estimated GFR-MDRD 70; Globulin 3.1 g/dL (2.4-3.5); Glucose 83 mg/dL (83-110); Potassium 4.7 mmol/L (3.5-5.1); Protein, Total 6.3 g/dL (6.0-8.3); Sodium 134 mmol/L (136-145)
--- NOTE | 2019-02-04 08:01 | RAD ---
TWO VIEWS RIGHT HIP: COMPARISON: None. HISTORY: Fall 2 weeks ago with right hip pain. FINDINGS: Two views right hip show no evidence of acute fracture or dislocation. No degenerative changes are s een. Diffuse soft tissue swelling is seen. Vascular calcifications are present. IMPRESSION: No evidence of acute osseous abnormality. POS: [facility]
--- NOTE | 2019-02-04 08:02 | RAD ---
TWO VIEWS LEFT HIP: HISTORY: Fall. FINDINGS: AP and frogleg views left hip obtained. Images demonstrate extensive vascular calcifications. He left hip was unremarkable. No evidence of fractures, subluxations, or bony lesions seen. IMPRESSION: No evidence of acute left hip pathology is seen. POS: [facility]
--- NOTE | 2019-02-04 08:07 | RAD ---
SINGLE VIEW OF THE CHEST: COMPARISON: 09/17/2018. HISTORY: Fall with chest pain. FINDINGS: A single view of the chest shows an enlarged but stable cardiomediastinal silhouette. Atheroscleroti c calcifications are seen in the aorta. Increased interstitial lung markings are present. Calcified right hilar and mediastinal lymph nodes are seen. There is no evidence of consolidation, mass, or p leural effusion. IMPRESSION: No evidence of acute cardiopulmonary disease. POS: [facility]
--- NOTE | 2019-02-04 08:38 | CT ---
PRELIMINARY REPORT/[facility]/EMERGENTY AFTER-HOURS PROCEDURE CT Cervical Spine Without Contrast EXAM DATE/TIME: 02/04/2019 3:11 AM CLINICAL HISTORY: 83 years old, female; Injury or trauma; Fall; Initial encounter; Blunt trauma; Patient HX: PT had two mechanical falls; Once two weeks ago, once two days ago. Both times was trying to sit down in her of fice desk chair and the chair moved and she fell backwards onto her bottom. Since the first fall, she has had left hip and neck pain. Since the second, she has had right hip pain. TECHNIQUE: Axial computed tomography images of the cervical spine without intravenous contrast. COMPARISON: No relevant prior studies available. FINDINGS: Vertebrae: On axial CT images, no definite acute fracture is visible. Sagittal and coronal reconstructions show no fracture or subluxation. Prior laminectomies from C4 through C6. Mild to moderate degenerative disc changes and facet joint ar thritis at multiple levels. Discs/Spinal canal/Neural foramina: Very prominent bulging/protruding disc suspected at C7-T1. This a ppears to cause moderate spinal canal narrowing. Mild to moderate bulging discs at C2-3 and C3-4. MRI could be more specific/sensitive if clinically indicated. Thyroid: 4 mm nodule or cyst suspected in the upper pole of the right thyroid gland. Lungs: Lung apices appear essentially unremarkable. IMPRESSION: 1. No definite acute fracture or subluxation by CT. 2. Very prominent bulging/protruding disc suspected at C7-T1. See above. 3. Other findings discussed above. Thank you for allowing us to participate in the care of your patient. Dictated and Authenticated by: Sabas Carson MD 02/04/2019 4:00 AM Central Time ([place] & [place]) FINAL REPORT EMERGENCY AFTER HOURS CT CERVICAL SPINE: Date: 02/04/19 FINDINGS: I agree with the preliminary report provided by Yadira. There are postsurgical changes of posterior dec ompression of C5 and C6. There is dilatation of the transverse foramina on the right at C6 which may be related to ectasia of the right vertebral artery. There are prominent calcifications involving the carotid and vertebral artery systems. There is emphysematous change involving the lung apices. There is diffuse osteopenia. There is scattered degenerative change. There is very slight anterior transla tion of C5 on C6, which is likely degenerative. IMPRESSION: I agree with the preliminary report provided. 1. No acute fracture or subluxation is evident. There is multilevel spondylosis of the cervical spin e with postoperative change of the cervical spine. 2. There is prominence of the right transverse foramina of the C6 vertebral body which may reflect e ctasia of the vertebral artery. There is prominent atherosclerotic disease of the vertebral and carot id arterial system. If clinically indicated, further evaluation with CTA of the neck would be helpful for additional characterization. CODE T. POS: [facility]
--- NOTE | 2019-02-04 08:39 | CT ---
PRELIMINARY REPORT/[facility]/EMERGENTY AFTER-HOURS PROCEDURE CT Head Without Contrast EXAM DATE/TIME: 02/04/2019 3:11 AM CLINICAL HISTORY: 83 years old, female; Injury or trauma; Fall; Initial encounter; Blunt trauma (contusions or hematoma s); Patient HX: PT had two mechanical falls; Once two weeks ago, once two days ago. Both times was tr justine to sit down in her office desk chair and the chair moved and she fell backwards onto her bottom. Since the first fall, she has had left hip and neck pain. Since the second, she has had right hip pain. TECHNIQUE: Axial computed tomography images of the head/brain without contrast. COMPARISON: No relevant prior studies available. FINDINGS: Brain: No acute intracranial hemorrhage or mass effect. There is decreased attenuation in the periventricular white matter, likely from microvascular disease . No definite acute infarct by CT. Ventricles: Ventricle size is normal for age. Bones/joints: No definite acute skull fracture. Sinuses: 15 mm retention cyst or polyp in the right maxillary sinus. Included paranasal sinuses other carrillo appear essentially clear. Mastoid air cells: No significant acute finding. Vasculature: Prominent vascular calcifications noted in the internal carotid and vertebral basilar sy stems. IMPRESSION: 1. No acute intracranial bleed or mass effect. 2. Changes of microvascular disease. 3. Other findings discussed above. Thank you for allowing us to participate in the care of your patient. Dictated and Authenticated by: Sabas Carson MD 02/04/2019 3:47 AM Central Time ([place] & [place]) FINAL REPORT EMERGENCY AFTER HOURS CT BRAIN WITHOUT CONTRAST: Date: 02/04/19 FINDINGS/IMPRESSION: I agree with the findings and impression given in the preliminary report per [facility] physician. Small ve ssel ischemic disease without acute intracranial abnormality. POS: [facility]
== END 2019-02-04 04:44 | disposition home or self-care (01) ==
LOC: ERS 01:53
DX: M25.551 Pain in right hip (principal); M25.552 Pain in left hip; I10 Essential (primary) hypertension; I48.91 Unspecified atrial fibrillation; F17.210 Nicotine dependence, cigarettes, uncomplicated; W19.XXXA Unspecified fall, initial encounter
CPT/HCPCS: 70450; 71045; 72125; 80053; 84484; 85025; 93005; 96374; 96375; J1885; J2270

== ENCOUNTER 2019-09-04 08:02 | Inpatient (IN) | payer MEDICARE ==
[2019-09-04] MEDS ORDERED: Furosemide 40 MG/4 ML VIAL ONE (08:13)
[2019-09-04 09:07] LABS: Digoxin 1.03 ng/mL (0.8-2.0)
[2019-09-04 09:08] LABS: ALT (SGPT) Less than 7 U/L (8-55); AST (SGOT) 12 U/L (5-34); Albumin 4.1 g/dL (3.4-4.8); Alkaline Phosphatase 97 U/L (40-110); Anion Gap 15 mmol/L (10-20); BUN (Urea Nitrogen) 34 mg/dL (9.8-20.1); Bilirubin, Total 0.9 mg/dL (0.2-1.2); Calc. Creatinine Clearance 0 mL/min (70-130); Calcium 9.3 mg/dL (7.8-10.44); Carbon Dioxide 27 mmol/L (23-31); Chloride 97 mmol/L (98-107); Estimated GFR-MDRD 50; Globulin 4.4 g/dL (2.4-3.5); Glucose 90 mg/dL (83-110); Hemoglobin 15.4 g/dL (12.0-16.0); Magnesium 1.8 mg/dL (1.6-2.6); Mean Corpuscular HGB CONC 33.2 g/dL (32.0-36.0); Mean Corpuscular Hemoglobin 32.3 pg (27.0-31.0); Mean Corpuscular Volume 97.4 fL (78.0-98.0); Mean Platelet Volume 6.8 fL (7.4-10.4); Platelet Count 365 thou/uL (130-400); Potassium 3.8 mmol/L (3.5-5.1); Protein, Total 8.5 g/dL (6.0-8.3); RBC Distribution Width 17.5 % (11.5-14.5); Red Blood Cell (RBC) Count 4.76 mill/uL (4.20-5.40); Sodium 135 mmol/L (136-145)
[2019-09-04 09:23] LABS: Anisocytosis SLIGHT = 6-15 cells (100X) (0-5/hpf); Band 2 % (5-11); Large Platelets MODERATE; Lymphocytes 8 % (21-51); MDiff Complete? YES; Monocytes 9 % (0-10); Neutrophil 81 % (42-75); Ovalocytes SLIGHT = 2-5 cells (100X) (0-1/hpf); Platelet Morphology Comment Appears Adequate; Polychromasia SLIGHT = 2-3 cells (100X) (0-2/hpf); White Blood Cell (WBC) Count 5.2 thou/uL (4.8-10.8)
[2019-09-04] MEDS ORDERED: HYDROcodone/Acetaminophen 5/325 mg Tablet PO PRN ×2 (11:00)
[2019-09-04] MEDS ORDERED: Acetaminophen 325 MG TAB PO PRN (11:00)
[2019-09-04] MEDS ORDERED: Ondansetron ODT 4 MG TAB SL PRN (11:00)
[2019-09-04] MEDS ORDERED: Ondansetron PF 4 MG/2 ML Vial IVP PRN (11:00)
--- NOTE | 2019-09-04 11:38 | RAD ---
PORTABLE AP CHEST XRAY: HISTORY: Shortness of breath that started last night. Dyspnea. COMPARISON: 02/04/2019. FINDINGS: There has been interval development of a moderately large right pleural effusion which occupies appro ximately of the right hemithorax with associated parenchymal changes probably related to atelectasi s. There are linear densities seen at the left lung base which could be related to atelectasis or de veloping pneumonitis. Chronic lung changes are present. The right cardiac border is obscured. Prominent vascular calcifications are seen in a tortuous thora cic aorta. Evidence of prior granulomatous disease is present. There is osteopenia. IMPRESSION: 1. Interval development of moderately large right pleural effusion. 2. Linear and minimal patchy densities left lung base which may be related to atelectasis versus pne umonitis. Followup is recommended. POS: [facility]
[2019-09-04] MEDS: Furosemide 20 MG/2 ML VIAL SLOW IVP SCH (15:29)
--- NOTE | 2019-09-04 17:59 | CON ---
DATE OF CONSULTATION: 09/04/2019 REASON FOR CONSULTATION: Atrial fibrillation. HISTORY OF PRESENT ILLNESS: Ms. Lackey is an 84-year-old woman, who recently presented with shortness of breath, lower extremity edema, and atrial fibrillation. Atrial fibrillation appears to be chronic. She has been on Eliquis in the past. She is a patient of Dr. Luther West. She currently has no other specific complaints or concerns. No chest pain or pressure noted. She had a hospitalization in August 2018, where she was admitted for similar symptoms. She did have lower extremity edema in addition to shortness of breath. She has severe COPD and recently stopped smoking 1 year ago. PAST MEDICAL HISTORY: Hypertension, peptic ulcer disease, laminectomy, hysterectomy, bladder sling, cataract surgery. SOCIAL HISTORY: Stopped alcohol and tobacco products 1 year ago. REVIEW OF SYSTEMS: Ten-point review of systems reviewed, as above, otherwise negative. HOME MEDICATIONS: 1. Potassium chloride. 2. Atrovent. 3. Cardizem. 4. Lanoxin. 5. Eliquis. 6. Demadex. 7. Melatonin. 8. Norvasc. PHYSICAL EXAMINATION: GENERAL: Patient is a pleasant woman, who is in no acute distress. She does appear older than stated age. VITAL SIGNS: Blood pressure 116/71, pulse 100, temperature afebrile. NEUROLOGIC: The patient is alert and oriented x3 with no focal neurologic deficits. HEENT: Sclerae without icterus. Mouth has moist mucous membranes with normal pallor. NECK: No JVD. Carotid upstroke brisk. No bruits bilaterally. LUNGS: Clear to auscultation with unlabored respirations. BACK: No scoliosis or kyphosis. CARDIAC: Irregularly irregular rate and rhythm with normal S1 and S2. No S3 or S4 noted. No significant rubs, murmurs, thrills, or gallops noted throughout the precordium. PMI is not displaced. There is no parasternal heave. ABDOMEN: Soft, nontender, nondistended. No peritoneal signs present. No hepatosplenomegaly. No abnormal striae. EXTREMITIES: 2+ femoral and 2+ dorsalis pedis pulses. No cyanosis or clubbing. 2+ to 3+ pitting edema. SKIN: No gross abnormalities. PERTINENT LABORATORY DATA: Hemoglobin 15.4. Creatinine 1.05. BNP of 1271. IMAGING STUDIES: Previous echo dated 09/18/2018, LVEF 50% to 55%, [id number], moderate pulmonary hypertension. IMPRESSION: 1. Atrial fibrillation - chronic. 2. Lower extremity edema. 3. Acute on chronic diastolic dysfunction. 4. Chronic obstructive pulmonary disease. 5. Previous tobacco abuse. RECOMMENDATIONS: 1. Continue Cardizem and digoxin. 2. Agree with low-dose Lasix 20 mg IV. 3. Continue Eliquis 2.5 b.i.d. 4. Restrict IV fluid and restrict sodium. Job ID: [id number]
[2019-09-04] MEDS: Ipratropium Bromide 2.5 ml Neb NEB SCH (18:28)
[2019-09-04] MEDS ORDERED: Melatonin 3 MG TAB PO PRN (20:45)
[2019-09-04] MEDS ORDERED: diphenhydrAMINE 25 MG CAP PO PRN (20:45)
[2019-09-04] MEDS: Apixaban 2.5 MG TAB PO SCH (21:32)
[2019-09-05] MEDS: Ipratropium Bromide 2.5 ml Neb NEB SCH ×4 (00:20→19:02)
[2019-09-05 04:52] LABS: Hemoglobin 13.6 g/dL (12.0-16.0); Platelet Count 313 thou/uL (130-400)
[2019-09-05 04:57] LABS: #Eosinphils 0.1 thou/uL (0.0-0.7); #Monocytes 0.7 thou/uL (0.11-0.59); #Neutrophils 5.4 thou/uL (1.40-6.50); %Basophils 0.3 % (0.0-1.0); %Eosinophils 1.6 % (0.0-10.0); %Lymphocytes 14.2 % (21.0-51.0); %Monocytes 9.1 % (0.0-10.0); %Neutrophils 74.7 % (42.0-75.0); Hemoglobin 13.5 g/dL (12.0-16.0); Mean Corpuscular HGB CONC 32.1 g/dL (32.0-36.0); Mean Corpuscular Hemoglobin 32.3 pg (27.0-31.0); Mean Platelet Volume 6.8 fL (7.4-10.4); Platelet Count 330 thou/uL (130-400); RBC Distribution Width 17.2 % (11.5-14.5); Red Blood Cell (RBC) Count 4.19 mill/uL (4.20-5.40); White Blood Cell (WBC) Count 7.2 thou/uL (4.8-10.8)
[2019-09-05 05:11] LABS: Anion Gap 15 mmol/L (10-20); BUN (Urea Nitrogen) 28 mg/dL (9.8-20.1); Calc. Creatinine Clearance 51 mL/min (70-130); Calcium 8.4 mg/dL (7.8-10.44); Carbon Dioxide 27 mmol/L (23-31); Chloride 98 mmol/L (98-107); Estimated GFR-MDRD 73; Glucose 71 mg/dL (83-110); Potassium 3.8 mmol/L (3.5-5.1); Sodium 136 mmol/L (136-145)
[2019-09-05] MEDS: Furosemide 20 MG/2 ML VIAL SLOW IVP SCH ×2 (06:44→14:59)
[2019-09-05] MEDS: Digoxin 0.125 MG TAB PO SCH (08:39)
[2019-09-05] MEDS: Apixaban 2.5 MG TAB PO SCH ×2 (08:39→21:45)
[2019-09-05] MEDS: Potassium Chloride 20 MEQ TAB PO SCH (08:39)
[2019-09-05] MEDS: Diltiazem HCl CD 300 mg Capsule PO SCH (08:40)
[2019-09-05] MEDS ORDERED: FLU VACC TS2019-20(65YR UP)/PF 180 MCG/0.5 ML SYRINGE IM ONE (09:00)
--- NOTE | 2019-09-05 11:43 | PDOC.HOSPP ---
- Subjective Subjective: Patient seen and examined. She states that her breathing has improved. Less lower extremity edema. Patient with moderately large pleural effusion. Patient states that this happened roughly one year ago and she had a thoracentesis and she was feeling significantly better afterwards. Patient is a DNR. Patient is reasonable and understands risks and benefits of thoracentesis. Patient tells me she wants to do whatever she can to leave the hospital as soon as she can. I discussed the possibility of thoracentesis with the patient and Dr. Resendez. Dr. Resendez states that thoracentesis is not indicated at this time and we will evaluate her over the next five days with diuretic therapy alone. Will defer thoracentesis to pulmonology. - Objective Vital Signs & Weight: Vital Signs (12 hours) Temp Pulse Pulse Pulse Resp BP BP 09/05/19 09:33 88 83 113/63 116/64 09/05/19 08:40 121 H 09/05/19 08:39 121 H 09/05/19 08:00 97.9 F 121 H 16 09/05/19 07:30 98.0 F 99 16 09/05/19 06:55 116 H 16 09/05/19 04:00 97.7 F 116 H 22 H 09/05/19 00:20 105 H 16 09/04/19 23:58 97.4 F L 96 24 H BP Pulse Ox 09/05/19 09:33 09/05/19 08:40 09/05/19 08:39 09/05/19 08:00 115/82 96 09/05/19 07:30 115/70 96 09/05/19 06:55 09/05/19 04:00 127/85 99 09/05/19 00:20 09/04/19 23:58 120/81 90 L Weight Weight 124 lb 8.979 oz I&O: 09/04/19 09/05/19 09/06/19 06:59 06:59 06:59 Intake Total 1022 Output Total 705 Balance 317 Result Diagrams: 09/05/19 03:46 09/05/19 03:46 Radiology Reviewed by me: Yes (CXR) Hospitalist ROS - Review of Systems All other systems reviewed; all pertinent +/- noted in HPI/Subj - Medication Medications: Active Medications Generic Name Dose Route Start Last Admin Trade Name Freq PRN Reason Stop Dose Admin Apixaban 2.5 mg 09/04/19 21:00 09/05/19 08:39 Eliquis PO 2.5 mg BID NED Administration Digoxin 0.125 mg 09/05/19 09:00 09/05/19 08:39 Lanoxin PO 0.125 mg QAM NED Administration Diltiazem HCl 300 mg 09/05/19 09:00 09/05/19 08:40 Cardizem Cd PO Not Given DAILY NED Diphenhydramine HCl 25 mg 09/04/19 20:45 09/04/19 21:32 Benadryl PO 25 mg HS PRN Administration Insomnia Furosemide 20 mg 09/04/19 14:00 09/05/19 06:44 Lasix SLOW IVP 20 mg 0600,1400 NED Administration Ipratropium [place] 2.5 ml 09/04/19 19:00 09/05/19 06:55 Atrovent NEB 2.5 ml [id number] NED Administration Potassium Chloride 20 meq 09/05/19 08:00 09/05/19 08:39 K-Dur PO 20 meq QAM-WM NED Administration - Exam General Appearance: NAD, awake alert Eye: PERRL, anicteric sclera ENT: no oropharyngeal lesions, moist mucosa Neck: supple, symmetric, no JVD Heart: no murmur, no gallops, no rubs Respiratory: no wheezes, no ronchi, rales Respiratory - other findings: Deminished breath sounds right lower lung butt Gastrointestinal: soft, non-tender, no rigidity Extremities: 2+ LE edema Skin: no lesions Neurological: cranial nerve grossly intact, normal sensation to touch, no focal deficits Musculoskeletal: generalized weakness Psychiatric: normal affect, A&O x 3 Hosp A/P (1) Acute on chronic diastolic CHF (congestive heart failure) Code(s): I50.33 - ACUTE ON CHRONIC DIASTOLIC (CONGESTIVE) HEART FAILURE Status : Acute (2) Acute on chronic respiratory failure with hypoxia Code(s): J96.21 - ACUTE AND CHRONIC RESPIRATORY FAILURE WITH HYPOXIA Status: Acute (3) COPD (chronic obstructive pulmonary disease) Status: Chronic (4) Atrial fibrillation with rapid ventricular response Code(s): I48.91 - UNSPECIFIED ATRIAL FIBRILLATION Status: Acute (5) HTN (hypertension) Code(s): I10 - ESSENTIAL (PRIMARY) HYPERTENSION Status: Chronic Qualifiers: Hypertension type: essential hypertension Qualified Code(s): I10 - Essential (primary) hypertension (6) Lung abnormality Code(s): J98.4 - OTHER DISORDERS OF LUNG Status: Chronic (7) Osteoarthritis Code(s): M19.90 - UNSPECIFIED OSTEOARTHRITIS, UNSPECIFIED SITE Status: Chronic Qualifiers: Osteoarthritis location: multiple joints Osteoarthritis type: unspecified Qualified Code(s): M15.9 - Polyosteoarthritis, unspecified (8) Tobacco abuse Code(s): Z72.0 - TOBACCO USE Status: Chronic - Plan Plan: medical unit with telemetry cardiology consultation, recommendations appreciated pulmonology consultation, recommendations appreciated IV diuretics cardiomyopathy regimen as able rate control for afib with Cardizem and Digoxin Eliquis for atrial fibrillation CVA prevention continue other home medications as able replace electrolytes as needed Disposition: Patient with moderately large pleural effusion. Patient states that this happened roughly one year ago and she had a thoracentesis and she was feeling significantly better afterwards. Patient is a DNR. Patient is reasonable and understands risks and benefits of thoracentesis. I told the patient that risks of thoracentesis include but are not limited to: bleeding, infection, collapse of the lung, and even . The patient tells me that "if God is ready for her, she is ready to go", however she will do whatever it takes to be breathing more comfortably and go home as soon as possible. I discussed the possibility of thoracentesis with the patient and Dr. Resendez. Dr. Resendez states that thoracentesis is not indicated at this time and we will evaluate her over the next five days with diuretic therapy alone. Will defer thoracentesis to pulmonology
--- NOTE | 2019-09-05 13:30 | PDOC.CPN ---
- Subjective Date: 09/05/19 Time: 13:29 Interval history: Patient with c/o lack of sleep due to uncomfortable bed. Otherwise stable. - Review of Systems General: denies: fever/chills, weight/appetite/sleep changes, night sweats, fatigue Respiratory: denies: cough, congestion, shortness of breath, exercise intolerance Cardiovascular: reports: edema. denies: chest pain, palpitation, paroxysmal nocturnal dyspnea, orthopnea Gastrointestinal: denies: nausea, vomiting, diarrhea, constipation, abd pain, GI bleeding Musculoskeletal: reports: pain, tenderness, arthritis/arthralgias Neurological: denies: numbness, syncope, seizure, weakness - Objective Allergies/Adverse Reactions: Allergies Allergy/AdvReac Type Severity Reaction Status Date / Time No Known Allergies Allergy Verified 09/17/18 16:29 Visit Medications: Current Medications Apixaban (Eliquis) 2.5 mg PO BID [facility] Last Admin: 09/05/19 08:39 Dose: 2.5 mg Digoxin (Lanoxin) 0.125 mg PO QAM [facility] Last Admin: 09/05/19 08:39 Dose: 0.125 mg Diltiazem HCl (Cardizem Cd) 300 mg PO DAILY [facility] Last Admin: 09/05/19 08:40 Dose: Not Given Diphenhydramine HCl (Benadryl) 25 mg PO HS PRN PRN Reason: Insomnia Last Admin: 09/04/19 21:32 Dose: 25 mg Furosemide (Lasix) 20 mg SLOW IVP 0600,1400 [facility] Last Admin: 09/05/19 06:44 Dose: 20 mg Ipratropium [place] (Atrovent) 2.5 ml NEB [id number] [facility] Last Admin: 09/05/19 06:55 Dose: 2.5 ml Melatonin (Melatonin) 3 mg PO HSPRN PRN PRN Reason: Insomnia Potassium Chloride (K-Dur) 20 meq PO QAM-WM [facility] Last Admin: 09/05/19 08:39 Dose: 20 meq Vital Signs & Weight: Vital Signs Temp Pulse Pulse Pulse Resp BP BP 09/05/19 12:00 97.3 F L 86 18 09/05/19 09:33 88 83 113/63 116/64 09/05/19 08:40 121 H 09/05/19 08:39 121 H 09/05/19 08:00 97.9 F 121 H 16 10/06/19 07:30 98.0 F 99 16 09/05/19 06:55 116 H 16 09/05/19 04:00 97.7 F 116 H 22 H BP Pulse Ox 09/05/19 12:00 108/70 88 L 09/05/19 09:33 09/05/19 08:40 09/05/19 08:39 09/05/19 08:00 115/82 96 09/05/19 07:30 115/70 96 09/05/19 06:55 09/05/19 04:00 127/85 99 Weight 124 lb 8.979 oz - Physical Exam General: alert & oriented x3, cachectic HEENT: mucus membranes moist Neck: supple neck Cardiac: other (IRR IRR) Lungs: decreased breath sounds Abdomen: soft Extremities: clubbing, 2+ LE edema - Labs Result Diagrams: 09/05/19 03:46 09/05/19 03:46 Troponin/CKMB Troponin I Less than 0.010 ng/mL (< 0.028) 09/04/19 08:22 - Telemetry Supraventricular conduction: atrial fibrillation - Assessment/Plan Assessment/Plan: 1. Chronic AF 2. Acute on chronic diastolic CHF 3. COPD Continue diuresis. Air bed order placed.
[2019-09-05] MEDS: Acetaminophen 500 MG TAB PO PRN (15:56)
--- NOTE | 2019-09-05 16:10 | CON ---
DATE OF CONSULTATION: 09/05/2019 HISTORY OF PRESENT ILLNESS: Ms. Lackey is an 84-year-old female with a history of congestive heart failure. She was seen in August 2018 with large right effusion. This was tapped. It was transudative. She has two x-rays following that admission that showed no pleural effusion on the right side. She has recently been noticing lower extremity edema, increasing shortness of breath, and blamed it on falling out of her SUV and bumping her legs in a parking lot. She eventually came to the hospital and has subsequently been admitted. I was consulted for possible thoracentesis. PAST MEDICAL HISTORY: Remarkable for, 1. Hypertension. 2. History of ulcer disease. 3. History of laminectomy. 4. Status post hysterectomy and bladder suspension. 5. History of cataract surgery. SOCIAL HISTORY: She just quit smoking a year ago. She is a former drinker. She says she is thinking about starting to smoke again because she misses it and does not feel any better since she quit. ALLERGIES: SHE HAS NO DRUG ALLERGIES. REVIEW OF SYSTEMS: Ten point review of systems completed, otherwise negative. FAMILY HISTORY: Non contributory. MEDICATIONS: Reviewed. PHYSICAL EXAMINATION: GENERAL: Pleasant woman, in no distress. She appears older than her age VITAL SIGNS: She is afebrile, heart rate is 86, respiratory rate is 18, oximetry is 96% on nasal cannula. HEENT: She has temporal muscle wasting. NECK: Supple. No lymphadenopathy. LUNGS: Remarkable for decreased breath sounds mcfp up on the right. HEART: Regular rhythm. S1 and S2 are normal. There is grade 1 to 2/6 systolic murmur. ABDOMEN: Soft and nontender. EXTREMITIES: Without clubbing, cyanosis, or edema. NEUROLOGIC: Nonfocal. LABORATORY DATA: White count is 7.2, hemoglobin 13.5, platelets 330,000. Electrolytes are normal. BNP was 1271. Globulin is 4.4. Total protein is 8.5. IMPRESSION: 1. Right pleural effusion secondary to congestive heart failure. She is asymptomatic at rest. There is no indication for thoracentesis at this time. She can just be gradually diuresed and salt restricted. 2. Hyperproteinemia and hyperglobulinemia. Serum protein electrophoresis probably should be ordered and urine immunoelectrophoresis. 3. History of hypertension. 4. History of ulcer disease. 5. History of laminectomy. 6. Long history of tobacco use with no clinical symptoms of chronic obstructive pulmonary disease based on her history. She was happy that she did not have to have a thoracentesis. Her effusion will gradually resolve with diuresis. I would not expect a rapid improvement radiographically, but this could be followed in our office in 2 to 4 weeks once her diuretics are adjusted and a negative fluid balance is documented. This is a 50 minute consult, with greater than 50% of time spent on unit coordinating care. Job ID: [id number] LALO
[2019-09-05] MEDS: Acetaminophen/Codeine 30-300mg Tablet PO PRN (21:41)
[2019-09-06] MEDS: Acetaminophen 500 MG TAB PO PRN (00:41)
[2019-09-06] MEDS: Acetaminophen/Codeine 30-300mg Tablet PO PRN ×4 (02:10→21:26)
[2019-09-06] MEDS: Ipratropium Bromide 2.5 ml Neb NEB SCH ×4 (02:29→18:23)
[2019-09-06 05:13] LABS: Anion Gap 12 mmol/L (10-20); BUN (Urea Nitrogen) 25 mg/dL (9.8-20.1); Calc. Creatinine Clearance 54 mL/min (70-130); Calcium 8.3 mg/dL (7.8-10.44); Carbon Dioxide 33 mmol/L (23-31); Chloride 98 mmol/L (98-107); Estimated GFR-MDRD 79; Glucose 91 mg/dL (83-110); Potassium 3.8 mmol/L (3.5-5.1); Sodium 139 mmol/L (136-145)
[2019-09-06] MEDS: Furosemide 20 MG/2 ML VIAL SLOW IVP SCH (06:14)
--- NOTE | 2019-09-06 07:44 | HP ---
PRIMARY CARE PHYSICIAN: None. CHIEF COMPLAINT: Shortness of breath. HISTORY OF PRESENT ILLNESS: Ms. Lackey is an 84-year-old female with past medical history of hypertension, atrial fibrillation, chronic CHF, and COPD, who had presented to the ED earlier today due to worsening shortness of breath over the last few days. She had also reported some swelling down her lower extremities as well. She states that the shortness of breath ever bad earlier this morning and she was brought in by EMS. She was found to have oxygen saturations in the 70s even while on 12L of oxygen via nasal cannula. She states that she sees Dr. West, her regional ehs manager, and her wool mixer, Dr. Terrell; however, currently does not have a PCP at the moment. She also reported some palpitations as well and was found to be in AFib with RVR on the monitor. She was treated with IV diltiazem 10 mg x1, which had seemed to help. Her chest x-ray indicated an interval development of moderately large right pleural effusion. Therefore, she was treated with IV furosemide 40 mg x1. She states that she has a history of pleural effusions in the past, which she had required a prior thoracentesis for. Currently, the patient denies fever, chills, any headache, blurred vision, dizziness, any chest pain, abdominal pain, nausea, or vomiting. Her oxygen saturation has been improving and she is stable on 3L of oxygen via nasal cannula without any further complaints. REVIEW OF SYSTEMS: All other systems reviewed and found to be negative unless mentioned in the HPI. PAST MEDICAL HISTORY: 1. Hypertension. 2. Atrial fibrillation. 3. CHF. 4. COPD. PAST SURGICAL HISTORY: 1. Cervical laminectomy. 2. Hysterectomy. PSYCHIATRIC HISTORY: None. SOCIAL HISTORY: The patient reports drinking alcohol socially roughly 3-5 days a week, she also reports using an E-cigarette daily, but denies any illicit drug use. She states that she had quit cigarettes in 2018; however, currently uses E-cigarettes. KNOWN ALLERGIES: No known drug allergies. CURRENT HOME MEDICATIONS: 1. Eliquis 2.5 mg p.o. b.i.d. 2. Amlodipine 10 mg p.o. daily. 3. Torsemide 20 mg p.o. daily. 4. Digoxin 0.125 mg p.o. daily. 5. Diltiazem 240 mg p.o. daily. 6. Ipratropium bromide 2.5 mL nebulizer q.6 h. 7. Potassium chloride 20 mEq p.o. daily. PHYSICAL EXAMINATION: VITAL SIGNS: BP 116/71, pulse 100, respirations 18, temperature 98.0, O2 saturation oxygen via nasal cannula. GENERAL: The patient is awake, alert, and oriented x3. She is currently lying comfortably in bed and in no acute distress. Her 3L of oxygen via nasal cannula is in place with no acute distress. Her family is at bedside. HEENT: Atraumatic and normocephalic. Pupils are round and reactive to light. Extraocular muscles intact. Moist mucous membranes noted. NECK: Soft and supple. Trachea midline. CARDIOVASCULAR: Irregularly irregular. RESPIRATORY: Coarse breath sounds heard at the bases and worse on the right. ABDOMEN: Soft and nontender. Bowel sounds present. MUSCULOSKELETAL: Moves all extremities equal. Pedal and radial pulses palpable 2+ bilaterally. 3+ pitting edema noted on bilateral lower extremities from the knees down. NEUROLOGIC: Cranial nerves 2 through 12 grossly intact. No focal deficits noted. Speech intact and normal. Gait, not assessed. SKIN: Warm, dry, and intact. No rashes. No ulceration noted. PSYCHIATRIC: Good mood and affect. LABORATORY DATA: WBC 5.2, RBC 4.76, hemoglobin 15.4, hematocrit 46.4, and platelet 365. Sodium 135, potassium 3.8, anion gap 15, BUN 34, creatinine 1.05, estimated GFR 50, and glucose 90. Troponin less than 0.010. BNP 1271.6. Digoxin 1.03. DIAGNOSTIC IMAGING: Portable chest x-ray revealed interval development of moderately large right pleural effusion. ASSESSMENT AND PLAN: 1. Atrial fibrillation with rapid ventricular response, currently stabilized after a dose of IV diltiazem. The patient will be monitored on the telemetry floor and we will restart her home medications and place consult for Dr. Golden, Cardiology. Her primary regional ehs manager is Dr. West. If her rates started to increase back to RVR, we will likely have to start her on a drip of diltiazem. 2. Right pleural effusion, which appears to be moderately large. She will be treated symptomatically at this time. She will likely stay on oxygen via nasal cannula as needed along with IV furosemide. We will check I's and O's and monitor closely. Repeat chest x-ray likely in the morning and place a consult for Pulmonology Services at this time as the patient has a history of this in the past and has actually required thoracentesis in the past. 3. Aimds-ke-[id number] congestive heart failure. We will place an order for an echocardiogram to check for any changes in her cardiac function. 4. History of hypertension. Continue home regimen and monitor her blood pressure and other vital signs closely. 5. History of chronic obstructive pulmonary disease. 6. Deep venous thrombosis and gastrointestinal prophylaxis. CODE STATUS: DNAR. SURROGATE DECISION MAKER: Her daughter, Angelica. DISPOSITION: Pending further workup and clinical findings. Job ID: [id number]
[2019-09-06] MEDS ORDERED: Prevnar 13-Val Conj/PF 0.5 ML SYRINGE IM ONE (09:00)
[2019-09-06] MEDS ORDERED: FLU VACC TS2019-20(65YR UP)/PF 180 MCG/0.5 ML SYRINGE IM ONE (09:00)
[2019-09-06] MEDS: Digoxin 0.125 MG TAB PO SCH (09:40)
[2019-09-06] MEDS: Apixaban 2.5 MG TAB PO SCH ×2 (09:41→21:26)
[2019-09-06] MEDS: Potassium Chloride 20 MEQ TAB PO SCH (09:41)
[2019-09-06] MEDS: Diltiazem HCl CD 300 mg Capsule PO SCH (09:41)
--- NOTE | 2019-09-06 11:13 | PDOC.HOSPP ---
- Subjective Encounter Date: 09/06/19 Encounter Time: 11:10 Subjective: less sob - Objective Vital Signs & Weight: Vital Signs (12 hours) Temp Pulse Pulse Pulse Resp BP BP 09/06/19 09:41 99 133/86 09/06/19 09:40 103 H 09/06/19 09:34 09/06/19 08:49 120 H 90 133/86 09/06/19 08:00 97.8 F 99 16 09/06/19 07:31 97 18 09/06/19 04:00 97.5 F L 82 22 H 09/06/19 00:20 97.4 F L 93 20 BP BP Pulse Ox 09/06/19 09:41 09/06/19 09:40 09/06/19 09:34 94 L 09/06/19 08:49 122/79 09/06/19 08:00 126/75 94 L 09/06/19 07:31 94 L 09/06/19 04:00 125/68 94 L 09/06/19 00:20 118/71 92 L Weight Weight 136 lb 10.986 oz I&O: 09/05/19 09/06/19 09/07/19 06:59 06:59 06:59 Intake Total 1022 1232 Output Total 705 1350 300 Balance 317 -118 -300 Result Diagrams: 09/05/19 03:46 09/06/19 04:24 Hospitalist ROS - Medication Medications: Active Medications Generic Name Dose Route Start Last Admin Trade Name Freq PRN Reason Stop Dose Admin Acetaminophen 1,000 mg 09/05/19 15:07 09/06/19 00:41 Tylenol PO 1,000 mg Q6H PRN Administration Moderate Pain (4-6) Acetaminophen/Codeine Phosphate 1 tab 09/05/19 15:07 09/06/19 06:13 Tylenol #3 PO 1 tab Q4H PRN Administration Severe Pain (7-10) Apixaban 2.5 mg 09/04/19 21:00 09/06/19 09:41 Eliquis PO 2.5 mg BID NED Administration Digoxin 0.125 mg 09/05/19 09:00 09/06/19 09:40 Lanoxin PO 0.125 mg QAM NED Administration Diltiazem HCl 300 mg 09/05/19 09:00 10/07/19 09:41 Cardizem Cd PO 300 mg DAILY NED Administration Diphenhydramine HCl 25 mg 09/04/19 20:45 09/04/19 21:32 Benadryl PO 25 mg HS PRN Administration Insomnia Ipratropium [place] 2.5 ml 09/04/19 19:00 09/06/19 07:31 Atrovent NEB 2.5 ml [id number] NED Administration Potassium Chloride 20 meq 09/05/19 08:00 09/06/19 09:41 K-Dur PO 20 meq QAM-WM NED Administration - Exam Neck: no JVD Heart: no murmur, irregular Respiratory - other findings: dull to perc on right Gastrointestinal: soft, normal bowel sounds Extremities: 2+ LE edema Hosp A/P (1) Acute on chronic diastolic CHF (congestive heart failure) Code(s): I50.33 - ACUTE ON CHRONIC DIASTOLIC (CONGESTIVE) HEART FAILURE Status : Acute (2) Acute on chronic respiratory failure with hypoxia Code(s): J96.21 - ACUTE AND CHRONIC RESPIRATORY FAILURE WITH HYPOXIA Status: Acute (3) Atrial fibrillation with rapid ventricular response Code(s): I48.91 - UNSPECIFIED ATRIAL FIBRILLATION Status: Chronic (4) HTN (hypertension) Code(s): I10 - ESSENTIAL (PRIMARY) HYPERTENSION Status: Chronic Qualifiers: Hypertension type: essential hypertension Qualified Code(s): I10 - Essential (primary) hypertension (5) Anticoagulant long-term use Code(s): Z79.01 - [facility] (CURRENT) USE OF ANTICOAGULANTS Status: Acute - Plan increase iv lasix to 40mg bid cont rate control of AFib cont anticoag
[2019-09-06] MEDS: Furosemide 40 MG/4 ML VIAL SLOW IVP SCH (13:49)
--- NOTE | 2019-09-06 15:10 | PRG ---
DATE OF SERVICE: 09/06/2019 SERVICE: Pulmonary Medicine. INTERVAL HISTORY: The patient is really doing quite well from respiratory standpoint. Denies any current chest discomfort, nausea, vomiting, fevers, or chills. She does have increasing work of breathing, particularly when getting around. Otherwise, there has been no interval change to her condition. PHYSICAL EXAMINATION: VITAL SIGNS: Afebrile, pulse 92, blood pressure 122/84, respirations 18, saturation 94% on 2 L nasal cannula. GENERAL: The patient is awake and alert, in no apparent distress. LUNGS: Decent air entry on the left. There is decreased air entry on the right. Bibasilar crackles are noted. HEART: Normal rate and regular. ABDOMEN: Soft, nontender, nondistended. Bowel sounds are positive. MUSCULOSKELETAL: No cyanosis or clubbing. There is 2+ edema in the bilateral lower extremities, which has signs of improvement. NEUROLOGIC: Grossly nonfocal. : No Brown. LABORATORY DATA: WBC 7.2, hemoglobin 13.5, platelets 330,000. Creatinine 0.71. Basic metabolic profile is otherwise unremarkable. IMAGING: Echocardiogram demonstrates a 50% ejection fraction and likely diastolic heart failure with underlying atrial fibrillation. Left atrium is moderately to severely dilated. There is severe tricuspid regurgitation, enlarged right atrium and right ventricle. ASSESSMENT: 1. Acute hypoxic respiratory failure, improving. 2. Right-sided pleural effusion, previously demonstrated as a transudate. 3. Acute on chronic diastolic heart failure. 4. Atrial fibrillation. 5. Chronic obstructive pulmonary disease without current exacerbation. DISCUSSION AND PLAN: We will continue supportive care. She will need to be diuresed until closer to euvolemia. DuoNebs will be scheduled three times daily. She will require repeat chest x-ray in the outpatient setting in 2 to 3 weeks. If the effusion persists despite fluid optimization, a repeat thoracentesis could be considered in the outpatient setting. I have counseled her to avoid salt as this may be a part of the reason for her fluid accumulation. At this point, she has no further requirements for inpatient Pulmonary or Critical Care opinion, and I will sign off. Please call with additional questions or concerns through time. Job ID: [id number]
[2019-09-06] MEDS ORDERED: Spironolactone 25 MG TAB PO SCH (17:45)
--- NOTE | 2019-09-06 17:52 | PRG ---
DATE OF SERVICE: 09/06/2019 SUBJECTIVE: Ms. Lackey says she is feeling about the same, but the edema seems to be improving to some degree. OBJECTIVE: VITAL SIGNS: Her blood pressure 117/70, pulse 88 and irregular. LUNGS: Clear. CARDIAC: Irregularly irregular. ABDOMEN: Soft, nontender. EXTREMITIES: Still severe edema. ASSESSMENT: 1. Chronic atrial fibrillation. 2. Chronic obstructive pulmonary disease. 3. Severe edema likely related to chronic obstructive pulmonary disease, atrial fibrillation, and diltiazem. PLAN: 1. Try to cut the diltiazem dose down. 2. Continue diuretics. 3. Ultimately could consider AV junction ablation with pacemaker insertion. For now, we will try to control the edema with medication. Job ID: [id number]
[2019-09-07] MEDS: Ipratropium Bromide 2.5 ml Neb NEB SCH ×4 (00:07→19:44)
[2019-09-07] MEDS: Acetaminophen/Codeine 30-300mg Tablet PO PRN ×4 (02:46→18:04)
[2019-09-07] MEDS: Furosemide 40 MG/4 ML VIAL SLOW IVP SCH ×2 (06:16→14:04)
[2019-09-07 06:39] LABS: Anion Gap 13 mmol/L (10-20); BUN (Urea Nitrogen) 20 mg/dL (9.8-20.1); Calc. Creatinine Clearance 63 mL/min (70-130); Calcium 8.8 mg/dL (7.8-10.44); Carbon Dioxide 32 mmol/L (23-31); Chloride 96 mmol/L (98-107); Estimated GFR-MDRD 84; Glucose 87 mg/dL (83-110); Potassium 4.7 mmol/L (3.5-5.1); Sodium 136 mmol/L (136-145)
--- NOTE | 2019-09-07 08:03 | PDOC.HOSPP ---
- Subjective Encounter Date: 09/07/19 Encounter Time: 08:01 Subjective: relates leg edema seems worse, sob ok - Objective Vital Signs & Weight: Vital Signs (12 hours) Temp Pulse Resp BP Pulse Ox 09/07/19 07:17 74 16 93 L 09/07/19 07:16 93 L 09/07/19 03:55 97.1 F L 75 16 130/75 95 09/07/19 00:07 91 20 09/07/19 00:00 97.4 F L 83 18 126/69 94 L 09/06/19 20:54 92 L Weight Weight 136 lb 9.6 oz I&O: 09/06/19 09/07/19 09/08/19 06:59 06:59 06:59 Intake Total 1232 375 Output Total 1350 1500 Balance -118 -1125 Result Diagrams: 09/05/19 03:46 09/07/19 05:37 Hospitalist ROS - Medication Medications: Active Medications Generic Name Dose Route Start Last Admin Trade Name Freq PRN Reason Stop Dose Admin Acetaminophen 1,000 mg 09/05/19 15:07 09/06/19 00:41 Tylenol PO 1,000 mg Q6H PRN Administration Moderate Pain (4-6) Acetaminophen/Codeine Phosphate 1 tab 09/05/19 15:07 09/07/19 06:15 Tylenol #3 PO 1 tab Q4H PRN Administration Severe Pain (7-10) Apixaban 2.5 mg 09/04/19 21:00 09/06/19 21:26 Eliquis PO 2.5 mg BID NED Administration Digoxin 0.125 mg 09/05/19 09:00 09/06/19 09:40 Lanoxin PO 0.125 mg QAM NED Administration Diphenhydramine HCl 25 mg 09/04/19 20:45 09/04/19 21:32 Benadryl PO 25 mg HS PRN Administration Insomnia Furosemide 40 mg 09/06/19 14:00 09/07/19 06:16 Lasix SLOW IVP 40 mg 0600,1400 NED Administration Ipratropium [place] 2.5 ml 09/04/19 19:00 09/07/19 07:17 Atrovent NEB 2.5 ml [id number] NED Administration Potassium Chloride 20 meq 09/05/19 08:00 09/06/19 09:41 K-Dur PO 20 meq QAM-WM NED Administration - Exam Neck: no JVD Heart: no murmur, irregular, III/IV Respiratory - other findings: dull RLL, OW clear Gastrointestinal: soft, non-tender, normal bowel sounds Extremities: 2+ LE edema Hosp A/P (1) Acute on chronic diastolic CHF (congestive heart failure) Code(s): I50.33 - ACUTE ON CHRONIC DIASTOLIC (CONGESTIVE) HEART FAILURE Status : Acute (2) Acute on chronic respiratory failure with hypoxia Code(s): J96.21 - ACUTE AND CHRONIC RESPIRATORY FAILURE WITH HYPOXIA Status: Acute (3) Atrial fibrillation with rapid ventricular response Code(s): I48.91 - UNSPECIFIED ATRIAL FIBRILLATION Status: Chronic (4) HTN (hypertension) Code(s): I10 - ESSENTIAL (PRIMARY) HYPERTENSION Status: Chronic Qualifiers: Hypertension type: essential hypertension Qualified Code(s): I10 - Essential (primary) hypertension (5) Anticoagulant long-term use Code(s): Z79.01 - [facility] HOME (CURRENT) USE OF ANTICOAGULANTS Status: Acute - Plan UO increased with increased lasix, cont cont rate control of AFib cont anticoag US legs
[2019-09-07] MEDS: Digoxin 0.125 MG TAB PO SCH (08:21)
[2019-09-07] MEDS: Spironolactone 25 MG TAB PO SCH (08:22)
[2019-09-07] MEDS: Apixaban 2.5 MG TAB PO SCH ×2 (08:22→20:31)
[2019-09-07] MEDS: Potassium Chloride 20 MEQ TAB PO SCH (08:22)
--- NOTE | 2019-09-07 11:48 | ULT ---
BILATERAL LOWER EXTREMITY VENOUS DOPPLER ULTRASOUND: Date: 09/07/19 HISTORY: Bilateral lower extremity edema. TECHNIQUE: Kauffman scale ultrasound with color flow and spectral Doppler imaging of the deep venous systems of the lower extremities was performed bilaterally. FINDINGS: There is good flow, compression, and augmentation noted in the common femoral, femoral, deep femoral, popliteal, posterior tibial, and greater saphenous veins on either side. There is an avascular cyst in the left popliteal fossa measuring 4.5 x 3.0 x 6.0 cm, consistent with Pang's cyst. IMPRESSION: 1. No evidence of deep venous thrombosis in either lower extremity. 2. Left Pang's cyst. POS: OFF
[2019-09-07] MEDS ORDERED: Metolazone 5 MG TAB PO SCH (15:30)
--- NOTE | 2019-09-07 16:06 | PRG ---
DATE OF SERVICE: 09/07/2019 SUBJECTIVE: Ms. Lackey is not diuresing well. She is elevating her feet, but this edema seems to got mostly from her lower extremities to the mid thighs and her abdomen. She said she feels miserable. No chest pain. She does have shortness of breath. OBJECTIVE: VITAL SIGNS: Her blood pressure 134/78; pulse 70s, it is irregular. LUNGS: Clear. CARDIAC: Irregularly irregular. ABDOMEN: She has ascites. EXTREMITIES: Severe edema. Screening for deep venous thrombosis was negative. ASSESSMENT: Severe peripheral edema related to right heart failure from chronic obstructive pulmonary disease and chronic atrial fibrillation. PLAN: 1. Give her single dose of metolazone. 2. Further reduce diltiazem. Continue to keep in the hospital for now. Job ID: [id number]
--- NOTE | 2019-09-07 16:52 | EKG ---
Test Reason : SOB Blood Pressure : / mmHG Vent. Rate : 107 BPM Atrial Rate : 326 BPM P-R Int : 000 ms QRS Dur : 064 ms QT Int : 284 ms P-R-T Axes : 000 003 -80 degrees QTc Int : 379 ms Atrial fibrillation with rapid ventricular response with premature ventricular or aberrantly conducte d complexes Low voltage QRS Abnormal ECG Baseline Artifact Present limits further interpretation Confirmed by ROBBY STOVER DO ([id number]), image editor YOKASTA YANCEY ([id number]) on 09/07/2019 4:52:20 PM Referred By: CK Confirmed By:ROBBY STOVER DO
[2019-09-08] MEDS: Acetaminophen/Codeine 30-300mg Tablet PO PRN ×5 (00:06→20:24)
[2019-09-08] MEDS: Ipratropium Bromide 2.5 ml Neb NEB SCH ×5 (01:20→23:04)
[2019-09-08 05:07] LABS: Hemoglobin 13.4 g/dL (12.0-16.0); Platelet Count 295 thou/uL (130-400)
[2019-09-08 05:31] LABS: Anion Gap 13 mmol/L (10-20); BUN (Urea Nitrogen) 22 mg/dL (9.8-20.1); Calc. Creatinine Clearance 56 mL/min (70-130); Calcium 9.3 mg/dL (7.8-10.44); Carbon Dioxide 34 mmol/L (23-31); Chloride 93 mmol/L (98-107); Estimated GFR-MDRD 80; Glucose 79 mg/dL (83-110); Potassium 4.9 mmol/L (3.5-5.1); Sodium 135 mmol/L (136-145)
[2019-09-08 05:41] LABS: Digoxin 0.98 ng/mL (0.8-2.0)
[2019-09-08] MEDS: Furosemide 40 MG/4 ML VIAL SLOW IVP SCH ×2 (06:44→14:33)
--- NOTE | 2019-09-08 07:29 | PDOC.HOSPP ---
- Subjective Encounter Date: 09/08/19 Encounter Time: 07:27 Subjective: cont to have slow diuresis - Objective Vital Signs & Weight: Vital Signs (12 hours) Pulse Resp BP Pulse Ox 09/08/19 06:29 94 L 09/08/19 06:27 104 H 16 94 L 09/08/19 02:04 93 L 09/08/19 01:20 100 16 88 L 09/08/19 00:01 90 78 H 121/61 90 L 09/07/19 19:44 76 16 91 L Weight Weight 126 lb 12.8 oz I&O: 09/07/19 09/08/19 09/09/19 06:59 06:59 06:59 Intake Total 589 900 Output Total 1500 1250 Balance -911 -350 Result Diagrams: 09/08/19 04:46 09/08/19 04:46 Hospitalist ROS - Medication Medications: Active Medications Generic Name Dose Route Start Last Admin Trade Name Freq PRN Reason Stop Dose Admin Acetaminophen 1,000 mg 09/05/19 15:07 09/06/19 00:41 Tylenol PO 1,000 mg Q6H PRN Administration Moderate Pain (4-6) Acetaminophen/Codeine Phosphate 1 tab 09/05/19 15:07 09/08/19 04:51 Tylenol #3 PO 1 tab Q4H PRN Administration Severe Pain (7-10) Apixaban 2.5 mg 09/04/19 21:00 09/07/19 20:31 Eliquis PO 2.5 mg BID NED Administration Digoxin 0.125 mg 09/05/19 09:00 09/07/19 08:21 Lanoxin PO 0.125 mg QAM NED Administration Diphenhydramine HCl 25 mg 09/04/19 20:45 09/04/19 21:32 Benadryl PO 25 mg HS PRN Administration Insomnia Furosemide 40 mg 09/06/19 14:00 09/08/19 06:44 Lasix SLOW IVP 40 mg 0600,1400 NED Administration Ipratropium [place] 2.5 ml 09/04/19 19:00 09/08/19 06:27 Atrovent NEB 2.5 ml [id number] NED Administration Potassium Chloride 20 meq 09/05/19 08:00 09/07/19 08:22 K-Dur PO 20 meq QAM-WM NED Administration Spironolactone 25 mg 10/08/19 08:00 09/07/19 08:22 Aldactone PO 25 mg QAM-WM NED Administration - Exam Neck: no JVD Heart: irregular, murmur present, III/IV Respiratory - other findings: dull right lower lung field Gastrointestinal: soft, normal bowel sounds Extremities: 2+ LE edema Hosp A/P (1) Acute on chronic diastolic CHF (congestive heart failure) Code(s): I50.33 - ACUTE ON CHRONIC DIASTOLIC (CONGESTIVE) HEART FAILURE Status : Acute (2) Acute on chronic respiratory failure with hypoxia Code(s): J96.21 - ACUTE AND CHRONIC RESPIRATORY FAILURE WITH HYPOXIA Status: Acute (3) Atrial fibrillation with rapid ventricular response Code(s): I48.91 - UNSPECIFIED ATRIAL FIBRILLATION Status: Chronic (4) HTN (hypertension) Code(s): I10 - ESSENTIAL (PRIMARY) HYPERTENSION Status: Chronic Qualifiers: Hypertension type: essential hypertension Qualified Code(s): I10 - Essential (primary) hypertension (5) Anticoagulant long-term use Code(s): Z79.01 - [facility] (CURRENT) USE OF ANTICOAGULANTS Status: Acute (6) COPD (chronic obstructive pulmonary disease) Status: Chronic Qualifiers: Emphysema type: unspecified - Plan cardiolology add spirolactone, single dose zaroxlin cont rate control of AFib cont anticoag US legs neg for DVT discuss with caard\ cxr today
--- NOTE | 2019-09-08 08:36 | RAD ---
PORTABLE CHEST 1 VIEW: DATE: 09/08/2019. TIME: 7:54 a.m. HISTORY: Pleural effusion. FINDINGS: Comparison is made with the exam of 09/04/2019. The heart size is stable. The aorta is tortuous. Granulomatous disease is again seen. Moderate-siz ed right pleural effusion with adjacent infiltrate/atelectatic change is again seen. No pneumothorac es are identified. POS: [facility]
[2019-09-08] MEDS ORDERED: acetaZOLAMIDE Sodium 500 MG in Sodium Chloride 0.9% 50 ML IVPB SCH (09:00)
[2019-09-08] MEDS: Digoxin 0.125 MG TAB PO SCH (09:18)
[2019-09-08] MEDS: Spironolactone 25 MG TAB PO SCH (09:19)
[2019-09-08] MEDS: Apixaban 2.5 MG TAB PO SCH ×2 (09:19→20:26)
[2019-09-08] MEDS: Potassium Chloride 20 MEQ TAB PO SCH (09:21)
--- NOTE | 2019-09-08 13:55 | PRG ---
DATE OF SERVICE: 09/08/2019 SUBJECTIVE: Ms. Lackey is doing better today. She really did not put out any significant amount of increased fluid with metolazone and furosemide. She got Diamox this morning with a good response. OBJECTIVE: VITAL SIGNS: Blood pressure 132/84, pulse is in 90 to 100, it is irregular. LUNGS: Clear. CARDIAC: Irregularly irregular. ABDOMEN: Soft and nontender. EXTREMITIES: Still severe edema. PERTINENT LABORATORY DATA: Her CO2 is up to 34 this morning. Metabolic alkalosis. ASSESSMENT: 1. Congestive heart failure, mostly right-sided heart failure due to atrial fibrillation and chronic obstructive pulmonary disease. 2. Metabolic alkalosis. PLAN: Continue Diamox. We will continue to follow with you. Job ID: [id number]
[2019-09-09 04:53] LABS: Anion Gap 10 mmol/L (10-20); BUN (Urea Nitrogen) 22 mg/dL (9.8-20.1); Calc. Creatinine Clearance 61 mL/min (70-130); Calcium 9.2 mg/dL (7.8-10.44); Carbon Dioxide 36 mmol/L (23-31); Chloride 90 mmol/L (98-107); Estimated GFR-MDRD 87; Glucose 72 mg/dL (83-110); Potassium 4.1 mmol/L (3.5-5.1); Sodium 132 mmol/L (136-145)
[2019-09-09] MEDS: Furosemide 40 MG/4 ML VIAL SLOW IVP SCH ×2 (06:16→13:47)
[2019-09-09] MEDS: Acetaminophen/Codeine 30-300mg Tablet PO PRN ×4 (06:20→18:19)
[2019-09-09] MEDS: Ipratropium Bromide 2.5 ml Neb NEB SCH ×3 (07:08→19:00)
[2019-09-09] MEDS: Spironolactone 25 MG TAB PO SCH (09:09)
[2019-09-09] MEDS: Apixaban 2.5 MG TAB PO SCH ×2 (09:09→20:50)
[2019-09-09] MEDS: Potassium Chloride 20 MEQ TAB PO SCH (09:09)
[2019-09-09] MEDS: Digoxin 0.125 MG TAB PO SCH (09:09)
--- NOTE | 2019-09-09 12:34 | PDOC.HOSPP ---
- Subjective Encounter Date: 09/09/19 Encounter Time: 12:30 Subjective: "making lots of pee" - Objective Vital Signs & Weight: Vital Signs (12 hours) Temp Pulse Resp BP Pulse Ox 09/09/19 11:43 97.7 F 107 H 22 H 134/81 92 L 09/09/19 09:09 96.9 F L 90 12 115/74 92 L 09/09/19 07:08 103 H 16 97 09/09/19 04:09 97.4 F L 103 H 18 126/82 92 L Weight Weight 120 lb 12.8 oz I&O: 09/08/19 09/09/19 09/10/19 06:59 06:59 06:59 Intake Total 900 1110 Output Total 1250 4350 1900 Balance -350 -1159 -1908 Result Diagrams: 09/08/19 04:46 09/09/19 03:59 Hospitalist ROS - Medication Medications: Active Medications Generic Name Dose Route Start Last Admin Trade Name Freq PRN Reason Stop Dose Admin Acetaminophen 1,000 mg 09/05/19 15:07 09/06/19 00:41 Tylenol PO 1,000 mg Q6H PRN Administration Moderate Pain (4-6) Acetaminophen/Codeine Phosphate 1 tab 09/05/19 15:07 09/09/19 10:41 Tylenol #3 PO 1 tab Q4H PRN Administration Severe Pain (7-10) Apixaban 2.5 mg 09/04/19 21:00 09/09/19 09:09 Eliquis PO 2.5 mg BID NED Administration Digoxin 0.125 mg 09/05/19 09:00 09/09/19 09:09 Lanoxin PO 0.125 mg QAM NED Administration Diltiazem HCl 180 mg 09/08/19 09:00 09/09/19 09:09 Cardizem Cd PO 180 mg DAILY NED Administration Diphenhydramine HCl 25 mg 09/04/19 20:45 09/04/19 21:32 Benadryl PO 25 mg HS PRN Administration Insomnia Furosemide 40 mg 09/06/19 14:00 09/09/19 06:16 Lasix SLOW IVP 40 mg 0600,1400 NED Administration Ipratropium [place] 2.5 ml 09/04/19 19:00 09/09/19 07:08 Atrovent NEB 2.5 ml [id number] NED Administration Potassium Chloride 20 meq 09/05/19 08:00 09/09/19 09:09 K-Dur PO 20 meq QAM-WM NED Administration Sodium Chloride 10 ml 09/08/19 21:00 09/09/19 09:10 Flush - Normal Saline IVF 10 ml Q12HR NED Administration Sodium Chloride 10 ml 09/08/19 14:16 09/09/19 06:16 Flush - Normal Saline IVF 10 ml PRN PRN Administration Saline Flush Spironolactone 25 mg 09/07/19 08:00 09/09/19 09:09 Aldactone PO 25 mg QAM-WM NED Administration - Exam Neck: no JVD Heart: irregular, murmur present, III/IV Respiratory - other findings: dull R base Gastrointestinal: soft, non-tender, normal bowel sounds Extremities - other findings: 3+ edema Hosp A/P (1) Acute on chronic diastolic CHF (congestive heart failure) Code(s): I50.33 - ACUTE ON CHRONIC DIASTOLIC (CONGESTIVE) HEART FAILURE Status : Acute (2) Acute on chronic respiratory failure with hypoxia Code(s): J96.21 - ACUTE AND CHRONIC RESPIRATORY FAILURE WITH HYPOXIA Status: Acute (3) Atrial fibrillation with rapid ventricular response Code(s): I48.91 - UNSPECIFIED ATRIAL FIBRILLATION Status: Chronic (4) HTN (hypertension) Code(s): I10 - ESSENTIAL (PRIMARY) HYPERTENSION Status: Chronic Qualifiers: Hypertension type: essential hypertension Qualified Code(s): I10 - Essential (primary) hypertension (5) Anticoagulant long-term use Code(s): Z79.01 - [facility] (CURRENT) USE OF ANTICOAGULANTS Status: Acute (6) COPD (chronic obstructive pulmonary disease) Status: Chronic Qualifiers: Emphysema type: unspecified - Plan eror on yesterdays nte- cardiology started iv diamox, not zaroxylin cont iv lasix, cont anticoaulanmonitor weight, BMP will need several more days diuresis
[2019-09-09] MEDS: acetaZOLAMIDE Sodium 500 MG in Sodium Chloride 0.9% 50 ML IVPB SCH (18:19)
--- NOTE | 2019-09-09 18:50 | PRG ---
DATE OF SERVICE: SUBJECTIVE: Ms. Lackey is doing much better today. She had a really good diuresis for the first time really. OBJECTIVE: VITAL SIGNS: Her blood pressure 118/72, pulse 80. LUNGS: Clear. CARDIAC: Irregularly irregular. ABDOMEN: Soft, nontender. EXTREMITIES: Reduced edema. She put out 4 L of urine, this is really the first time that has happened. ASSESSMENT: 1. Diastolic right-sided heart failure with volume status improved. 2. Remains with a metabolic alkalosis. PLAN: 1. Continue furosemide and spironolactone as well as Diamox. I think the Diamox is really helping her. 2. Recheck lab tomorrow. Job ID: [id number]
[2019-09-10] MEDS: Ipratropium Bromide 2.5 ml Neb NEB SCH ×4 (01:00→19:18)
[2019-09-10 06:34] LABS: Anion Gap 10 mmol/L (10-20); BUN (Urea Nitrogen) 22 mg/dL (9.8-20.1); Calc. Creatinine Clearance 54 mL/min (70-130); Calcium 9.4 mg/dL (7.8-10.44); Carbon Dioxide 36 mmol/L (23-31); Chloride 90 mmol/L (98-107); Estimated GFR-MDRD 80; Glucose 79 mg/dL (83-110); Potassium 3.9 mmol/L (3.5-5.1); Sodium 132 mmol/L (136-145)
[2019-09-10] MEDS: Furosemide 40 MG/4 ML VIAL SLOW IVP SCH ×2 (07:02→14:05)
[2019-09-10] MEDS: Spironolactone 25 MG TAB PO SCH (08:22)
[2019-09-10] MEDS: Apixaban 2.5 MG TAB PO SCH ×2 (08:22→21:49)
[2019-09-10] MEDS: Digoxin 0.125 MG TAB PO SCH (08:23)
[2019-09-10] MEDS: Potassium Chloride 20 MEQ TAB PO SCH (08:23)
[2019-09-10] MEDS: Acetaminophen/Codeine 30-300mg Tablet PO PRN ×3 (08:25→21:49)
[2019-09-10 08:37] LABS: ALT (SGPT) Less than 7 U/L (8-55); AST (SGOT) 11 U/L (5-34); Albumin 3.3 g/dL (3.4-4.8); Alkaline Phosphatase 79 U/L (40-110); Bilirubin, Direct 0.6 mg/dL (0.1-0.3); Bilirubin, Total 0.9 mg/dL (0.2-1.2); Magnesium 1.7 mg/dL (1.6-2.6); Protein, Total 6.8 g/dL (6.0-8.3)
[2019-09-10] MEDS ORDERED: Magnesium 2 GM/50 ML 2 GM in Premix Bag 1 BAG IVPB SCH (10:30)
--- NOTE | 2019-09-10 10:33 | PDOC.HOSPP ---
- Subjective Encounter Date: 09/10/19 Encounter Time: 10:31 Subjective: 84 y/o female with A fib, HTN, COPD aqnd CHF admitted with worsening SOB and leg edema. Feeling better with diuretics.No fever or diarrhea. - Objective Vital Signs & Weight: Vital Signs (12 hours) Temp Pulse Resp BP Pulse Ox 09/10/19 08:23 120 H 09/10/19 07:56 98.1 F 108 H 20 125/75 92 L 09/10/19 04:13 96 09/10/19 04:00 98.2 F 93 18 125/80 97 Weight Weight 120 lb 12.8 oz I&O: 09/09/19 09/10/19 09/11/19 06:59 06:59 06:59 Intake Total 1110 1585 Output Total 4350 2700 Balance -3240 -1115 Result Diagrams: 09/08/19 04:46 09/10/19 05:24 Hospitalist ROS - Medication Medications: Active Medications Generic Name Dose Route Start Last Admin Trade Name Freq PRN Reason Stop Dose Admin Acetaminophen 1,000 mg 09/05/19 15:07 09/06/19 00:41 Tylenol PO 1,000 mg Q6H PRN Administration Moderate Pain (4-6) Acetaminophen/Codeine Phosphate 1 tab 09/05/19 15:07 09/10/19 08:25 Tylenol #3 PO 1 tab Q4H PRN Administration Severe Pain (7-10) Apixaban 2.5 mg 09/04/19 21:00 09/10/19 08:22 Eliquis PO 2.5 mg BID NED Administration Digoxin 0.125 mg 09/05/19 09:00 09/10/19 08:23 Lanoxin PO 0.125 mg QAM NED Administration Diltiazem HCl 180 mg 09/08/19 09:00 09/10/19 08:24 Cardizem Cd PO 180 mg DAILY NED Administration Diphenhydramine HCl 25 mg 09/04/19 20:45 09/04/19 21:32 Benadryl PO 25 mg HS PRN Administration Insomnia Furosemide 40 mg 09/06/19 14:00 09/10/19 07:02 Lasix SLOW IVP 40 mg 0600,1400 NED Administration Acetazolamide Sodium 500 mg/ 50 mls @ 100 mls/hr 09/09/19 18:00 09/09/19 18: 19 Sodium Chloride IVPB 50 mls 1800 NED Administration Ipratropium [place] 2.5 ml 09/04/19 19:00 09/10/19 07:49 Atrovent NEB Not Given [id number] NED Potassium Chloride 20 meq 09/05/19 08:00 09/10/19 08:23 K-Dur PO 20 meq QAM-WM NED Administration Sodium Chloride 10 ml 09/08/19 21:00 09/10/19 08:24 Flush - Normal Saline IVF 10 ml Q12HR NED Administration Sodium Chloride 10 ml 09/08/19 14:16 09/09/19 06:16 Flush - Normal Saline IVF 10 ml PRN PRN Administration Saline Flush Spironolactone 25 mg 09/07/19 08:00 09/10/19 08:22 Aldactone PO 25 mg QAM-WM NED Administration - Exam General Appearance: awake alert General - other findings: cachetic ENT: normocephalic atraumatic Neck: no JVD Heart: irregular Heart - other findings: tachycardic Respiratory - other findings: fair air entry bilateraally Gastrointestinal: soft, non-tender, non-distended, normal bowel sounds Extremities - other findings: marked edema of lower extremities R>L, upper extremities are thin Neurological: cranial nerve grossly intact, no focal deficits Hosp A/P (1) Acute on chronic respiratory failure with hypoxia Code(s): J96.21 - ACUTE AND CHRONIC RESPIRATORY FAILURE WITH HYPOXIA Status: Acute (2) Acute on chronic diastolic CHF (congestive heart failure) Code(s): I50.33 - ACUTE ON CHRONIC DIASTOLIC (CONGESTIVE) HEART FAILURE Status : Acute (3) Wide-complex tachycardia Code(s): I47.2 - VENTRICULAR TACHYCARDIA Status: Acute (4) Hyponatremia Code(s): E87.1 - HYPO-OSMOLALITY AND HYPONATREMIA Status: Acute (5) Metabolic alkalosis Code(s): E87.3 - ALKALOSIS Status: Acute (6) Severe tricuspid regurgitation Code(s): I07.1 - RHEUMATIC TRICUSPID INSUFFICIENCY Status: Acute (7) Moderate to severe pulmonary hypertension Code(s): I27.20 - PULMONARY HYPERTENSION, UNSPECIFIED Status: Acute (8) Moderate aortic regurgitation Code(s): I35.1 - NONRHEUMATIC AORTIC (VALVE) INSUFFICIENCY Status: Acute (9) Recurrent right pleural effusion Code(s): J90 - PLEURAL EFFUSION, NOT ELSEWHERE CLASSIFIED Status: Acute (10) Anticoagulant long-term use Code(s): Z79.01 - CONVERTIBLE TOP INSTALLER (CURRENT) USE OF ANTICOAGULANTS Status: Acute (11) Atrial fibrillation with rapid ventricular response Code(s): I48.91 - UNSPECIFIED ATRIAL FIBRILLATION Status: Chronic (12) HTN (hypertension) Code(s): I10 - ESSENTIAL (PRIMARY) HYPERTENSION Status: Chronic Qualifiers: Hypertension type: essential hypertension Qualified Code(s): I10 - Essential (primary) hypertension (13) Tobacco abuse Code(s): Z72.0 - TOBACCO USE Status: Chronic (14) Cachexia associated with cardiac disease Code(s): I51.9 - HEART DISEASE, UNSPECIFIED Status: Acute - Plan Continue diuretics. Give IV magnesium sulphate 2 gram to get serum magnesium above 2 given V tach Start oral supplementation PT to continue.
[2019-09-10] MEDS: acetaZOLAMIDE Sodium 500 MG in Sodium Chloride 0.9% 50 ML IVPB SCH (17:06)
[2019-09-11] MEDS: Ipratropium Bromide 2.5 ml Neb NEB SCH ×5 (00:03→23:02)
[2019-09-11 05:28] LABS: Albumin 3.6 g/dL (3.4-4.8); Anion Gap 12 mmol/L (10-20); BUN (Urea Nitrogen) 24 mg/dL (9.8-20.1); BUN/Creatinine Ratio 30.77; Calc. Creatinine Clearance 46 mL/min (70-130); Calcium 9.4 mg/dL (7.8-10.44); Carbon Dioxide 34 mmol/L (23-31); Chloride 89 mmol/L (98-107); Estimated GFR-MDRD 71; Glucose 80 mg/dL (83-110); Phosphorus 3.7 mg/dL (2.3-4.7); Potassium 4.1 mmol/L (3.5-5.1); Sodium 131 mmol/L (136-145)
[2019-09-11] MEDS: Furosemide 40 MG/4 ML VIAL SLOW IVP SCH ×2 (06:06→15:08)
[2019-09-11] MEDS: Apixaban 2.5 MG TAB PO SCH ×2 (09:44→20:50)
[2019-09-11] MEDS: Spironolactone 25 MG TAB PO SCH (09:44)
[2019-09-11] MEDS: Potassium Chloride 20 MEQ TAB PO SCH (09:44)
[2019-09-11] MEDS: Digoxin 0.125 MG TAB PO SCH (09:44)
[2019-09-11] MEDS: Acetaminophen/Codeine 30-300mg Tablet PO PRN ×3 (10:02→19:45)
--- NOTE | 2019-09-11 17:22 | RAD ---
Exam: Chest one view portable: HISTORY: Follow-up pleural effusion, pulmonary edema, persistent hypoxia COMPARISON: 09/08/2019 FINDINGS: Persistent moderate size right pleural effusion but showing some decrease in size from the prior stud y. Old granulomatous disease. Very extensive atherosclerotic ectatic changes of the aorta. Stable appearing left chest and minimal cardiomegaly. Severe bony demineralization. IMPRESSION: Persistent but slightly decreasing right pleural effusion. Old granulomatous disease. Atherosclerosis of the aorta with ectasia. Other findings as above.
[2019-09-11] MEDS: acetaZOLAMIDE Sodium 500 MG in Sodium Chloride 0.9% 50 ML IVPB SCH (18:36)
--- NOTE | 2019-09-11 21:39 | PDOC.HOSPP ---
- Subjective Encounter Date: 09/11/19 Encounter Time: 21:20 non-verbal Subjective: Patient states she still feels short of breath on exertion and still has presacral edema because her inner thighs look floppy. Denies chest pain. She is interested in rehab. She is requesting tylenol 3 to help her sleep due to severe arthritis which is worsened by all the IVS in her arms. Reports having cervical laminectomy in the past. - Objective Vital Signs & Weight: Vital Signs (12 hours) Temp Pulse Resp BP Pulse Ox 09/11/19 20:00 97.4 F L 100 15 127/64 90 L 09/11/19 17:51 83 20 96 09/11/19 15:50 98 F 91 18 115/67 94 L 09/11/19 14:41 93 L 09/11/19 12:43 89 20 93 L 09/11/19 11:55 97.5 F L 91 18 119/66 95 09/11/19 09:44 98 Weight Weight 111 lb 6.4 oz I&O: 09/10/19 09/11/19 09/12/19 06:59 06:59 06:59 Intake Total 1585 834 680 Output Total 2700 5 1475 Balance -1115 -1191 -795 Result Diagrams: 09/08/19 04:46 09/11/19 04:34 Hospitalist ROS - Review of Systems Constitutional: denies: chills, sweats Eyes: denies: vision change ENT: denies: ear discharge Respiratory: denies: dry Cardiovascular: denies: chest pain, palpitations - Medication Medications: Active Medications Generic Name Dose Route Start Last Admin Trade Name [place] PRN Reason Stop Dose Admin Acetaminophen 1,000 mg 09/05/19 15:07 09/06/19 00:41 Tylenol PO 1,000 mg Q6H PRN Administration Moderate Pain (4-6) Acetaminophen/Codeine Phosphate 1 tab 09/05/19 15:07 09/11/19 19:45 Tylenol #3 PO 1 tab Q4H PRN Administration Severe Pain (7-10) Apixaban 2.5 mg 09/04/19 21:00 09/11/19 20:50 Eliquis PO 2.5 mg BID NDE Administration Digoxin 0.125 mg 09/05/19 09:00 09/11/19 09:44 Lanoxin PO 0.125 mg QAM NED Administration Diltiazem HCl 180 mg 09/08/19 09:00 09/11/19 09:44 Cardizem Cd PO 180 mg DAILY NED Administration Diphenhydramine HCl 25 mg 09/04/19 20:45 09/04/19 21:32 Benadryl PO 25 mg HS PRN Administration Insomnia Furosemide 40 mg 09/06/19 14:00 09/11/19 15:08 Lasix SLOW IVP 40 mg 0600,1400 NED Administration Acetazolamide Sodium 500 mg/ 50 mls @ 100 mls/hr 09/09/19 18:00 09/11/19 18: 36 Sodium Chloride IVPB 50 mls 1800 NED Administration Ipratropium [place] 2.5 ml 09/04/19 19:00 09/11/19 17:51 Atrovent NEB 2.5 ml [id number] NED Administration Melatonin 3 mg 09/04/19 20:45 09/11/19 20:50 Melatonin PO 3 mg HSPRN PRN Administration Insomnia Potassium Chloride 20 meq 09/05/19 08:00 09/11/19 09:44 K-Dur PO 20 meq QAM-WM NED Administration Sodium Chloride 10 ml 09/08/19 21:00 09/11/19 20:50 Flush - Normal Saline IVF 10 ml Q12HR NED Administration Sodium Chloride 10 ml 09/08/19 14:16 09/09/19 06:16 Flush - Normal Saline IVF 10 ml PRN PRN Administration Saline Flush Spironolactone 25 mg 09/07/19 08:00 09/11/19 09:44 Aldactone PO 25 mg QAM-WM NED Administration - Exam General - other findings: Very cachectic appearing Eye: PERRL, anicteric sclera ENT: normocephalic atraumatic Neck: supple, symmetric, no JVD Heart: RRR, no murmur, no gallops Respiratory: CTAB, no wheezes, no rales Gastrointestinal: soft, non-tender, non-distended Extremities: no cyanosis, no clubbing Extremities - other findings: presacral edema noted Skin: normal turgor Neurological: cranial nerve grossly intact, normal sensation to touch Musculoskeletal: normal tone, normal strength, no muscle wasting Psychiatric: normal affect, normal behavior, A&O x 3, oriented to person Hosp A/P - Plan Chest X ray 02/04: moderately large right pleural effusion and minimal densities at left lung base consistent with atelectasis vs pneumonitis Chest X ray: persistently decreasing right pleural effusion This is an 84 year old female with past medical history of afib, hypertension, COPD, CHF admitted with CHF exacerbation. Chest X ray shows persistent right pleural effusion CHF exacerbation - patient was started on IV lasix bid, diamox started due to contraction alkalosis which willl continue Rigiht pleural effusion with possible pneumonitis - s lightly decreased in size, will consult pulmonary for possible thoracentesis since still large in size - will trial augmentin to see if it helps her cough and shortness of breath since no significant improvement with lasix Hyponatremia - sodium 131, possibly from lasix or pleural effusion Atrial fibrillation - eliquis, digoxin and diltiazem Code status: full code
[2019-09-11] MEDS ORDERED: Amoxicillin/Potassium Clav 875 MG TAB PO SCH (21:45)
[2019-09-12] MEDS: Furosemide 40 MG/4 ML VIAL SLOW IVP SCH ×2 (05:36→14:40)
[2019-09-12] MEDS: Acetaminophen/Codeine 30-300mg Tablet PO PRN ×4 (05:36→22:01)
[2019-09-12] MEDS: Ipratropium Bromide 2.5 ml Neb NEB SCH ×3 (07:35→20:04)
[2019-09-12 09:37] LABS: Hemoglobin 14.6 g/dL (12.0-16.0); Mean Corpuscular HGB CONC 33.5 g/dL (32.0-36.0); Mean Corpuscular Hemoglobin 32.7 pg (27.0-31.0); Mean Corpuscular Volume 97.7 fL (78.0-98.0); Mean Platelet Volume 7.6 fL (7.4-10.4); Platelet Count 270 thou/uL (130-400); RBC Distribution Width 15.7 % (11.5-14.5); Red Blood Cell (RBC) Count 4.46 mill/uL (4.20-5.40); White Blood Cell (WBC) Count 6.7 thou/uL (4.8-10.8)
[2019-09-12 09:38] LABS: INR-International Normal Ratio 1.2
[2019-09-12 09:52] LABS: Anion Gap 12 mmol/L (10-20); BUN (Urea Nitrogen) 24 mg/dL (9.8-20.1); Calc. Creatinine Clearance 43 mL/min (70-130); Calcium 9.7 mg/dL (7.8-10.44); Carbon Dioxide 36 mmol/L (23-31); Chloride 90 mmol/L (98-107); Estimated GFR-MDRD 69; Glucose 92 mg/dL (83-110); Potassium 3.9 mmol/L (3.5-5.1); Sodium 134 mmol/L (136-145)
[2019-09-12] MEDS: Digoxin 0.125 MG TAB PO SCH (09:54)
[2019-09-12] MEDS: Apixaban 2.5 MG TAB PO SCH ×2 (09:56→22:02)
[2019-09-12] MEDS: Spironolactone 25 MG TAB PO SCH (09:56)
[2019-09-12] MEDS: Amoxicillin/Potassium Clav 875 MG TAB PO SCH ×2 (09:56→22:01)
[2019-09-12] MEDS: Potassium Chloride 20 MEQ TAB PO SCH (09:57)
--- NOTE | 2019-09-12 16:35 | PRG ---
DATE OF SERVICE: 09/12/2019 SUBJECTIVE: Ms. Lackey is doing very well. She continues to diurese very well. No chest pain. Shortness of breath is improved. OBJECTIVE: VITAL SIGNS: Blood pressure 122/72 and pulse 90, it is irregular. LUNGS: Clear. CARDIAC: Irregularly irregular. ABDOMEN: Soft and nontender. EXTREMITIES: Very little edema dramatically improved. Of note, her weight is down 103 pounds, on the 9th, it was 126, and she was actually 136 on the 7th. ASSESSMENT AND PLAN: 1. Diastolic heart failure secondary to atrial fibrillation and chronic obstructive pulmonary disease with right-sided heart failure. 2. Dramatic response to furosemide, spironolactone plus Diamox. I think the Diamox had a lot to do with the diuresis plan stop Diamox. Currently, she does not look volume overloaded anymore. 3. Got oral furosemide. 4. Oral spironolactone. 5. Potassium. 6. She should be ready to go tomorrow on apixaban 2.5 mg twice a day and digoxin and diltiazem at the current doses. Okay to me to be released home tomorrow morning. Job ID: [id number]
--- NOTE | 2019-09-12 18:10 | PRG ---
DATE OF SERVICE: 09/12/2019 SERVICE: Pulmonary medicine. INTERVAL HISTORY: The patient indicates that she is breathing well. She denies any current fevers or chills. There is no cough or sputum production. She is not bringing up any yellow-green phlegm. Otherwise, she is in her usual state of health. What she would like to do is to leave the hospital with "a gallon of Baileys and a cigarette." That being said, she is looking forward to moving to a facility where she can pursue strengthening. PHYSICAL EXAMINATION: VITAL SIGNS: Afebrile, pulse 81, blood pressure 116/72, respirations 20, saturation 92%, on 2 L nasal cannula. GENERAL: The patient is awake and alert, in no apparent distress. LUNGS: Good air entry on the left. There is a slightly prolonged expiratory phase. There is a very coarse wheeze that clears with cough. The right side has decreased air entry at the base. There is dullness to percussion. HEART: Normal rate. Irregular. ABDOMEN: Soft, nontender, nondistended. Bowel sounds are positive. MUSCULOSKELETAL: No cyanosis or clubbing. There is no pitting in the bilateral lower extremities. It was actually signs to suggest she has had significant reduction in lower extremity swelling. : No Brown. LABORATORY DATA: WBC 6.7, hemoglobin 14.6, platelets 270,000. INR 1.2. Sodium 134, chloride 90. Bicarbonate 36. Basic metabolic profile is otherwise unremarkable. IMAGING DATA: Chest x-ray shows a persistent right-sided pleural effusion, which is likely moderate in size. That being said, it has improved slightly compared to prior. Actually she has well demonstrated mediastinal calcifications, likely representing lymph nodes. Tortuous aorta is noted. ASSESSMENT: 1. Acute on chronic hypoxic respiratory failure. 2. Right-sided pleural effusion, previously a transudate. 3. Acute on chronic diastolic heart failure, resolved to baseline. 4. Atrial fibrillation, permanent. 5. Chronic obstructive pulmonary disease without current exacerbation. DISCUSSION AND PLAN: The patient is doing fine from respiratory standpoint. We may need to set up oxygen in the outpatient setting, so that she does not desaturate when she mobilizes. Thoracentesis could be considered if she had severe hypoxemia and dyspnea that limited her activity, which was refractory to nasal cannula, or if we think there is an infection in this space. At this point, however, the effusion seems to be getting slightly smaller. Please repeat chest x-ray in 2 to 3 weeks in the outpatient setting. If the effusion increases in size, additional procedures could be considered. Please call with additional questions or concerns through time. Job ID: [id number] MTDD
--- NOTE | 2019-09-12 18:13 | PDOC.HOSPP ---
- Subjective Encounter Date: 09/12/19 Encounter Time: 14:00 Subjective: The patient continues to feel short of breath on exertion and cough up some phlegm. She desaturates to 87% with ambulation per nursing staff. Supposed to be on oxygen but keeps pulling it off. She denies chest pain. Pulm consulted for thoracentesis, recommended outpatient consideration since she has had transudate in the past. - Objective Vital Signs & Weight: Vital Signs (12 hours) Temp Pulse Resp BP Pulse Ox 09/12/19 15:55 97.4 F L 81 20 116/72 92 L 09/12/19 14:05 86 18 96 09/12/19 11:22 97.4 F L 98 20 122/72 95 09/12/19 09:54 95 09/12/19 08:05 98 09/12/19 08:00 97.6 F 93 20 128/78 98 09/12/19 07:37 97 09/12/19 07:35 109 H 20 97 Weight Weight 103 lb 8 oz I&O: 09/11/19 09/12/19 09/13/19 06:59 06:59 06:59 Intake Total 834 1160 480 Output Total 2024 3619 8101 Balance -5495 -5899 -9067 Result Diagrams: 09/12/19 09:19 09/12/19 09:19 Hospitalist ROS - Review of Systems Constitutional: denies: chills Eyes: denies: vision change ENT: denies: ear discharge - Medication Medications: Active Medications Generic Name Dose Route Start Last Admin Trade Name Freq PRN Reason Stop Dose Admin Acetaminophen 1,000 mg 09/05/19 15:07 09/06/19 00:41 Tylenol PO 1,000 mg Q6H PRN Administration Moderate Pain (4-6) Acetaminophen/Codeine Phosphate 1 tab 09/05/19 15:07 09/12/19 14:38 Tylenol #3 PO 1 tab Q4H PRN Administration Severe Pain (7-10) Amoxicillin/Clavulanate Potassium 875 mg 09/12/19 09:00 09/12/19 09:56 Augmentin PO 875 mg BID NED Administration Apixaban 2.5 mg 09/04/19 21:00 09/12/19 09:56 Eliquis PO 2.5 mg BID NED Administration Digoxin 0.125 mg 09/05/19 09:00 09/12/19 09:54 Lanoxin PO 0.125 mg QAM NED Administration Diltiazem HCl 180 mg 09/08/19 09:00 09/12/19 09:56 Cardizem Cd PO 180 mg DAILY NED Administration Diphenhydramine HCl 25 mg 09/04/19 20:45 09/04/19 21:32 Benadryl PO 25 mg HS PRN Administration Insomnia Ipratropium [place] 2.5 ml 09/04/19 19:00 09/12/19 14:05 Atrovent NEB 2.5 ml [id number] NED Administration Melatonin 3 mg 09/04/19 20:45 09/11/19 20:50 Melatonin PO 3 mg HSPRN PRN Administration Insomnia Potassium Chloride 20 meq 09/05/19 08:00 09/12/19 09:57 K-Dur PO 20 meq QAM-WM NED Administration Sodium Chloride 10 ml 09/08/19 21:00 09/12/19 10:04 Flush - Normal Saline IVF 10 ml Q12HR NED Administration Sodium Chloride 10 ml 09/08/19 14:16 09/09/19 06:16 Flush - Normal Saline IVF 10 ml PRN PRN Administration Saline Flush Spironolactone 25 mg 09/07/19 08:00 09/12/19 09:56 Aldactone PO 25 mg QAM-WM NED Administration - Exam Eye: PERRL, anicteric sclera ENT: normocephalic atraumatic, no oropharyngeal lesions Neck: supple, no JVD Heart: RRR, no murmur, no gallops, no rubs Respiratory: CTAB, no wheezes, no ronchi Respiratory - other findings: decreased breath sounds on the right Gastrointestinal: soft, non-tender, non-distended Extremities: no cyanosis, no clubbing, no edema Skin: normal turgor, no lesions, no rashes Neurological: cranial nerve grossly intact, normal sensation to touch, no focal deficits, no new deficit Musculoskeletal: normal tone, normal strength, no muscle wasting Hosp A/P - Plan Chest X ray 02/04: moderately large right pleural effusion and minimal densities at left lung base consistent with atelectasis vs pneumonitis Chest X ray: persistently decreasing right pleural effusion This is an 84 year old female with past medical history of afib, hypertension, COPD, CHF admitted with CHF exacerbation. Chest X ray shows persistent right pleural effusion Acute hypoxic respiratory failure secondary to acute diastolic CHF exacerbation with moderate MR, severe TR and moderate aortic regurgitation - patient was started on IV lasix bid, diamox started due to contraction alkalosis which willl continue - repeat chest X ray shows decrease in right pleural effusion. - will switch to oral lasix - will need oxygen on discharge, home oxygen evalu to be done Right pleural effusion with possible pneumonitis - slightly decreased in size, pulmonary consulted and recommended no thoracentesis since previous ones have been transudate - continue augmentin day 2 - will trial augmentin to see if it helps her cough and shortness of breath since no significant improvement with lasix Hyponatremia - sodium improved to 134, d/c IV lasix and switch to oral Atrial fibrillation - eliquis, digoxin and diltiazem Contraction alkalosis - d/c lasix Dispo: likely needs rehab but patient refusin g Code status: full code
[2019-09-13] MEDS: Ipratropium Bromide 2.5 ml Neb NEB SCH ×4 (01:38→19:07)
[2019-09-13] MEDS: Acetaminophen/Codeine 30-300mg Tablet PO PRN ×4 (02:05→20:51)
[2019-09-13 06:05] LABS: Anion Gap 15 mmol/L (10-20); BUN (Urea Nitrogen) 21 mg/dL (9.8-20.1); Calc. Creatinine Clearance 44 mL/min (70-130); Calcium 9.5 mg/dL (7.8-10.44); Carbon Dioxide 30 mmol/L (23-31); Chloride 92 mmol/L (98-107); Estimated GFR-MDRD 76; Glucose 90 mg/dL (83-110); Magnesium 1.8 mg/dL (1.6-2.6); Potassium 4.1 mmol/L (3.5-5.1); Sodium 133 mmol/L (136-145)
[2019-09-13] MEDS: Torsemide 20 MG TAB PO SCH (09:14)
[2019-09-13] MEDS: Digoxin 0.125 MG TAB PO SCH (09:16)
[2019-09-13] MEDS: Potassium Chloride 20 MEQ TAB PO SCH (09:17)
[2019-09-13] MEDS: Amoxicillin/Potassium Clav 875 MG TAB PO SCH ×2 (09:17→20:51)
[2019-09-13] MEDS: Spironolactone 25 MG TAB PO SCH (09:17)
[2019-09-13] MEDS: Apixaban 2.5 MG TAB PO SCH ×2 (09:17→20:51)
[2019-09-13] MEDS ORDERED: ALPRAZolam 0.25 MG TAB PO PRN (15:27)
--- NOTE | 2019-09-13 15:29 | PDOC.HOSPP ---
- Subjective Encounter Date: 09/13/19 Encounter Time: 15:28 Subjective: Patient feels about the same. At rest she dropped to 81% on room air and improved to 95% with 2L oxygen. She denies chest pain or shortness of breath Last night patient was confused and was seeing bugs on the wall and daughter reports that she was extremely agitated. She does not take tylenol 3 at home but demanding it here around the clock. Patient refuses to have her IV taken out. - Objective Vital Signs & Weight: Vital Signs (12 hours) Temp Pulse Resp BP Pulse Ox 09/13/19 13:32 91 16 09/13/19 11:39 98.2 F 88 20 123/74 97 09/13/19 09:30 95 09/13/19 09:16 91 09/13/19 08:00 97.6 F 91 18 131/76 95 09/13/19 06:35 90 15 09/13/19 03:32 97.5 F L 87 20 106/59 L 92 L Weight Weight 98 lb 6.4 oz I&O: 09/12/19 09/13/19 09/14/19 06:59 06:59 06:59 Intake Total 1160 830 Output Total 2975 3100 Balance -1815 -2270 Result Diagrams: 09/12/19 09:19 09/13/19 04:35 Hospitalist ROS - Review of Systems Constitutional: denies: chills, sweats - Medication Medications: Active Medications Generic Name Dose Route Start Last Admin Trade Name Freq PRN Reason Stop Dose Admin Acetaminophen 1,000 mg 09/05/19 15:07 09/06/19 00:41 Tylenol PO 1,000 mg Q6H PRN Administration Moderate Pain (4-6) Acetaminophen/Codeine Phosphate 1 tab 09/05/19 15:07 09/13/19 13:27 Tylenol #3 PO 1 tab Q4H PRN Administration Severe Pain (7-10) Amoxicillin/Clavulanate Potassium 875 mg 09/12/19 09:00 09/13/19 09:17 Augmentin PO 875 mg BID NED Administration Apixaban 2.5 mg 09/04/19 21:00 09/13/19 09:17 Eliquis PO 2.5 mg BID NED Administration Digoxin 0.125 mg 09/05/19 09:00 09/13/19 09:16 Lanoxin PO 0.125 mg QAM NED Administration Diltiazem HCl 180 mg 09/08/19 09:00 09/13/19 09:14 Cardizem Cd PO 180 mg DAILY NED Administration Diphenhydramine HCl 25 mg 09/04/19 20:45 09/04/19 21:32 Benadryl PO 25 mg HS PRN Administration Insomnia Ipratropium [place] 2.5 ml 09/04/19 19:00 09/13/19 13:32 Atrovent NEB 2.5 ml [id number] NED Administration Melatonin 3 mg 09/04/19 20:45 09/11/19 20:50 Melatonin PO 3 mg HSPRN PRN Administration Insomnia Potassium Chloride 20 meq 09/05/19 08:00 09/13/19 09:17 K-Dur PO 20 meq QAM-WM NED Administration Sodium Chloride 10 ml 09/08/19 21:00 09/13/19 09:17 Flush - Normal Saline IVF 10 ml Q12HR NED Administration Sodium Chloride 10 ml 09/08/19 14:16 09/09/19 06:16 Flush - Normal Saline IVF 10 ml PRN PRN Administration Saline Flush Spironolactone 25 mg 09/07/19 08:00 09/13/19 09:17 Aldactone PO 25 mg QAM-WM NED Administration Torsemide 40 mg 09/13/19 09:00 09/13/19 09:14 Demadex PO 40 mg DAILY NED Administration - Exam General Appearance: NAD, awake alert, ill appearing General - other findings: cachexic Eye: PERRL, anicteric sclera ENT: normocephalic atraumatic, no oropharyngeal lesions Neck: supple, symmetric, no JVD, no thyromegaly Heart: RRR, no murmur, no gallops, no rubs Respiratory: CTAB, no wheezes, no rales, no ronchi Gastrointestinal: soft, non-tender, non-distended, normal bowel sounds Extremities: no cyanosis, no clubbing, no edema Skin: normal turgor, no lesions, no rashes Neurological: cranial nerve grossly intact, normal sensation to touch, no focal deficits, no new deficit Musculoskeletal: normal tone, normal strength, no muscle wasting Psychiatric: normal affect, normal behavior, A&O x 3, oriented to person, oriented to place, oriented to time Hosp A/P - Plan Chest X ray 02/04: moderately large right pleural effusion and minimal densities at left lung base consistent with atelectasis vs pneumonitis Chest X ray: persistently decreasing right pleural effusion This is an 84 year old female with past medical history of afib, hypertension, COPD, CHF admitted with CHF exacerbation. Chest X ray shows persistent right pleural effusion, she has been diuresed optimally, pending d/c Acute hypoxic respiratory failure secondary to acute diastolic CHF exacerbation with moderate MR, severe TR and moderate aortic regurgitation - patient was diuresed with IV lasix then diamox was added due to alkalosis, discontinued 09/12. Cardiology was following. Switched to torsemide po today. - patient will need 2L oxygen at rest, pending evaluation for O2 on exertion Agitation - add seroquel bid prn - xanax prn for anxiety Right pleural effusion with possible pneumonitis - slightly decreased in size, pulmonary consulted and recommended no thoracentesis since previous ones have been transudate - continue augmentin day 3 Hyponatremia -133, stable Atrial fibrillation - eliquis, digoxin and diltiazem Contraction alkalosis - resolved Arthritis - continue tylenol 3 Dispo: d/c to [facility] tomorrow Diet: heart healthy diet Code status: full code
[2019-09-14] MEDS: Ipratropium Bromide 2.5 ml Neb NEB SCH ×3 (00:54→12:18)
[2019-09-14 05:15] LABS: Anion Gap 12 mmol/L (10-20); BUN (Urea Nitrogen) 21 mg/dL (9.8-20.1); Calc. Creatinine Clearance 42 mL/min (70-130); Calcium 9.5 mg/dL (7.8-10.44); Carbon Dioxide 30 mmol/L (23-31); Chloride 95 mmol/L (98-107); Estimated GFR-MDRD 78; Glucose 92 mg/dL (83-110); Potassium 4.1 mmol/L (3.5-5.1); Sodium 133 mmol/L (136-145)
[2019-09-14 05:35] VITALS: BMI 18.9
[2019-09-14 08:05] VITALS: BP 131/78; TEMP 97.3
[2019-09-14] MEDS: Amoxicillin/Potassium Clav 875 MG TAB PO SCH (10:26)
[2019-09-14] MEDS: Spironolactone 25 MG TAB PO SCH (10:26)
[2019-09-14] MEDS: Torsemide 20 MG TAB PO SCH (10:26)
[2019-09-14] MEDS: Potassium Chloride 20 MEQ TAB PO SCH (10:26)
[2019-09-14] MEDS: Digoxin 0.125 MG TAB PO SCH (10:26)
[2019-09-14] MEDS: Apixaban 2.5 MG TAB PO SCH (10:27)
[2019-09-14] MEDS: Acetaminophen/Codeine 30-300mg Tablet PO PRN (10:27)
--- NOTE | 2019-09-14 11:54 | DIS ---
DATE OF ADMISSION: 09/04/2019 DATE OF DISCHARGE: 09/14/2019 ADMITTING DIAGNOSES: Acute hypoxic respiratory failure secondary to congestive heart failure exacerbation with moderate mitral regurgitation, severe tricuspid regurgitation, and moderate aortic regurgitation. DISCHARGE DIAGNOSES: 1. Acute hypoxic respiratory failure secondary to acute diastolic congestive heart failure exacerbation. 2. Right pleural effusion with possible pneumonitis. 3. Atrial fibrillation with RVR 4. Moderate mitral regurgitation 5. Severe tricuspid regurgitation 6. Moderate aortic regurgitation SECONDARY DISCHARGE DIAGNOSES: Hyponatremia, atrial fibrillation, metabolic alkalosis, arthritis, agitation. CONSULTATIONS: 1. Cardiology, Dr. Luther West. 2. Dr. Higinio Terrell from Pulmonary. 3. Dr. Joaquin Resendez from Pulmonary. 4. Dr. Raymundo Golden from Cardiology. PROCEDURES: No major interventions. HISTORY AND HOSPITAL COURSE: Acute diastolic CHF exacerbation Afib with RVR: This is an 84-year-old female with a past medical history of hypertension, atrial fibrillation, chronic CHF, COPD, who had presented with worsening shortness of breath, lower extremity edema, and hypoxia with O2 saturation in the 70s while on 12 L of oxygen. She was also noted to be in atrial fibrillation with RVR on admission. Chest x-ray on admission showed a moderately large right pleural effusion. Troponin was negative. She was admitted for IV diuretics. She was initially diuresed with IV Lasix during her hospital course, but then developed metabolic alkalosis. Cardiology was consulted and IV Diamox was added which was eventually discontinued. Spironolactone was added by cardiology and her torsemide dose was increased to 40 mg daily as an outpatient. Her diltiazem dose for her afib was reduced from 240 mg to 180 mg. Repeat chest x-ray on 09/11 showed decrease in size of her right pleural effusion. Due to persistent hypoxia on room air and symptomatic shortness of breath, pulmonary was consulted regarding thoracentesis, however they felt that since she had a transudative effusion last year it was not indicated at this time. The patient will follow up with Dr. Terrell from Pulmonary in 2 to 3 weeks. He will repeat a chest x- ray at that time and if it is felt that the pleural effusion is still large in size, he may consider a thoracentesis at that time. Echo was done on 09/05, which showed an EF of 50% to 55%, moderate to severely dilated left atrium, moderate mitral regurgitation, moderate aortic regurgitation, and severe tricuspid regurgitation. Troponin was less than 0.01 on admission. Cardiology stated valve repair would not be indicated at this time. Hyponatremia: The patient was noted to have a sodium of 133 on day of discharge. This is likely from her pleural effusion. She is not symptomatic from this and can have her BMP rechecked as an outpatient. Right pleural effusion with possible pneumonitis: She was diuresed and pulmonary did not think she needed thoracentesis. She was treated for possible pneumonia due to persistent productive cough with augmentin. Her cough seemed to improve with this. She will be discharged with 3 more days of Augmentin to complete a 7-day course. Agitation: The patient was noted to have episodes of aggressive behavior in the hospital according to the daughter and was very agitated. She was started on Seroquel twice daily as needed. This may have been worsened by Tylenol No. 3 that she was requesting for her arthritis. Tylenol 3 however, will not be prescribed on discharge. Atrial fibrillation: Continue Eliquis, digoxin, and diltiazem. Her diltiazem dose has reduced as mentioned above. PERTINENT IMAGIN. Chest x-ray on 09/04: interval development of moderately large right pleural effusion. Linear and minimal patchy densities at the left lung base, which may be related to atelectasis versus pneumonitis. 2. Chest x-ray on 09/08 : granulomatous disease. Moderate-sized right pleural effusion with adjacent infiltrate/atelectatic change. 3. Chest x-ray on 09/11 : persistent, but slightly decreasing right pleural effusion. Old granulomatous disease. Atherosclerosis of the aorta with ectasia. 4. Venogram on 09/07 shows no evidence of DVT in either lower extremity. Left Pang cyst. Physical exam on day of discharge: General: patient cachectic, on 2L of oxygen. Skin: multiple bruising over arms CVS: irregular rate and rhythm, no murmurs heard or gallops Lungs: diminished breath sounds at bases Abdomen: +BS, soft, nontender, nondistended Extremities: no edema appreciated PERTINENT LABORATORY DATA: BMP on day of discharge shows mild hyponatremia with a sodium of 133. CBC is normal. CONDITION UPON DISCHARGE: Alert and oriented, stable on 2 L of oxygen at rest and 5 L of oxygen on exertion. She requires PT and OT as an outpatient ACTIVITY: As tolerated. DIET: Heart healthy diet with 2 L fluid restriction. FOLLOWUP: PCP in 1 week, Dr. 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 Repeat BMP in a week and repeat chest X ray Code status: DNR/DNI MEDICATIONS AT DISCHARGE: 1. Augmentin 875 mg p.o. b.i.d. for 3 days. 2. Diltiazem 180 mg p.o. daily. 3. Seroquel 25 mg p.o. b.i.d. as needed. 4. Spironolactone 25 mg p.o. q.a.m. with meals. 5. Torsemide 40 mg p.o. daily. 6. Eliquis 2.5 mg p.o. b.i.d. 7. Digoxin 0.125 mg p.o. q.a.m. 8. Atrovent 2.5 mL neb q.6 hours. 9. Melatonin 3 mg p.o. at bedtime p.r.n. 10. Benadryl 25 mg p.o. at bedtime p.r.n. Job ID: [id number] [facility]
--- NOTE | 2019-09-16 01:01 | PQF ---
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 Clarke, [facility] Please exercise your independent, professional judgment in responding to the clarification form. Clinical indicators are provided on the bottom of this form for your review Can you please further specify the diagnosis based on the clinical indicators below? Please check appropriate box(s): [ ] Protein Calorie Malnutrition: [ ] Mild [ ] Moderate [ X ] Severe [ ] Other Malnutrition (please specify) __ [ ] Underweight without malnutrition [ ] Cachexia [ ] Other diagnosis please specify [ ] Unable to determine In addition, please specify: Present on Admission (POA): [ ] Yes [ ] No [ ] Unable to determine CLINICAL INDICATORS - SIGNS / SYMPTOMS / LABS BMI of 19 Hospitalist PN 09/10 Dr. Jc pg.3- "cachexia associated with cardiac disease" Nutrition Note 09/08 - RD noted severe fat pad wasting to orbital region, moderate to severe muscle wasting to biceps and triceps Nutrition Note 09/08 - has significant edema as her UBW is 110 lb. Nutrition Note 09/08Dr. Tavares-I "would say this enough evidence for malnutrition diagnosis" DS pg.3- "patient is cachectic" RISK FACTORS acute diastolic congestive failure exacerbation- DS pg.1 Hyponatremia- DS pg.1 Metabolic alkalosis- DS pg.1 Right pleural effusion with possible pneumonitis- DS pg.2 Hypertension- H and P pg.1 COPD H and P pg.1 TREATMENT: Dietary consult 09/08 IV Fluids- MAR 09/04 Nutritional supplements- Nutrition Consult- Note Dr. 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 Moderate Malnutrition (in chronic illness) Energy Intake: <75% of estimated energy requirement for >1 month Weight Loss: 5%/1 month; 7.5%/3 months; 10%/6 months; 20%/1 year Other: mild body fat loss; mild muscle mass loss; mild fluid accumulation Severe Malnutrition (in chronic illness) Energy Intake: <75% of estimated energy requirement for >1 month Weight Loss: >5%/1 month; >7.5%/3 months; >10%/6 months; >20%/1 year Other: severe body fat loss; severe muscle mass loss; severe fluid accumulation ; measurably reduced tractor 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 All Rights Reserved Brian [email or web address] [not [email or web address]] [email or web address]
== END 2019-09-14 11:50 | DRG 291 ==
LOC: ERS 08:02 → ERHOLD 13:01 → 2SE 13:03
PROVIDERS: ADMIT Internal Medicine; ATTEND Internal Medicine
DX: I11.0 Hypertensive heart disease with heart failure (principal); J96.21 Acute and chronic respiratory failure with hypoxia; J18.9 Pneumonia, unspecified organism; E43 Unspecified severe protein-calorie malnutrition; I48.20 Chronic atrial fibrillation, unspecified; E87.3 Alkalosis; I47.2 Ventricular tachycardia; E87.1 Hypo-osmolality and hyponatremia; R64 Cachexia; Z68.1 Body mass index [BMI] 19.9 or less, adult; J44.0 Chronic obstructive pulmonary disease with (acute) lower respiratory infection; Z66 Do not resuscitate; Z23 Encounter for immunization; I50.33 Acute on chronic diastolic (congestive) heart failure; F17.290 Nicotine dependence, other tobacco product, uncomplicated; I48.91 Unspecified atrial fibrillation; M15.9 Polyosteoarthritis, unspecified; E88.09 Other disorders of plasma-protein metabolism, not elsewhere classified; R77.1 Abnormality of globulin; I27.20 Pulmonary hypertension, unspecified; I08.3 Combined rheumatic disorders of mitral, aortic and tricuspid valves; R45.1 Restlessness and agitation; Z90.710 Acquired absence of both cervix and uterus; Z79.01 Long term (current) use of anticoagulants; Z79.899 Other long term (current) drug therapy; I50.810 Right heart failure, unspecified
CPT/HCPCS: 36415; 71045; 80048; 80053; 80069; 80076; 80162; 83735; 83880; 84484; 85014; 85018; 85025; 85027; 85049; 85610; 85730; 89220; 90471; 90662; 93005; 93306; 93798; 93970; 94640; 96374; 96375; G0008; J1120; J1940; J3475; Q0163

== ENCOUNTER 2019-10-05 13:38 | Outpatient (CLI) | payer MEDICARE ==
--- NOTE | 2019-10-05 14:21 | RAD ---
EXAM: Two views chest PROVIDED CLINICAL HISTORY: Dyspnea COMPARISON: 09/11/2019 FINDINGS: Clinic silhouette is mildly enlarged. Pulmonary vasculature is within normal limits. The previously s een moderate-sized right pleural effusion has almost completely resolved with suggestion of minimal residual right pleural effusion. There is persistent elevation right hemidiaphragm and linear atelect asis is present at the right lung base. A spiculated nodular density is seen in the retrocardiac region medial left lung base which was not appreciated on the prior exam. Further evaluation with CT scan thorax is recommended. Mild chronic lung changes are seen. Calcified mediastinal lymph nodes are identified. There is nodularity involving the right hilar region. This could be related to promin ence of the pulmonary vasculature, but mass or enlarged lymph node is a possibility. There are calcified right hilar lymph nodes present. Vascular calcifications are seen in a tortuous and ectatic thoracic aorta. Osteopenia is present. IMPRESSION: 1. Spiculated nodular density retrocardiac region medial left lung base. This was not seen on the audrey or exam. A CT scan thorax is recommended for further evaluation. However, if the patient does have clinical signs and symptoms of infectious process, follow-up chest x-ray can be performed in 3 months to ensure resolution. 2. Nodular appearance of the right hilum which may be related to vascular structures. This can also b e reevaluated on CT scan versus follow-up chest x-ray. 3. Evidence of prior granulomatous disease. 3. Mild cardiomegaly. 4. Osteopenia..
== END 2019-10-05 13:39 | disposition home or self-care (01) ==
LOC: RAD 13:38
PROVIDERS: ATTEND Internal Medicine
DX: R06.00 Dyspnea, unspecified (principal); J98.4 Other disorders of lung; I51.7 Cardiomegaly; M85.80 Other specified disorders of bone density and structure, unspecified site
CPT/HCPCS: 71046

== ENCOUNTER 2020-05-15 18:23 | Inpatient (IN) | payer MEDICARE ==
[2020-05-15 19:03] LABS: #Basophils 0.1 thou/uL (0.0-0.2); #Eosinphils 0.1 thou/uL (0.0-0.7); #Lymphocytes 1.3 thou/uL (1.20-3.40); #Monocytes 0.7 thou/uL (0.11-0.59); #Neutrophils 7.6 thou/uL (1.40-6.50); %Basophils 0.8 % (0.0-1.0); %Eosinophils 0.7 % (0.0-10.0); %Lymphocytes 13.2 % (21.0-51.0); %Monocytes 6.8 % (0.0-10.0); %Neutrophils 78.4 % (42.0-75.0); Hemoglobin 11.8 g/dL (12.0-16.0); Mean Corpuscular HGB CONC 32.7 g/dL (32.0-36.0); Mean Corpuscular Hemoglobin 30.7 pg (27.0-31.0); Mean Corpuscular Volume 93.7 fL (78.0-98.0); Mean Platelet Volume 7.2 fL (7.4-10.4); Platelet Count 356 thou/uL (130-400); RBC Distribution Width 13.7 % (11.5-14.5); Red Blood Cell (RBC) Count 3.85 mill/uL (4.20-5.40); White Blood Cell (WBC) Count 9.7 thou/uL (4.8-10.8)
[2020-05-15 19:12] LABS: INR-International Normal Ratio 1.2; PTT 36.8 sec (22.9-36.1); Prothrombin Time 15.1 sec (12.0-14.7)
[2020-05-15 19:26] LABS: ALT (SGPT) 13 U/L (8-55); AST (SGOT) 13 U/L (5-34); Albumin 3.7 g/dL (3.4-4.8); Alkaline Phosphatase 81 U/L (40-110); Anion Gap 14 mmol/L (10-20); BUN (Urea Nitrogen) 36 mg/dL (9.8-20.1); Bilirubin, Total 0.4 mg/dL (0.2-1.2); Calc. Creatinine Clearance 0 mL/min (70-130); Calcium 9.4 mg/dL (7.8-10.44); Carbon Dioxide 28 mmol/L (23-31); Chloride 100 mmol/L (98-107); Estimated GFR-MDRD 32; Globulin 3.4 g/dL (2.4-3.5); Glucose 123 mg/dL (83-110); Potassium 4.1 mmol/L (3.5-5.1); Protein, Total 7.1 g/dL (6.0-8.3); Sodium 138 mmol/L (136-145)
--- NOTE | 2020-05-15 20:00 | RAD ---
EXAM: CHEST ONE VIEW HISTORY: Patient slipped and fell on right side. Right hip pain. COMPARISON: 12/30/2019 FINDINGS: Patient is rotated to the right, but the cardiac silhouette is enlarged. Pulmonary vasculature is wit hin normal limits. Chronic lung changes are again seen. There are interstitial densities again seen at the lateral left lung base. The patchy pleural and parenchymal density seen at the right lung base on prior study have resolved. Calcified mediastinal and right hilar lymph nodes are again present. Vascular calcifications are seen in a tortuous and ectatic thoracic aorta. Osteopenia is present. The previously seen densities at the right lung base have resolved. IMPRESSION: 1. Interstitial densities left lung base which were also seen on prior exam. Findings could be relate d to chronic lung changes. Pneumonitis left lung base is not entirely excluded. 2. Cardiomegaly. 3. Chronic changes as above.
--- NOTE | 2020-05-15 20:02 | RAD ---
Exam: XR Hip Rt 2-3 View HISTORY: Right hip pain after fall. COMPARISON: 12/30/2019 FINDINGS: There is suggestion of a fracture involving the base of the right femoral neck. However, due to overl justine soft tissue density this is difficult to adequately evaluate. CT scan pelvis is recommended for further evaluation. No dislocation is present. Osteopenia is present, and soft tissue density ove rlying the right superior and inferior pubic rami limits osseous detail. Prominent vascular calcifications are again seen. IMPRESSION: Limited examination due to overlying soft tissue density and osteopenia. However, there is questionab le fracture involving the base of the right femoral neck. This could be artifactual, and CT scan pelvis is recommended for further evaluation.
[2020-05-15] MEDS ORDERED: Fentanyl 100 MCG/2 ML VIAL ONE (20:40)
--- NOTE | 2020-05-15 21:06 | CT ---
EXAM: CT Pelvis WO Con PROVIDED CLINICAL HISTORY: Injury to right hip after a fall. COMPARISON: 12/30/2019 FINDINGS: There is a comminuted intertrochanteric right hip fracture with fracture extending into the base of t he right femoral neck and involving the superior aspect of the greater trochanter. Previously described fracture involving the right inferior pubic ramus near the level of the ischial tuberosity is again present with increased density now seen involving the fracture. No additional fracture is seen, and there is no dislocation. Diffuse osteopenia is again present. Deg enerative changes are again seen in the lower lumbar spine. Dense vascular calcifications are again seen in the visualized abdominal aorta and iliac arteries. Th ere is mild aneurysmal dilatation of the infrarenal abdominal aorta which measures 3.1 cm in greatest transverse dimension. There is increased density seen adjacent to the comminuted intertrochanteric right hip fracture james tible with hemorrhage/hematoma. The most inferior extent of the hemorrhage is not visualized. There is evidence of a fat fluid level in region of the hemorrhage. Colonic diverticulosis is seen. Subcentimeter too small to characterize hypodense lesion is seen involving the midportion right kidne y. Urinary bladder has a normal nonenhanced CT appearance. IMPRESSION: 1. Comminuted intertrochanteric right hip fracture with adjacent hemorrhage/hematoma. The most inferi or extent of the hemorrhage is not seen, and there is a fat fluid level within the area of hemorrhage. 2. Fracture involving the right inferior pubic ramus and region of the ischial tuberosity is again se en. There is increased density seen involving the fracture on today's exam. 3. Diffuse osteopenia. 4. Severe degenerative changes lower lumbar spine. 5. Infrarenal abdominal aortic aneurysm with dense vascular calcifications.
[2020-05-15] MEDS ORDERED: Dextrose 5% in Water 1,000 ML IV PRN (21:20)
[2020-05-15] MEDS ORDERED: HumaLOG 300 UNITS/3 ML VIAL SC PRN (21:20)
[2020-05-15] MEDS ORDERED: Ondansetron PF 4 MG/2 ML Vial IVP PRN (21:20)
[2020-05-15] MEDS ORDERED: hydrALAZINE 20 MG/ML VIAL SLOW IVP PRN ×2 (21:20)
[2020-05-15] MEDS ORDERED: Morphine 4 MG/ML VIAL SLOW IVP PRN (21:20)
[2020-05-15] MEDS ORDERED: Dextrose 50% Abboject 50 ML SYRINGE SLOW IVP PRN (21:20)
[2020-05-15] MEDS ORDERED: Morphine 2 MG/ML SYRINGE SLOW IVP PRN (21:20)
[2020-05-15] MEDS ORDERED: traMADol HCl 50 MG TAB PO PRN (21:26)
--- NOTE | 2020-05-15 22:00 | HP ---
REQUESTING PHYSICIAN: Deuce Padilla DO CONSULTING PHYSICIAN: Trever Boudreaux MD. ATTENDING PHYSICIAN: Ludwig Turpin MD. HISTORY OF PRESENT ILLNESS: Ms. Lackey is an 84-year-old female, who presented to the ED with a chief complaint of right hip pain. The patient's daughter reports that the patient was walking in her home using walker, tripped and fell onto her hip. After the fall, the patient was unable to bear weight on the right lower extremity. Denied loss of consciousness or hitting her head. No other injury to be reported. Upon arrival in the ED, the patient was alert and awake, GCS 15, vital signs stable except the patient in tachy with a heart rates 112 per minute. Complained of right hip pain. REVIEW OF SYSTEMS: Noncontributory except per HPI. PAST MEDICAL HISTORY: The patient has a past medical history of hypertension, COPD, atrial fibrillation, CHF, arthritis, bleeding ulcer. 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 Jorge Luis Mirza. PAST SURGICAL HISTORY: Hysterectomy. SOCIAL HISTORY: The patient lives at home. Previous smoker, quit 2 years ago. Drinks socially. Denies drug use. The patient ambulates around the house using a walker. ALLERGIES: NO KNOW DRUG ALLERGIES. CURRENT MEDICATIONS: 1. Eliquis 2.5 b.i.d. 2. Diltiazem XR 180 daily. 3. Spironolactone 25 mg daily. 4. Torsemide 20 mg daily. 5. Digoxin 0.125 daily. PHYSICAL EXAMINATION: GENERAL: Currently, the patient is lying down in bed with no acute respiratory distress. The patient is breathing nonlabored. The patient is thin with malnutrition. Skin is moist and pink. HEENT: Atraumatic. No bruising. Not tender to palpation. Pupil 3 mm, equal bilaterally. NECK: Trachea midline. Not tender to palpation. CHEST: Atraumatic. No bruising. Not tender to palpation. LUNGS: Clear bilaterally. HEART: Irregularly irregular rhythm. Systolic murmur 3/6 on intercostal five and mid clavicle line. ABDOMEN: Soft and nondistended. Bowel sounds active. Not tender to palpation. PELVIS: Stable. EXTREMITIES: Right lower extremity, external rotation. Right hip tender to palpation and limited range of motion due to pain. Pitting edema bilateral lower extremities. Pulses positive bilaterally. NEUROLOGIC: No focal neurology deficits. LABORATORY DATA: Initial workup showed sodium 138, potassium 4.1, creatinine 1.55, glucose 123, AST 13, ALT 13, PTT 36.8. White count 9.7, hemoglobin 11.8. IMAGING: CT of the pelvis showed comminuted intertrochanteric right hip fracture, right inferior pelvic ramus, intrarenal abdominal aortic aneurysm. Hip x-ray, questionable fracture involving the base of right femoral neck. Chest x-ray, cardiomegaly, interstitial density in left lung base, pneumonitis not entirely excluded. ASSESSMENT: 1. Status post mechanical fall while standing. 2. Right intertrochanteric fracture. 3. History of chronic obstructive pulmonary disease, congestive heart failure, atrial fibrillation, on Eliquis. PLAN: The patient will be admitted to [place] [address] for pain control. Initiate nonpharmacological DVT prophylaxis, gastritis prophylaxis. The patient will be holding Eliquis. Dr. Boudreaux will plan to take the patient to go to the OR on Friday. Postop, the patient will need to work with Physical Therapy and Occupational Therapy. Anticipate placement in rehabilitation facility. It will be discussed with Dr. Turpin about the patient after the dictation. Job ID: [id number]
[2020-05-15] MEDS: Sodium Chloride 0.9% 1,000 ML IV SCH (23:28)
[2020-05-16] MEDS: Acetaminophen 325 MG TAB PO SCH ×5 (00:47→22:32)
[2020-05-16 04:31] LABS: Digoxin Less than 0.15 ng/mL (0.8-2.0)
[2020-05-16 04:34] LABS: Anion Gap 15 mmol/L (10-20); BUN (Urea Nitrogen) 32 mg/dL (9.8-20.1); Calc. Creatinine Clearance 24 mL/min (70-130); Calcium 8.6 mg/dL (7.8-10.44); Carbon Dioxide 25 mmol/L (23-31); Chloride 100 mmol/L (98-107); Estimated GFR-MDRD 44; Glucose 127 mg/dL (83-110); Potassium 3.8 mmol/L (3.5-5.1); Sodium 136 mmol/L (136-145)
[2020-05-16] MEDS ORDERED: CEFAZOLIN 1 GM in Premix Bag 1 BAG IVPB SCH (08:00)
[2020-05-16] MEDS ORDERED: ceFAZolin 1 GM/D5W 1 GM in Premix Bag 1 BAG IVPB SCH (08:15)
--- NOTE | 2020-05-16 08:39 | CON ---
DATE OF CONSULTATION: This is Escobar Krause PA-C dictating a report for Trever Boudreaux MD. HISTORY OF PRESENT ILLNESS: We were asked by Trauma and the ER to see the patient. The patient states she was going down her driveway. She did have some assist, but she does state she has a steepest driveway in the neighborhood. So, she got down the driveway okay, went to her neighbor's garbage can in the street, and then walked back up the hill. She states she was duck walking slowly. As she got up to the hill, there was a step at the top and she tumbled. No loss of consciousness, but her hip hurts quite a bit. The patient states it goes into her thigh and into her groin. She does have some neurological issues in the feet with pins and needles and some neuropathies, but she is able to feel all sensations. The pain does not travel below the knee. She states also she has a very wonderful physical therapists, who helps her keep in shape. She has been trying to eat more, but she has been losing weight rapidly. She states over her life besides atrial fibrillation, she is quite healthy. She does live alone, but her family is telling her and arguing with her that she needs to probably go someplace else. They feel she is demented, but talking with her extensively, she is quite lucid. PAST MEDICAL HISTORY: Positive for hypertension, COPD, atrial fibrillation, congestive heart failure, arthritis, and bleeding ulcers, and very sensitive skin due to her Eliquis. She has bruises up and down her arms and legs. PAST SURGICAL HISTORY: Hysterectomy. SOCIAL HISTORY: She lives alone. Previous smoker. Occasional EtOH beverage. No drug use. The patient ambulates around the house, but does like to get out and about, but is not able to, as her family denies her this privilege, but she has friends, who come over and help. ALLERGIES: NO KNOWN DRUG ALLERGIES. CURRENT MEDICATIONS: 1. Eliquis. 2. Diltiazem. 3. Spironolactone. 4. Torsemide. 5. Digoxin. REVIEW OF SYSTEMS: None. She is quite extensive in her review of systems. Denies any chest pain, maybe a mild shortness of breath, but her main complaint is that right hip pain. No bruising currently on it, but she is able to move her legs very well and is quite fidgety, but she says she does this, so she can keep her muscle tone, although she has some neuropathic problems in her feet. She states she can feel these quite well. Rest of review of systems is negative. PHYSICAL EXAMINATION: GENERAL: Very small, petite, frail-appearing female, very pleasant and quite talkative, but very lucid. Speech clear. Affect very pleasant. Answers questions appropriately. Oriented x3. HEENT: Face symmetric. Tongue midline. NECK: Supple. Trachea midline. CHEST: Respirations 16, in no acute distress. PELVIS: Mild right hip pain with rocking. EXTREMITIES: Upper extremities, equal size, shape, symmetry. Normal bulk and tone, but with extensive bruising to bilateral forearms. She does have some open areas on her fingertips on both hands, but these are wrapped. She is able to move her upper extremities well and sensations are intact. Bilateral lower extremities also equal size, shape, symmetry. Normal bulk and tone with the exception of the right hip might be a little swollen compared to the left hip area, that area is very tender to palpation. Any movement causes her to say some choice words. Below the knees, lots of bruising to the lower extremities, better DP/PT pulses are present. Sensations are good and she is moving below the knees and her extremities quite well. DIAGNOSTIC DATA: 1. X-ray show a right intertrochanteric fracture. 2. Multiple health issues, currently being managed by Trauma. PLAN: We will have to give her a day being off the Eliquis and we will plan on putting her on the surgery schedule tomorrow. I explained the risks and benefits of surgery to the patient. She has a very good understanding of this. Her questions and concerns have been addressed extensively and she is amenable to go forth with surgery. We will work with Trauma. Once they allows to do surgery, we will get this set up on the surgery schedule and I will let her know this. We will keep her n.p.o. after midnight. Antibiotics have been ordered and we will get her set up for surgery in the afternoon tomorrow. Job ID: [id number]
[2020-05-16] MEDS ORDERED: Digoxin 0.125 MG TAB PO SCH (09:00)
[2020-05-16] MEDS ORDERED: Torsemide 20 MG TAB PO SCH (09:00)
[2020-05-16] MEDS: Spironolactone 25 MG TAB PO SCH (09:07)
[2020-05-16] MEDS: Polyethylene Glycol 3350 17 GM Packet PO SCH (09:07)
[2020-05-16] MEDS: Gabapentin 100 MG CAP PO SCH ×2 (09:07→20:38)
[2020-05-16] MEDS: Senokot S 8.6-50 MG TAB PO SCH ×2 (09:07→20:38)
[2020-05-16] MEDS: Potassium Chloride 20 MEQ TAB PO SCH (09:08)
[2020-05-16] MEDS: Famotidine/PF 20 mg/2ml Vial SLOW IVP SCH (09:08)
[2020-05-16 11:35] VITALS: BMI 18.1
[2020-05-16 11:51] LABS: Digoxin Less than 0.15 ng/mL (0.8-2.0)
[2020-05-16] MEDS ORDERED: Digoxin 0.5 MG/2 ML AMP SLOW IVP SCH (15:00)
[2020-05-16] MEDS ORDERED: Melatonin 3 MG TAB PO PRN (15:13)
[2020-05-16 16:08] LABS: ALT (SGPT) 13 U/L (8-55); AST (SGOT) 12 U/L (5-34); Albumin 3.3 g/dL (3.4-4.8); Alkaline Phosphatase 79 U/L (40-110); Bilirubin, Direct 0.4 mg/dL (0.1-0.3); Bilirubin, Total 0.5 mg/dL (0.2-1.2); Magnesium 1.4 mg/dL (1.6-2.6); Protein, Total 6.5 g/dL (6.0-8.3)
[2020-05-16] MEDS ORDERED: Diltiazem HCl SR 90 mg Capsule PO SCH (17:30)
[2020-05-16] MEDS: Amiodarone 150 MG in Dextrose 5% in Water 100 ML IVPB SCH ×2 (17:37→22:20)
[2020-05-16] MEDS ORDERED: Magnesium 2 GM/50 ML 2 GM in Premix Bag 1 BAG IVPB SCH (20:00)
--- NOTE | 2020-05-16 21:00 | PRG ---
DATE OF SERVICE: 05/16/2020 The patient was seen by Dr. Tee Haynes. SUBJECTIVE: This is an 84-year-old female with past medical history of atrial fibrillation, coronary artery disease, vasculopath, currently on Eliquis, status post mechanical fall with right intertrochanteric hip fracture, admitted overnight. The patient was admitted to telemetry, where she was in atrial fibrillation with RVR. Per her, she has been taken off her digoxin. She states she has been compliant with her other medications. At the time of exam, the patient does have tachycardia at 130s to 140s. She denies chest pain, shortness of breath. EKG and telemetry were reviewed. The patient is eating. Discussed the case with Orthopedics and planned for operative repair tomorrow. The patient has no other complaints. No other events overnight. PHYSICAL EXAMINATION: VITAL SIGNS: Temperature is 97.4, blood pressure is 108/70, heart rate is 130, she is breathing 14 times per minute, 94% on room air. GENERAL: This is an 84-year-old thin, somewhat cachectic female sitting up in bed, eating, no acute distress. HEENT: Normocephalic, atraumatic. Trachea is midline. No JVD. RESPIRATORY: Equal rise and fall. Breath sounds clear. CARDIOVASCULAR: Irregularly irregular tachycardic rhythm. No edema. Strong pulses. ABDOMEN: Soft and nontender. PELVIS: Stable. Does have tenderness on right side. EXTREMITIES: Right-sided pelvis tenderness. She does have some skin changes with mild erythema noted to the bilateral lower extremities. Slight edema. They are warm. Immediate cap refill appreciated. No wounds are noted. PSYCH: The patient is somewhat impulsive and anxious. NEUROLOGIC: Alert and oriented. LABORATORY DATA: From this morning shows sodium 136, potassium 3.8, chloride is 100, CO2 is 25, creatinine is 1.17, glucose 127, calcium 8.4, mag 1.4, total bilirubin 0.5. Iron is 3.3. ASSESSMENT: 1. Status post mechanical fall. 2. Right intertrochanteric hip fracture. 3. Atrial fibrillation with rapid ventricular response. 4. Medical noncompliance. 5. History of chronic obstructive pulmonary disease, congestive heart failure, atrial fibrillation. PLAN: 1. The patient is on the telemetry palacios. Continue same. 2. We will obtain digoxin level and load as needed. 3. Check mag and phos. Replace electrolytes as needed. 4. Check TSH. 5. Will need rate control. 6. Orthopedics has consulted. Appreciate recommendations. 7. The patient is DNR. 8. Updated as of approximately 1500 hours. The patient's digoxin level is low. Ordered the load of the same. The patient has refused. States that she has been taken off this, "we are trying to kill her," therefore, we stopped that. We no longer tracked for the digoxin ordered. Her blood pressure is on the low side. Ordered amiodarone bolus and drip. Again, the patient is adamantly refusing the same. Please see the nurses' notes. The patient understands that she has higher heart rates and may not get her surgery. She states if it is her time to go, then so be it. We have consulted Palliative Care. I have also consulted Cardiology. She did not want to see the initial inflated ball molder. She did speak to the TELESCOPE OPERATOR. Please see their documentation. They will try to continue to work with the patient. She did verbalize understanding that if she does not have her heart rate treated, she could have deteriorated effects, especially given her vascular status. We kept on telemetry for tonight. Palliative Care, Cardiology consulted. She verbalized understanding. She may not get her hip fixed and we will further work with the patient for her own goals of care. 9. I have updated the patient. Answered questions multiple times. I spoke [id number] outside the patient's room and met with the Cardiology TELESCOPE OPERATOR to try to develop a plan. I spoke to the nurse multiple times throughout the day. Job ID: [id number]
[2020-05-16] MEDS: Amiodarone 450 MG in Dextrose 5% in Water 250 ML IVPB SCH (22:26)
[2020-05-16] MEDS: Sodium Chloride 0.9% 1,000 ML IV SCH ×2 (22:28→22:32)
[2020-05-17] MEDS: Sodium Chloride 0.9% 1,000 ML IV SCH ×2 (02:00→16:44)
--- NOTE | 2020-05-17 02:14 | PRG ---
DATE OF SERVICE: 05/16/2020 SUBJECTIVE: The patient remains on the telemetry unit. The patient is hospital day #1 status post mechanical fall, in which she sustained a right intertrochanteric hip fracture. The patient was in atrial fibrillation with rapid ventricular response early this morning and was refusing her digoxin and amiodarone. Currently, the patient is in atrial fibrillation with a heart rate of 114. The patient is currently resting comfortably in no distress. Nursing staff states that she finally did allow the amiodarone be started. OBJECTIVE: VITAL SIGNS: Temperature 97.6, pulse 120, respirations 20, SpO2 of 95% on room air, and blood pressure 113/68. GENERAL: Elderly female, resting comfortably, in no acute distress. RESPIRATORY: Respirations are even and nonlabored, no distress. ASSESSMENT: 1. Status post mechanical fall. 2. Right intertrochanteric hip fracture. 3. Atrial fibrillation with rapid ventricular response. 4. Medical noncompliance. 5. History of chronic obstructive pulmonary disease, congestive heart failure, and atrial fibrillation, on Eliquis. PLAN: Continue to campus monitor. Continue amiodarone. Replace electrolytes as needed. Orthopedic Surgery plans to take the patient to the OR tomorrow, as long as the patient's heart rate is controlled. N.p.o. after midnight with IV maintenance fluids, normal saline at 75 an hour. Repeat labs in the morning. Continue to hold the patient's Eliquis. Job ID: [id number]
[2020-05-17 04:52] LABS: Anion Gap 13 mmol/L (10-20); BUN (Urea Nitrogen) 33 mg/dL (9.8-20.1); Calc. Creatinine Clearance 26 mL/min (70-130); Calcium 8.2 mg/dL (7.8-10.44); Carbon Dioxide 26 mmol/L (23-31); Chloride 99 mmol/L (98-107); Estimated GFR-MDRD 47; Glucose 114 mg/dL (83-110); Magnesium 1.9 mg/dL (1.6-2.6); Phosphorus 2.9 mg/dL (2.3-4.7); Potassium 4.4 mmol/L (3.5-5.1); Sodium 134 mmol/L (136-145)
[2020-05-17 04:56] LABS: Band 3 % (5-11); Eosinophils 1 % (0-10); Hemoglobin 10.3 g/dL (12.0-16.0); Lymphocytes 22 % (21-51); MDiff Complete? YES; Mean Corpuscular HGB CONC 33.8 g/dL (32.0-36.0); Mean Corpuscular Volume 94.7 fL (78.0-98.0); Mean Platelet Volume 7.7 fL (7.4-10.4); Monocytes 7 % (0-10); Neutrophil 67 % (42-75); Platelet Count 266 thou/uL (130-400); Platelet Morphology Comment Appears Adequate; RBC Distribution Width 13.8 % (11.5-14.5); White Blood Cell (WBC) Count 8.5 thou/uL (4.8-10.8)
[2020-05-17] MEDS: Acetaminophen 325 MG TAB PO SCH ×3 (06:18→16:49)
--- NOTE | 2020-05-17 06:33 | CON ---
DATE OF CONSULTATION: PRIMARY CARE DOCTOR: Dr. Damian Luu. PRIMARY PRESSURIZATION MECHANIC: Luther West MD REASON FOR CARDIOLOGY CONSULT: Atrial fibrillation with rapid ventricular response with the patient refusing any antiarrhythmic medication. HISTORY OF PRESENT ILLNESS: Ms. Lackey is an 84-year-old female with significant history of permanent atrial fibrillation; hypertension; bleeding due to Voltaren; current smoker, e-cigarette; and COPD. The patient followed up with Dr. West in 2018 in the office. At that time, the patient was on diltiazem 240 mg once a day, digoxin 125 mcg once a day, and Eliquis 2.5 mg twice a day. However, the patient stopped digoxin by herself since the patient refused taking the medicine for unknown reasons. However, she has not followed up with Dr. West's office since 2018. The patient was doing relatively well for her cardiac standpoint according to the patient. She has not had any palpitation, fluttering, dizziness, lightheadedness, or any other cardiac complaints. The patient's heart rate has been stable around 70 to 80s with pulse ox. Her blood pressure at home has been 100 to 110s on the systolic. However, she tripped on the gap of her floor yesterday since she was wearing big slippers and she fell on the floor. Her neighbor called the ambulance and the patient was transferred to emergency department. The patient has been on the telemetry, which started showing atrial fibrillation with rapid ventricular response with heart rates up to 170s for more than 3 to 4 hours. The patient was asymptomatic at this moment. She keeps refusing any antiarrhythmic medication although the patient's nurse and PA from trauma team have talked to the patient about the importance of the stable vital signs prior to the surgery. At this moment, the patient denies any chest pain, heaviness, tightness, shortness of breath, palpitation, dizziness, lightheadedness, any fatigue, or any cardiac complaints. The patient had echocardiogram done in August 2019 with EF 50% to 55%, moderate to severe dilated left atrium, mild to moderate mitral valve regurgitation, moderate aortic valve regurgitation, severe tricuspid regurgitation, and moderate elevated pulmonary artery pressure. She has not had any stress test or cardiac catheterization according to medical record in the hospital and Dr. West's office. PAST MEDICAL HISTORY: 1. Chronic permanent atrial fibrillation. 2. Hypertension. 3. COPD. 4. Diastolic heart failure. 5. Arthritis. 6. History of bleeding ulcer due to Voltaren. PAST SURGICAL HISTORY: Hysterectomy, laminectomy, bladder sling, and cataract. FAMILY HISTORY: Noncontributory. SOCIAL HISTORY: She lives by herself. She just lost her sister, who was living with her on April 29, 2020. Since then, she was so depressed. She was not eating well since then. She lives by herself at this moment. She used to smoke 2 packs a day, but now she quit in 2017. Since then, she smoked e-cigarette. She drinks at least one pot of coffee a day. ALLERGIES: NO KNOWN DRUG ALLERGIES. MEDICATIONS: Home medications; 1. Eliquis 2.5 mg twice a day. 2. Melatonin 3 mg once a day at night. 3. Spironolactone 25 mg once a day. 4. Torsemide 40 mg once a day. 5. Diltiazem 180 mg once a day. 6. Mirtazapine 15 mg once a day for depression. REVIEW OF SYSTEMS: 12-point review of systems negative unless otherwise mentioned in HPI. The patient has used a walker at home. She has been working with physical therapist at home. She has neuropathy and arthritis in the lower extremities. However, she denied any heartburn, blood in stool or urine, dizziness, lightheadedness, or any other cardiac complaints. PHYSICAL EXAMINATION: VITAL SIGNS: Blood pressure 102/67, temperature 97.8, pulse is 147 to 170, respiratory rate 16, and O2 saturation 97% on room air. GENERAL: The patient is alert and oriented x4, not in acute distress. HEAD: Normocephalic and atraumatic. EYES: Extraocular muscle movements intact. ENT AND MOUTH: Oral and nasal mucosa moist without lesion. NECK: Supple. Normal range of motion. No JVD. RESPIRATORY: Clear to auscultation bilaterally. CARDIOVASCULAR: Irregularly irregular. No S3 or S4. No significant murmur, heaves, or thrill noted. 2+ pulses in bilateral upper and lower extremities and no edema in the lower extremities but diminished at the bases in the right posterior tibial pulse. ABDOMEN: Soft and nontender. No mass to palpitate. Bowel sounds are present. SKIN: Warm, but the patient had a dressing in the bilateral upper extremities. The patient has erythema in the right lower extremity, looks like mild cellulitis to the patient. The patient denied to turn on the side to assess the back due to the pain at this moment. MUSCULOSKELETAL: At this moment, the patient is able to move all extremities according to the patient . NEUROLOGIC: The patient is alert and oriented x4. Nonfocal. PSYCHIATRIC: The patient's mood is appropriate except she is easy to get agitated. The patient is refusing any antiarrhythmic medication at this moment. LABORATORY DATA: WBC 9.7, hemoglobin 11.8, hematocrit 36.1, platelets 356. INR 1.2. Sodium 136, potassium 3.8, BUN 32, creatinine 1.17, glucose 127, calcium 8.6, magnesium is 1.4. AST 12, ALT 13. BNP 433. TSH 2.0837 and cortisol 14. ASSESSMENT AND PLAN: 1. Atrial fibrillation with rapid ventricular response. The patient refused to have any antiarrhythmic medication for elevated heart rate unless the patient talks to Dr. West tomorrow. The patient is aware that Dr. West is out of office today and he will be back tomorrow. The patient has been on the diltiazem 180 mg once a day at home, which we would like to resume at 90 mg twice a day due to the low blood pressure. The patient is refusing amiodarone and digoxin at this moment. The patient also voiced that she understood the risk of atrial fibrillation, which might cause hypotensive, acute heart failure and cardiac arrest. However, the patient continued refusing any antiarrhythmic medication at this moment. The patient's Eliquis has been held due to possible surgery tomorrow. 2. Hypertension. The patient's blood pressure is mildly hypotensive. We would like to continue to monitor. 3. Chronic obstructive pulmonary disease. The patient's respiratory status is stable with room air. We would like to continue to monitor. 4. Severe peripheral edema. 5. Acute on chronic diastolic heart failure. According to the patient's medical record, the patient has severe edema in the lower extremities. Today, her leg has 1 to 2 pitting edema in the bilateral lower extremities, more in the right side than the left side. She has been on torsemide and spironolactone. 6. Acute kidney injury. According to the patient, she has not eaten well since April 29 when the patient's sister . She is on normal saline at 40 mL an hour at this moment. The patient's creatinine level has been improved slowly. 7. Hypomagnesia. The patient's magnesium level was 1.4, seems like . If the patient agrees to receive the medicine, we would like to go ahead to give a magnesium drip. Hopefully, she is going to accept. 8. Current smoker. She quit cigarette in 2018 and she changed to the e- cigarette. The patient was recommended to stop the e-cigarette due to high risk of severe injury to her lungs. Thank you very much for Cardiology consult request to participate in the care of this patient. We will follow along with the patient's care team and make further recommendations as appropriate. Job ID: [id number] MTDD
[2020-05-17] MEDS ORDERED: Magnesium 2 GM/50 ML 2 GM in Premix Bag 1 BAG IVPB SCH (08:00)
[2020-05-17] MEDS ORDERED: Sodium Phosphate 15 MMOL in Sodium Chloride 0.9% 250 ML 250 ML IVPB SCH (08:00)
[2020-05-17] MEDS: Potassium Chloride 20 MEQ TAB PO SCH (08:50)
[2020-05-17] MEDS: Gabapentin 100 MG CAP PO SCH ×2 (08:51→21:16)
[2020-05-17] MEDS: Polyethylene Glycol 3350 17 GM Packet PO SCH (08:53)
[2020-05-17] MEDS: Senokot S 8.6-50 MG TAB PO SCH ×2 (08:53→21:14)
[2020-05-17] MEDS ORDERED: Diltiazem HCl SR 90 mg Capsule PO SCH (09:00)
[2020-05-17] MEDS: Famotidine/PF 20 mg/2ml Vial SLOW IVP SCH (09:01)
[2020-05-17] MEDS: Spironolactone 25 MG TAB PO SCH (09:02)
[2020-05-17] MEDS ORDERED: EPHEDRINE 25 MG/5 ML SYRINGE ONE (11:47)
[2020-05-17] MEDS ORDERED: PHENYLEPHRINE-NS 100 MCG/ML 10 ML SYRINGE ONE (11:47)
[2020-05-17] MEDS ORDERED: PROPOFOL 200 MG/20 ML VIAL ONE (11:47)
[2020-05-17] MEDS ORDERED: Lidocaine 1% PF 5 ML VIAL ONE (11:47)
[2020-05-17] MEDS ORDERED: Rocuronium Bromide 10 MG/ML (10ML VIAL) ONE (11:47)
[2020-05-17] MEDS ORDERED: Ropivacaine 0.5% HCl/PF (150 MG/30 ML VIAL) ONE (11:47)
--- NOTE | 2020-05-17 13:16 | PRG ---
DATE OF SERVICE: 05/17/2020 SUBJECTIVE: The patient was seen this morning during rounds. She was lying in bed with no signs of acute distress. She is in AFib, RVR, but has allowed nursing to start her amiodarone drips. Dr. West has evaluated the patient and reports she is well enough rate controlled and can go to the OR today with Orthopedic Surgery for fixation of her right intertrochanteric femur fracture. OBJECTIVE: VITAL SIGNS: Temperature 98.4, pulse 110, respirations 22, oxygen saturation 94% on room air, blood pressure 112/76. GENERAL: Well-appearing elderly female, sitting up in bed with no signs of acute distress. PULMONARY: Equal chest rise and fall. No signs of acute respiratory distress. CARDIAC: Regular rate and rhythm. GI: Abdomen is soft, nontender, nondistended. EXTREMITIES: 2+ pulses in all extremities. Gross motor and sensation are intact. No significant swelling noted. NEURO: GCS is 15. LABORATORY FINDINGS: White count 8.5, hemoglobin 10.3, hematocrit 30.3, platelets 266. Sodium 134, potassium 4.4, chloride 99, BUN 33, creatinine 1.12, glucose 47, phosphorus 2.9, magnesium 1.9. DIAGNOSTIC FINDINGS: Echo demonstrates EF of 50% to 60%. ASSESSMENT: 1. Status post mechanical fall on Eliquis. 2. Right intertrochanteric femur fracture. 3. Atrial fibrillation, rapid ventricular response with history of atrial fibrillation. 4. Acute kidney injury, improving. 5. History of hypertension, chronic obstructive pulmonary disease, congestive heart failure, arthritis, bleeding ulcer. PLAN: Continue n.p.o. Continue normal saline at 75 an hour, rate controlled per Cardiology. Continue to hold Xarelto. The patient is going to the OR today with Orthopedic Surgery. Replace electrolytes. Repeat blood work in the morning. The patient will likely need placement at acute rehab facility postoperatively. Job ID: [id number]
[2020-05-17] MEDS ORDERED: Fentanyl 100 MCG/2 ML VIAL ONE ×2 (13:21→13:51)
[2020-05-17] MEDS ORDERED: Sodium Chloride 0.9% 100 ML ONE (14:10)
[2020-05-17] MEDS ORDERED: CEFAZOLIN 1 GM VIAL ONE (14:10)
[2020-05-17] MEDS ORDERED: Promethazine HCl 25 MG/ML VIAL IM PRN (15:26)
[2020-05-17] MEDS ORDERED: Promethazine HCl 25 MG/ML VIAL SLOW IVP PRN (15:26)
[2020-05-17] MEDS ORDERED: Ondansetron HCl/PF 4 MG/2 ML Vial IVP PRN (15:26)
--- NOTE | 2020-05-17 15:37 | RAD ---
EXAM: 2 views of the right hip HISTORY: ORIF of right femur fracture COMPARISON: 05/15/2020 FINDINGS: 2 views of the right hip shows the patient is status post ORIF of the intertrochanteric fem ur fracture. No perihardware lucency is seen. IMPRESSION: Status post ORIF of femur fracture without evidence of complication.
[2020-05-17] MEDS: ceFAZolin 1 GM/D5W 1 GM in Premix Bag 1 BAG IVPB SCH (22:45)
--- NOTE | 2020-05-17 22:49 | OP ---
DATE OF PROCEDURE: 05/17/2020 PREOPERATIVE DIAGNOSIS: Right intertrochanteric femur fracture. POSTOPERATIVE DIAGNOSIS: Right intertrochanteric femur fracture. PROCEDURE PERFORMED: Dynamic hip screw, right intertrochanteric femur. ANESTHESIA: General. TIMEKEEPER SUPERVISOR: Dawson Leyva PA-C ESTIMATED BLOOD LOSS: 150 mL. IMPLANTS: Synthes DHS 3-hole 135-degree side plate. COMPLICATIONS: None. DRAINS: None. SPECIMEN: None. OUTCOME: Satisfactory. INDICATIONS FOR PROCEDURE: Ms. Lackey is a pleasant 84-year-old lady, status post ground level fall sustaining a right intertrochanteric femur fracture. The patient is on Eliquis and as such, we did have to delay surgical intervention due to her blood thinners. She is now approximately 48 hours out from her last dose of Eliquis and now taken to the operating room for surgical stabilization of this intertrochanteric femur fracture. Informed consent has been obtained. I believe all questions have been answered. DESCRIPTION OF PROCEDURE: The patient was brought to the operating room, and a time-out was performed followed by induction of general anesthesia. The patient was then positioned supine on the fracture table with the injured extremity held in longitudinal traction and slight internal rotation. The well leg was scissored to allow for AP and lateral C-arm imaging of the right hip. Next, a sterile prep and drape was performed of the right lateral thigh. An incision was then made distal to the greater trochanter. After skin was sharply incised, dissection was carried down to the underlying fascia juan luis. Fascia juan luis was incised in line with skin incision and reflected anteriorly and posteriorly exposing the fascia of the vastus lateralis. This fascia also sharply incised, and then the muscle belly swept off the posterior leaflet of the fascia and reflected anteriorly gaining access to the lateral cortex of the femur. Next, a 135-degree jig was used to place a threaded guidewire through the lateral cortex of the femur up the femoral neck into the femoral head approaching a [id number] position. Once appropriately aligned, measurement was taken off this guidewire. The step reamer was then passed over the guidewire for preparing the femoral neck and head for the hip screw placement. Next, an 85 mm hip screw with 135-degree 3-hole side plate was applied using standard technique. Once the hip screw fully delivered up into the femoral head, the plate was secured to the lateral cortex of the femur using three 4.5 mm cortical screws. Final AP and lateral C-arm images were obtained that showed acceptable alignment of the fracture and hardware. The wound was then irrigated with bulb syringe and closed in layers with 0 Vicryl for fascial closure followed by 2-0 Vicryl and arabella for the skin. Xeroform gauze and tape dressing were then applied to the lateral thigh. The patient was then transferred to recovery room in stable condition. There were no complications. She tolerated the procedure well. Job ID: [id number]
[2020-05-18] MEDS: Acetaminophen 325 MG TAB PO SCH ×4 (01:06→18:00)
[2020-05-18] MEDS: Amiodarone 450 MG in Dextrose 5% in Water 250 ML IVPB SCH ×2 (02:43→20:43)
--- NOTE | 2020-05-18 02:56 | PRG ---
DATE OF SERVICE: 05/17/2020 SUBJECTIVE: The patient remains on the telemetry floor, resting comfortably, in no acute distress. The patient's nurse reports pain has been well controlled. The patient remains on amiodarone drip. The patient remains atrial fibrillation with heart rate in the one-teens. The patient is postop day 0, status post repair of her right IT fracture. OBJECTIVE: VITAL SIGNS: Stable, afebrile. GENERAL: Elderly female, resting comfortably, in no acute distress. RESPIRATORY: Respirations are even and nonlabored, no distress. IMPRESSION: 1. Status post mechanical fall, on Eliquis. 2. Right intertrochanteric femur fracture, postop day 0, dynamic screw. 3. Atrial fibrillation with rapid ventricular response. 4. Acute kidney injury, improving. 5. History of hypertension, atrial fibrillation, chronic obstructive pulmonary disease, congestive heart failure, arthritis, and bleeding ulcer. PLAN: Continue current pain regimen and supportive care. Continue to hold patient's Eliquis until hemoglobin and hematocrit are stable. Continue physical and occupational therapy. Job ID: [id number]
[2020-05-18 05:00] LABS: Band 2 % (5-11); Hemoglobin 10.1 g/dL (12.0-16.0); Hypochromia SLIGHT = 6-15 cells (100X) (0-5/hpf); Lymphocytes 4 % (21-51); MDiff Complete? YES; Mean Corpuscular HGB CONC 32.4 g/dL (32.0-36.0); Mean Corpuscular Hemoglobin 30.6 pg (27.0-31.0); Mean Corpuscular Volume 94.4 fL (78.0-98.0); Mean Platelet Volume 7.8 fL (7.4-10.4); Monocytes 5 % (0-10); Neutrophil 89 % (42-75); Platelet Count 282 thou/uL (130-400); Platelet Morphology Comment Appears Adequate; RBC Distribution Width 13.6 % (11.5-14.5); White Blood Cell (WBC) Count 8.8 thou/uL (4.8-10.8)
[2020-05-18 05:05] LABS: Anion Gap 13 mmol/L (10-20); BUN (Urea Nitrogen) 28 mg/dL (9.8-20.1); Calc. Creatinine Clearance 30 mL/min (70-130); Calcium 8.2 mg/dL (7.8-10.44); Carbon Dioxide 23 mmol/L (23-31); Chloride 97 mmol/L (98-107); Estimated GFR-MDRD 56; Glucose 197 mg/dL (83-110); Magnesium 2.1 mg/dL (1.6-2.6); Phosphorus 3.4 mg/dL (2.3-4.7); Sodium 128 mmol/L (136-145)
[2020-05-18] MEDS: ceFAZolin 1 GM/D5W 1 GM in Premix Bag 1 BAG IVPB SCH ×2 (05:09→13:55)
[2020-05-18] MEDS ORDERED: traMADol HCl 50 MG TAB PO PRN ×2 (07:50)
[2020-05-18] MEDS ORDERED: PHOS-NAK 1 PKT PACK PO SCH (08:00)
--- NOTE | 2020-05-18 08:51 | PRG ---
DATE OF SERVICE: 05/17/2020 SUBJECTIVE: Ms. Lackey states she is thirsty this morning. Her mouth feels dry. She is n.p.o. this morning for surgery. No chest pain or shortness of breath. Otherwise, the patient is doing relatively well. OBJECTIVE: VITAL SIGNS: Her blood pressure is 107/79, pulse 106, it is irregular. LUNGS: Clear. CARDIAC: Irregularly irregular. ABDOMEN: Soft, nontender. EXTREMITIES: There is mild edema in the right leg. LABORATORY DATA: Hemoglobin is 10.3. Potassium is 4.4. GFR is 47. ASSESSMENT: 1. Atrial fibrillation, persistent with a heart rate now below 110. She is asymptomatic. 2. Diastolic heart failure. BNP is 433. PLAN: 1. Continue intravenous amiodarone. 2. We will change to oral amiodarone later. 3. Hold anticoagulation. 4. Stop diltiazem. 5. Okay to proceed to surgery this morning. We will resume diuretics later. We will have to adjust the medication based on what she actually is willing to take. For now she is taking the intravenous amiodarone which is the best drug for her now to try to reduce the heart rate for the atrial fibrillation and hopefully reestablish sinus rhythm and maintain sinus rhythm. ADDENDUM: The patient's left ventricular function is normal on echocardiogram, but she has enlarged atria indicating she has evidence of diastolic heart failure. Job ID: [id number]
[2020-05-18] MEDS: Aspirin 81 mg Enteric Coated Tablet PO SCH ×2 (09:11→20:42)
[2020-05-18] MEDS: Gabapentin 100 MG CAP PO SCH ×2 (09:11→20:42)
[2020-05-18] MEDS: Famotidine/PF 20 mg/2ml Vial SLOW IVP SCH (09:12)
[2020-05-18] MEDS: Polyethylene Glycol 3350 17 GM Packet PO SCH (09:12)
[2020-05-18] MEDS: Senokot S 8.6-50 MG TAB PO SCH ×2 (09:12→20:44)
[2020-05-18] MEDS: Potassium Chloride 20 MEQ TAB PO SCH (09:16)
--- NOTE | 2020-05-18 10:35 | PRG ---
DATE OF SERVICE: 05/18/2020 SUBJECTIVE: Ms. Lackey is in good spirits today. No chest pain or pressure. No shortness of breath. OBJECTIVE: VITAL SIGNS: Her blood pressure 118/70, pulse is between 110 and 120, atrial fibrillation. LUNGS: Clear. CARDIAC: Irregularly irregular. ABDOMEN: Soft, nontender. EXTREMITIES: No edema. ASSESSMENT: 1. Atrial fibrillation, now persistent. 2. Status post hip fracture with subsequent repair. PLAN: 1. Resume diltiazem. 2. Continue amiodarone intravenously today and probably change to oral tomorrow. 3. Proceed with rehab. Job ID: [id number]
--- NOTE | 2020-05-18 20:11 | PRG ---
DATE OF SERVICE: 05/18/2020 SUBJECTIVE: The patient was seen this morning during rounds. She was sitting up in bed with no signs of acute distress. She is postoperative day #1, status post fixation of a right intertrochanteric femur fracture. The patient appears to be rate controlled now on her amiodarone drip, tolerating a diet. Working with PT. OBJECTIVE: VITAL SIGNS: Temperature 97.9, pulse 109, respirations 18, oxygen saturation 97% on room air, blood pressure 114/83. GENERAL: A well-appearing elderly female, sitting up in bed with no signs of acute distress. PULMONARY: Equal chest rise and fall. Clear breath sounds bilaterally. No signs of acute respiratory distress. CARDIAC: Irregular rate and rhythm. GI: Abdomen is soft, nontender, nondistended. EXTREMITIES: 2+ pulses in all extremities. Gross motor and sensation are intact. No significant swelling noted. NEUROLOGIC: GCS 15. LABORATORY FINDINGS: White count 8.8, hemoglobin 10.1, hematocrit 31.2, platelets 282. Sodium 128, potassium 5.0, chloride 97, bicarb 23, BUN 28, creatinine 0.95, glucose 197, phosphorus 3.4, magnesium 2.1. DIAGNOSTIC FINDINGS: There are no new diagnostic findings to report. ASSESSMENT: 1. Status post mechanical fall from standing, on Eliquis. 2. Right intertrochanteric femur fracture, status post repair. 3. Atrial fibrillation, rapid ventricular response, now rate controlled. 4. Acute kidney injury, resolved. 5. Acute on chronic hyponatremia, worsening. 6. History of hypertension, chronic obstructive pulmonary disease, atrial fibrillation, congestive heart failure, arthritis, bleeding ulcers. PLAN: Continue current diet. 1 L free water restriction. Continue physical and occupational therapy. Continue amiodarone drip. Dr. West to make changes to patient's medications for rate control. Continue all other home medications. The patient is pending discharge, likely will go to SNF upon her request. The patient was seen and evaluated by Dr. Haynes and myself this morning during rounds. Job ID: [id number]
[2020-05-19] MEDS: Acetaminophen 325 MG TAB PO SCH ×4 (00:18→20:41)
--- NOTE | 2020-05-19 00:37 | PRG ---
DATE OF SERVICE: 05/18/2020 SUBJECTIVE: The patient was seen during evening rounds on the telemetry floor. The patient is awake, alert, in no distress. The patient is postop day #1 status post fixation of her right intertrochanteric femur fracture. The patient is currently in atrial fibrillation, on the rivet spinner with rate in the one teens to 120. The patient voices no complaints of chest pain or shortness of breath. The patient reports that her pain is well controlled. The patient remains on amiodarone drip and was started on diltiazem p.o. OBJECTIVE: VITAL SIGNS: Stable, afebrile. GENERAL: Frail, elderly female, awake, alert, in no distress. PULMONARY: Equal chest rise and fall. Bilateral breath sounds clear. No wheezing, rales, or rhonchi. CARDIAC: Irregularly irregular rate and rhythm. No pedal edema. ABDOMEN: Soft, nontender, nondistended. EXTREMITIES: Neurovascularly intact x4. Right hip dressing is clean, dry, and intact. Right arm with bandage in place due to superficial skin tear. NEUROLOGIC: No focal deficits, GCS 15. ASSESSMENT: 1. Status post mechanical fall from standing, on Eliquis. 2. Right intertrochanteric femur fracture, postop day #1. 3. Atrial fibrillation with rapid ventricular response, improved rate control. 4. Acute kidney injury, resolved. 5. Acute on chronic hyponatremia. 6. History of hypertension, chronic obstructive pulmonary disease, atrial fibrillation, congestive heart failure, arthritis, and bleeding ulcers. PLAN: Continue current diet, pain regimen. Continue 1 L free water restriction for hyponatremia. Continue physical and occupational therapy. Continue amiodarone drip and recommendations from Cardiology. The patient is pending placement at this time. Plan was discussed with the patient, who agrees. Job ID: [id number]
[2020-05-19 04:42] LABS: #Lymphocytes 1.2 thou/uL (1.20-3.40); #Monocytes 0.9 thou/uL (0.11-0.59); #Neutrophils 8.2 thou/uL (1.40-6.50); %Eosinophils 0.2 % (0.0-10.0); %Lymphocytes 11.2 % (21.0-51.0); %Monocytes 8.7 % (0.0-10.0); %Neutrophils 79.9 % (42.0-75.0); Hemoglobin 9.4 g/dL (12.0-16.0); Mean Corpuscular HGB CONC 32.9 g/dL (32.0-36.0); Mean Corpuscular Hemoglobin 31.3 pg (27.0-31.0); Mean Corpuscular Volume 95.1 fL (78.0-98.0); Mean Platelet Volume 7.6 fL (7.4-10.4); Platelet Count 290 thou/uL (130-400); RBC Distribution Width 13.8 % (11.5-14.5); Red Blood Cell (RBC) Count 2.99 mill/uL (4.20-5.40); White Blood Cell (WBC) Count 10.3 thou/uL (4.8-10.8)
[2020-05-19 05:09] LABS: Anion Gap 13 mmol/L (10-20); BUN (Urea Nitrogen) 28 mg/dL (9.8-20.1); Calc. Creatinine Clearance 33 mL/min (70-130); Calcium 8.6 mg/dL (7.8-10.44); Carbon Dioxide 26 mmol/L (23-31); Chloride 99 mmol/L (98-107); Estimated GFR-MDRD 59; Glucose 119 mg/dL (83-110); Potassium 5.1 mmol/L (3.5-5.1); Sodium 133 mmol/L (136-145)
[2020-05-19 05:13] LABS: Phosphorus 3.2 mg/dL (2.3-4.7)
[2020-05-19] MEDS: Senokot S 8.6-50 MG TAB PO SCH ×2 (09:15→20:42)
[2020-05-19] MEDS: Polyethylene Glycol 3350 17 GM Packet PO SCH (09:15)
[2020-05-19] MEDS: Gabapentin 100 MG CAP PO SCH ×2 (09:16→20:41)
[2020-05-19] MEDS: Apixaban 2.5 MG TAB PO SCH ×2 (09:16→20:41)
[2020-05-19] MEDS: Amiodarone 200 MG TAB PO SCH ×3 (09:16→20:41)
--- NOTE | 2020-05-19 09:48 | PRG ---
DATE OF SERVICE: 05/19/2020 SUBJECTIVE: Ms. Lackey is doing well. She is sitting up in bed. She is eating. She is hungry. No chest pain or chest tightness. OBJECTIVE: VITAL SIGNS: Blood pressure 124/80, pulse is still between 100 and 120, atrial fibrillation. LUNGS: Clear. CARDIAC: Irregularly irregular. ABDOMEN: Soft, nontender. EXTREMITIES: There is no edema. ASSESSMENT: 1. Atrial fibrillation, persistent. 2. Status post recent hip surgery with repair. 3. Underweight, BMI is 19. PLAN: 1. Increase Cardizem back to 180 mg a day. 2. Transition to oral amiodarone. Hopefully, eventually can get her back in sinus rhythm. 3. Continue apixaban. Job ID: [id number]
[2020-05-19] MEDS: Amiodarone 450 MG in Dextrose 5% in Water 250 ML IVPB SCH (12:11)
--- NOTE | 2020-05-19 14:01 | PRG ---
DATE OF SERVICE: 05/19/2020 This is Chloe Garcia PA-C dictating a report for Dr. Haynes. SUBJECTIVE: The patient was seen this morning during rounds. She was sitting up in bed with no signs of acute distress. Reported no acute events. Pain is well controlled. Tolerating a diet. Working with PT. The patient has atrial fibrillation with a rate in the 100s overnight. Dr. West adjusting medications for rate control. OBJECTIVE: VITAL SIGNS: Temperature 97.5, pulse 116, respirations 18, oxygen saturation 97% on room air, and blood pressure 124/84. GENERAL: Well-appearing elderly female, sitting up in bed with no signs of acute distress. PULMONARY: Equal chest rise and fall. Clear breath sounds bilaterally. No signs of acute respiratory distress. CARDIAC: Tachycardic rhythm. No murmurs, gallops, or rubs. GI: Abdomen is soft, nontender, nondistended. EXTREMITIES: 2+ pulses in all extremities. Gross motor and sensation intact. No significant swelling noted. NEUROLOGIC: GCS 15. LABORATORY FINDINGS: White count 10.3, hemoglobin 9.7, hematocrit 28.4, and platelets 290. Sodium 133, potassium 5.1, chloride 99, bicarb 26, BUN 29, creatinine 0.91, glucose 119, phosphorus 3.2, and magnesium 2.0. DIAGNOSTIC FINDINGS: There are no new diagnostic findings to report. ASSESSMENT: 1. Status post right intertrochanteric femur fracture. 2. Atrial fibrillation, rapid ventricular response with history of atrial fibrillation. 3. Acute kidney injury, resolved. 4. History of hypertension, chronic obstructive pulmonary disease, atrial fibrillation, congestive heart failure, arthritis, and bleeding ulcers. PLAN: Continue current diet and pain regimen. Continue physical and occupational therapy. Dr. West to titrate medications for better rate control. She is pending discharge to a shelter facility. Restart Eliquis today. Once the patient's rate is controlled, we will discharge the patient. Otherwise, she is ready for discharge. This patient was seen and evaluated by Dr. Haynes and myself this morning during rounds. Job ID: [id number]
--- NOTE | 2020-05-19 16:04 | PRG ---
DATE OF SERVICE: 05/19/2020 SUBJECTIVE: Lenore is an 84-year-old female who is now postop day 2 from a right hip dynamic hip screw fixation for an intertrochanteric fracture. She has only stood at bedside, ambulated approximately 6 feet, but she is in good spirits today. OBJECTIVE: VITAL SIGNS: Temperature 97.5, pulse 116, respiratory rate 18, O2 saturation is 97% on room air. GENERAL: She is alert and oriented to person, place, time, situation, responsive, appropriate to examiner, quite conversive as usually is the case with her. Her incision is clean. No strikethrough. No malrotation or shortening. LABORATORY DATA: Hemoglobin and hematocrit are 9.4 and 28.4. IMPRESSION: An 84-year-old female postop day 2, right hip dynamic hip screw fixation, slow at reaching landmarks, but this is a very brittle but spry lady for her age. Continue current care. Probable discharge to a skilled facility within the next 24 to 48 hours. Job ID: [id number]
[2020-05-20] MEDS: Acetaminophen 325 MG TAB PO SCH ×4 (01:15→17:21)
[2020-05-20 04:44] LABS: #Basophils 0.1 thou/uL (0.0-0.2); #Eosinphils 0.1 thou/uL (0.0-0.7); #Lymphocytes 1.6 thou/uL (1.20-3.40); #Monocytes 0.8 thou/uL (0.11-0.59); #Neutrophils 6.2 thou/uL (1.40-6.50); %Basophils 0.8 % (0.0-1.0); %Eosinophils 1.2 % (0.0-10.0); %Lymphocytes 18.3 % (21.0-51.0); %Monocytes 8.7 % (0.0-10.0); Hemoglobin 9.2 g/dL (12.0-16.0); Mean Corpuscular HGB CONC 32.7 g/dL (32.0-36.0); Mean Corpuscular Hemoglobin 31.2 pg (27.0-31.0); Mean Corpuscular Volume 95.4 fL (78.0-98.0); Mean Platelet Volume 7.3 fL (7.4-10.4); Platelet Count 323 thou/uL (130-400); Red Blood Cell (RBC) Count 2.95 mill/uL (4.20-5.40); White Blood Cell (WBC) Count 8.7 thou/uL (4.8-10.8)
[2020-05-20 05:08] LABS: Anion Gap 10 mmol/L (10-20); BUN (Urea Nitrogen) 23 mg/dL (9.8-20.1); Calc. Creatinine Clearance 39 mL/min (70-130); Calcium 8.4 mg/dL (7.8-10.44); Carbon Dioxide 29 mmol/L (23-31); Chloride 100 mmol/L (98-107); Estimated GFR-MDRD 70; Glucose 100 mg/dL (83-110); Phosphorus 3.2 mg/dL (2.3-4.7); Potassium 4.5 mmol/L (3.5-5.1); Sodium 134 mmol/L (136-145)
[2020-05-20] MEDS ORDERED: PHOS-NAK 1 PKT PACK PO SCH (08:00)
[2020-05-20] MEDS: Apixaban 2.5 MG TAB PO SCH ×2 (08:07→20:33)
[2020-05-20] MEDS: Amiodarone 200 MG TAB PO SCH ×3 (08:07→20:33)
[2020-05-20] MEDS: Gabapentin 100 MG CAP PO SCH ×2 (08:07→20:32)
[2020-05-20] MEDS: Polyethylene Glycol 3350 17 GM Packet PO SCH ×2 (08:08→17:24)
[2020-05-20] MEDS: Senokot S 8.6-50 MG TAB PO SCH ×2 (08:08→17:23)
--- NOTE | 2020-05-20 13:03 | EKG ---
Test Reason : Blood Pressure : / mmHG Vent. Rate : 097 BPM Atrial Rate : 394 BPM P-R Int : 000 ms QRS Dur : 078 ms QT Int : 334 ms P-R-T Axes : 000 -56 062 degrees QTc Int : 424 ms Undetermined rhythm Left axis deviation Low voltage QRS Septal infarct , age undetermined Abnormal ECG Confirmed by LILLIAN CRAWFORD DO ([id number]), medical editor YOKASTA YANCEY ([id number]) on 05/20/2020 1:03:15 PM Referred By: Confirmed By:LILLIAN CRAWFORD DO
--- NOTE | 2020-05-20 13:15 | PRG ---
DATE OF SERVICE: 05/20/2020 SUBJECTIVE: Ms. Lackey is feeling better. She said she is getting up and around better OBJECTIVE: VITAL SIGNS: Her blood pressure is 118/76, pulse is 100 and it is irregular. LUNGS: Clear. CARDIAC: Irregularly irregular. ABDOMEN: Soft, nontender. EXTREMITIES: No edema. ASSESSMENT: 1. Status post hip surgery for hip fracture. 2. Atrial fibrillation with rapid rate, persistent. 3. History of some chronic obstructive pulmonary disease. PLAN: 1. She is on diltiazem. 2. Amiodarone. 3. Okay to be transferred back to long-term area or the rehab amiodarone to 200 mg once a day at the time of discharge. Job ID: [id number]
--- NOTE | 2020-05-20 17:03 | PRG ---
DATE OF SERVICE: 05/20/2020 SUBJECTIVE: The patient was seen this morning during rounds. She was sitting up in bed with no signs of acute distress. Tolerating her diet. Working with PT. Reports pain control. OBJECTIVE: VITAL SIGNS: Temperature 98.7, pulse 104, respirations 19, oxygen saturations 95% on room air, and blood pressure 117/62. GENERAL: Well-appearing elderly female, sitting up in bed with no signs of acute distress. PULMONARY: Equal chest rise and fall. Clear breath sounds bilaterally. No signs of acute respiratory distress. CARDIAC: Regular rate and rhythm. GI: Abdomen is soft, nontender, and nondistended. EXTREMITIES: 2+ pulses in all extremities. Gross motor and sensation intact. No significant swelling noted. NEUROLOGIC: GCS is 15. LABORATORY FINDINGS: White count 8.7, hemoglobin 9.2, hematocrit 28.1, and platelets 323. Sodium 134, potassium 4.5, chloride 100, bicarb 29, BUN 23, creatinine 0.79, glucose 100, phosphorus 3.2, and magnesium 2.0. ASSESSMENT: 1. Status post mechanical fall at home, on qu. 2. Right intertrochanteric femur fracture, status post repair. 3. Atrial fibrillation, rapid ventricular response, now rate controlled. 4. Acute kidney injury, resolved. 5. History of hypertension, chronic obstructive pulmonary disease, atrial fibrillation, congestive heart failure, arthritis, and bleeding ulcers. PLAN: Continue current diet and pain regimen. Continue diltiazem and amiodarone p.o. per Dr. West. The patient is ready for discharge at this time. She has been accepted to halfway facility and they will be ready to accept her on Friday. Job ID: [id number]
--- NOTE | 2020-05-20 23:15 | ULT ---
RIGHT LOWER EXTREMITY VENOUS DOPPLER: Date: 05/20/2020 PROVIDED CLINICAL HISTORY: Pain. FINDINGS: Kauffman scale and color Doppler sonography with spectral analysis was performed of the right common femo ral, femoral, popliteal, posterior tibial, greater saphenous, and profunda femoral veins, demonstrati ng a normal sonographic appearance to each. IMPRESSION: No sonographic evidence for right lower extremity deep venous thrombosis. POS: FRANCISCO
[2020-05-21] MEDS: Acetaminophen 325 MG TAB PO SCH ×4 (00:50→18:05)
--- NOTE | 2020-05-21 02:24 | PRG ---
DATE OF SERVICE: 05/20/2020 SUBJECTIVE: The patient remains on the telemetry floor, awake, alert, in no distress. The patient reports that her right hip pain is well controlled. The patient does complain of some right knee pain, right calf pain, and swelling. The patient states she noticed it a couple of days ago. The patient has been participating with physical therapy. The patient remains in atrial fibrillation with rate in the one-teens currently. The patient denies any chest pain or shortness of breath. OBJECTIVE: VITAL SIGNS: Stable, afebrile. GENERAL: Elderly female, sitting up in bed, talking on the phone, in no acute distress. PULMONARY: Equal chest rise and fall, breath sounds clear. CARDIAC: Irregularly irregular rate, mildly tachycardic. EXTREMITIES: 2+ pulses in all extremities, gross motor and sensation intact. Right hip dressing is clean, dry, and intact. Right lower extremity swelling from the knee to the ankle. Right lower extremity is warm. NEUROLOGIC: No focal deficits. DIAGNOSTIC DATA: 1. Right lower extremity vascular ultrasound, negative for deep venous thrombosis. 2. Right knee and hip x-ray, pending. IMPRESSION: 1. Status post mechanical fall at home, on Eliquis. 2. Right intertrochanteric femur fracture, status post repair. 3. Atrial fibrillation, rapid ventricular response, rate controlled. 4. Acute kidney injury, resolved. 5. Right lower extremity edema. 6. History of hypertension, chronic obstructive pulmonary disease, atrial fibrillation, congestive heart failure, arthritis, and bleeding ulcers. PLAN: Continue current diet and pain regimen. Continue to increase physical and occupational therapy. Continue diltiazem and amiodarone for rate control. The patient has been instructed to elevate her right lower extremity to help with the edema. Pending x-rays at this time. The patient has been accepted to alf facility and will accept the patient on Friday. Job ID: [id number]
[2020-05-21] MEDS: Amiodarone 200 MG TAB PO SCH ×3 (08:45→21:11)
[2020-05-21] MEDS: Apixaban 2.5 MG TAB PO SCH ×2 (08:45→21:11)
[2020-05-21] MEDS: Gabapentin 100 MG CAP PO SCH ×2 (08:45→21:11)
[2020-05-21] MEDS: Polyethylene Glycol 3350 17 GM Packet PO SCH (08:46)
[2020-05-21] MEDS: Senokot S 8.6-50 MG TAB PO SCH ×2 (08:46→21:11)
--- NOTE | 2020-05-21 11:03 | RAD ---
RIGHT TIBIA AND FIBULA TWO VIEWS: HISTORY: Swelling and pain in the right leg. COMPARISON: None. FINDINGS: Two views of the right tibia and fibula show no evidence of acute fracture or dislocation. Moderate d iffuse soft tissue swelling is seen. Vascular calcifications are seen. IMPRESSION: No evidence of acute osseous abnormality. POS: EAA
--- NOTE | 2020-05-21 11:04 | RAD ---
RIGHT KNEE THREE VIEWS: HISTORY: Right knee pain and swelling. FINDINGS: Three views of the right knee show no evidence of acute fracture or dislocation. Moderate tricompartm ent joint space narrowing and osteophyte formation are seen, consistent with osteoarthritis. There ap pears to be calcification of the menisci. There is a small knee effusion. Vascular calcifications are seen. IMPRESSION: Degenerative changes of the right knee without acute osseous abnormality. POS: EAA
--- NOTE | 2020-05-21 14:51 | PRG ---
DATE OF SERVICE: 05/21/2020 SUBJECTIVE: Ms. Lackey is resting comfortably. No complaints. She feels fine. She says she has not had a bowel movement. Otherwise, feels to do well. OBJECTIVE: VITAL SIGNS: Blood pressure 114/76, pulse 108 and irregular. LUNGS: Clear. CARDIAC: Irregularly irregular. ABDOMEN: Soft, nontender. ASSESSMENT: 1. Atrial fibrillation with improved ventricular response, rate controlled. 2. Status post surgery in her hip. PLAN: The patient could be released home from a cardiac standpoint tomorrow if that is felt to be appropriate from her other medical condition. At the time of discharge, we will reduce amiodarone to 200 mg once a day only and continue the diltiazem. Job ID: [id number]
--- NOTE | 2020-05-21 18:24 | PRG ---
DATE OF SERVICE: 05/21/2020 SUBJECTIVE: The patient remains in the telemetry floor. She is status post ground level fall, on when she sustained a right intertrochanteric femur fracture. She has undergone operative intervention for this and has tolerated well. She continues to work with Physical and Occupational Therapy. Her atrial fibrillation with rapid ventricular response is rate controlled and she has been transitioned to oral medications. At this time, she is scheduled for discharge tomorrow to a snf facility and this appears to be appropriate. PHYSICAL EXAMINATION: VITAL SIGNS: Temperature is 97.8, heart rate 104, respirations 20, oxygen saturation 97% on room air, and blood pressure is 118/76. GENERAL: The patient is resting comfortably in bed. She is awake, alert, conversant, appropriate. HEENT: Unremarkable. LUNGS: Clear to auscultation bilaterally. HEART: Irregularly irregular consistent with her atrial fibrillation. ABDOMEN: Soft, nontender with active bowel sounds. EXTREMITIES: Neurovascularly intact x4. DIAGNOSTIC DATA: There are no labs or radiographs reviewed this morning. ASSESSMENT: 1. Status post mechanical fall at home, on . 2. Status post open reduction and internal fixation of right intertrochanteric femur fracture. 3. Atrial fibrillation with rapid ventricular response, now rate controlled on oral medications. 4. Acute kidney injury, resolved. 5. History of hypertension, chronic obstructive pulmonary disease, atrial fibrillation, congestive heart failure, arthritis, and bleeding ulcers. PLAN: Plan will be to continue supportive care, remain on the telemetry floor and likely discharge to skilled facility tomorrow. Job ID: [id number]
[2020-05-22] MEDS: Acetaminophen 325 MG TAB PO SCH ×3 (02:25→12:03)
[2020-05-22] MEDS ORDERED: Spironolactone 25 MG TAB PO SCH (08:00)
--- NOTE | 2020-05-22 08:27 | PRG ---
DATE OF SERVICE: 05/22/2020 SUBJECTIVE: Ms. Lackey is doing well. No complaints. OBJECTIVE: VITAL SIGNS: Blood pressure 119/77, pulse is anywhere between 100 to 120, atrial fibrillation. LUNGS: Clear. CARDIAC: Irregularly irregular. ABDOMEN: Soft, nontender. EXTREMITIES: No edema on the left. She has some edema on right leg with the side, she had her hip fracture. ASSESSMENT: 1. Atrial fibrillation, persistent. 2. History of diastolic heart failure. PLAN: 1. Resume torsemide 20 mg a day. 2. Spironolactone 25 mg a day. 3. Continue Cardizem current dose. 4. When she is discharged, go ahead and leave her on amiodarone 200 mg once a day. If she is still in fibrillation, we will see her back in the office. We will bring her back for cardioversion. Job ID: [id number]
[2020-05-22 08:54] VITALS: TEMP 97.8
[2020-05-22] MEDS: Gabapentin 100 MG CAP PO SCH (09:40)
[2020-05-22] MEDS: Amiodarone 200 MG TAB PO SCH ×2 (09:40→15:27)
[2020-05-22] MEDS: Apixaban 2.5 MG TAB PO SCH (09:40)
[2020-05-22] MEDS: Senokot S 8.6-50 MG TAB PO SCH (09:40)
[2020-05-22] MEDS: Polyethylene Glycol 3350 17 GM Packet PO SCH (09:40)
--- NOTE | 2020-05-22 12:08 | PRG ---
DATE OF SERVICE: 05/21/2020 SUBJECTIVE: Lenore is an 84-year-old female, postop day 4 from a right hip hemiarthroplasty. She is doing relatively well. She has no complaints and she is feeling better. She is pending placement at this time. OBJECTIVE: Temperature 99, pulse 80, respiratory rate is 20 and nonlabored. She is alert, responsive, appropriate, and conversive with examiner as usual. Her incision is clean. No erythema. No strike through. Dressing is removed and scant drainage is noted, but again appears clean. Drury are intact. No malrotation or shortening of the right lower extremity is noted. IMPRESSION: 1. An 84-year-old female, postop day 4 right hip hemiarthroplasty. 2. Atrial fibrillation with rapid ventricular response. PLAN: Continue to follow, placement pending. Job ID: [id number]
[2020-05-22 12:10] VITALS: BP 121/86
--- NOTE | 2020-05-22 13:24 | PDOC.FMACP ---
Advance Care Planning - Problem (1) Palliative care encounter Status: Acute Code(s): Z51.5 - ENCOUNTER FOR PALLIATIVE CARE (2) Acute on chronic diastolic CHF (congestive heart failure) Status: Acute Code(s): I50.33 - ACUTE ON CHRONIC DIASTOLIC (CONGESTIVE) HEART FAILURE (3) Acute on chronic respiratory failure with hypoxia Status: Acute Code(s): J96.21 - ACUTE AND CHRONIC RESPIRATORY FAILURE WITH HYPOXIA (4) Anticoagulant long-term use Status: Acute Code(s): Z79.01 - CORRECTION (CURRENT) USE OF ANTICOAGULANTS (5) Cachexia associated with cardiac disease Status: Acute Code(s): I51.9 - HEART DISEASE, UNSPECIFIED - Note Participants: patient, family, palliative care Summary: Palliative Care revisited Advanced Care Planning with patient and her daughter, allowed for an opportunity to decline. The diagnosis, prognosis and goals of care were discussed. Appropriate forms and documentation to accomplish the goals of care were discussed, reviewed documents on chart including Medical Power of Fiscal Clerk, Directive to Physicians and OOHDNAR. OOHDNAR not completed accurately, Jennifer Benavides assisted in appropriate completion of form. Copies made and placed on chart. All questions were answered. Time Spent (mins): 30
--- NOTE | 2020-05-23 03:54 | DIS ---
DATE OF ADMISSION: 05/15/2020 DATE OF DISCHARGE: 05/22/2020 ADMISSION DIAGNOSES: 1. Status post ground-level fall. 2. Right intertrochanteric femur fracture. 3. History of chronic obstructive pulmonary disease. 4. Congestive heart failure. 5. Atrial fibrillation, on Eliquis. CONSULTATIONS: Orthopedics, Dr. Boudreaux, and Cardiology, Dr. West. PROCEDURE: Dynamic hip screw, right intertrochanteric femur fracture. SUMMARY: The patient is an 84-year-old woman, who suffered a right intertrochanteric femur fracture after falling at home. She was brought to the emergency department, where she underwent evaluation and examination and was noted to have the above injuries. Due to the patient's Eliquis use, her surgery was delayed for a short period, but then, she was subsequently able to undergo her procedure. Postoperatively, she did have some atrial fibrillation with rapid ventricular response, requiring IV amiodarone for a short period, which was transitioned to oral pain medications, and by the time she was discharged, she was rate controlled. The patient postoperatively otherwise did well. She remained on the telemetry floor during her stay. She worked with Physical and Occupational Therapy. She was tolerating a diet. Her pain was controlled. DISPOSITION: She was discharged to a residential facility, specifically [facility]. FOLLOWUP: The patient will follow up with Dr. Boudreaux in 2 to 3 weeks, sooner as needed. The patient will follow up with her feed management advisor in 1 to 2 weeks, sooner as needed. The patient may follow up with the [facility] as needed. DISCHARGE MEDICATIONS: The patient was discharged home with instructions to return to use of all of her home medications, and she was discharged with a prescription for tramadol for pain. Job ID: [id number]
[2020-05-23] MEDS ORDERED: Torsemide 20 MG TAB PO SCH (09:00)
== END 2020-05-22 15:39 | DRG 480 ==
LOC: ERS 18:23 → 2NO 21:23
PROVIDERS: ADMIT Orthopaedic Surgery; ATTEND Specialist
PROC: 0QS604Z Reposition Right Upper Femur with Internal Fixation Device, Open Approach (ICD-10-PCS; principal; 2020-05-17)
DX: S72.141A Displaced intertrochanteric fracture of right femur, initial encounter for closed fracture (principal); I50.33 Acute on chronic diastolic (congestive) heart failure; J96.21 Acute and chronic respiratory failure with hypoxia; E46 Unspecified protein-calorie malnutrition; Z68.1 Body mass index [BMI] 19.9 or less, adult; I48.21 Permanent atrial fibrillation; N17.9 Acute kidney failure, unspecified; E87.1 Hypo-osmolality and hyponatremia; R64 Cachexia; Z66 Do not resuscitate; Z51.5 Encounter for palliative care; M19.90 Unspecified osteoarthritis, unspecified site; F17.290 Nicotine dependence, other tobacco product, uncomplicated; W01.0XXA Fall on same level from slipping, tripping and stumbling without subsequent striking against object, initial encounter; I11.0 Hypertensive heart disease with heart failure; J44.9 Chronic obstructive pulmonary disease, unspecified; Z90.49 Acquired absence of other specified parts of digestive tract; Z79.01 Long term (current) use of anticoagulants; Z79.899 Other long term (current) drug therapy; Z91.14 Patient's other noncompliance with medication regimen
CPT/HCPCS: 36415; 71045; 72192; 76000; 80048; 80053; 80076; 80162; 82533; 83735; 83880; 84100; 84443; 85007; 85025; 85027; 85610; 85730; 86850; 86870; 86900; 86901; 86922; 93005; 93306; 96374; C1713; G0390; J0282; J0690; J2001; J2270; J2704; J2795; J3010; J3475; J3490; J7070

== ENCOUNTER 2020-06-14 12:07 | Inpatient (IN) | payer MEDICARE, OTHER ==
[~2020-06-14 12:07] MED LIST: Iopamidol-370 76% 500 ML 1 ML ONE
[2020-06-14 12:39] LABS: #Basophils 0.1 thou/uL (0.0-0.2); #Lymphocytes 1.2 thou/uL (1.20-3.40); #Monocytes 0.6 thou/uL (0.11-0.59); #Neutrophils 7.5 thou/uL (1.40-6.50); %Basophils 0.6 % (0.0-1.0); %Eosinophils 0.3 % (0.0-10.0); %Lymphocytes 12.9 % (21.0-51.0); %Monocytes 6.3 % (0.0-10.0); %Neutrophils 79.9 % (42.0-75.0); Hemoglobin 9.9 g/dL (12.0-16.0); Mean Corpuscular HGB CONC 31.7 g/dL (32.0-36.0); Mean Corpuscular Hemoglobin 31.4 pg (27.0-31.0); Mean Corpuscular Volume 99.1 fL (78.0-98.0); Mean Platelet Volume 6.4 fL (7.4-10.4); Platelet Count 537 thou/uL (130-400); RBC Distribution Width 15.8 % (11.5-14.5); Red Blood Cell (RBC) Count 3.16 mill/uL (4.20-5.40); White Blood Cell (WBC) Count 9.4 thou/uL (4.8-10.8)
[2020-06-14 13:02] LABS: ALT (SGPT) Less than 7 U/L (8-55); AST (SGOT) 11 U/L (5-34); Albumin 3.4 g/dL (3.4-4.8); Alkaline Phosphatase 167 U/L (40-110); Anion Gap 15 mmol/L (10-20); BUN (Urea Nitrogen) 32 mg/dL (9.8-20.1); Bilirubin, Total 0.7 mg/dL (0.2-1.2); Calc. Creatinine Clearance 0 mL/min (70-130); Calcium 8.7 mg/dL (7.8-10.44); Carbon Dioxide 27 mmol/L (23-31); Chloride 97 mmol/L (98-107); Estimated GFR-MDRD 37; Globulin 3.8 g/dL (2.4-3.5); Glucose 87 mg/dL (83-110); Potassium 4.2 mmol/L (3.5-5.1); Protein, Total 7.2 g/dL (6.0-8.3); Sodium 135 mmol/L (136-145)
--- NOTE | 2020-06-14 13:05 | RAD ---
XR Chest 1 View Portable HISTORY: Sepsis COMPARISON: 05/15/2020 FINDINGS: The heart size stable. The aorta is tortuous. Evidence of old granulomatous disease is again seen. Th ere has been interval development of bilateral pleural effusions, right larger than left. No pneumothoraces are seen. There is no evidence of kassi pulmonary edema.
[2020-06-14] MEDS ORDERED: Metoprolol Tartrate 5 MG/5 ML VIAL ONE (13:22)
[2020-06-14] MEDS ORDERED: methylPREDNISolone Sod Succ/PF 125 MG/2 ML VIAL ONE (14:05)
[2020-06-14] MEDS ORDERED: Magnesium 2 GM/50 ML BAG (IN WATER) ONE (14:05)
--- NOTE | 2020-06-14 15:18 | PDOC.FPRHP ---
- History of Present Illness Chief Complaint: hypoxia History of Present Illness: 84 yo F w pmhx sig for copd, afib, HFpEF earlier today she was found to be hypoxic into the 70s and tachypneic at [facility]. Sent to ED at that time, with no complaints on my exam. She reports she was feeling well throughout this spell and says its her afib causing it. she denies any sob, LOLIS, REAL, orthopnea, PND, chest pain, cough, wheeze, fever, or dysuria. ED Course: cbc, cmp, trop, bnp, cxr 5mg lopressor - Allergies/Adverse Reactions Allergies Allergy/AdvReac Type Severity Reaction Status Date / Time No Known Allergies Allergy Verified 05/15/20 23:11 - Home Medications Medication Instructions Recorded Confirmed Type Apixaban [Eliquis] 2.5 mg PO BID #60 tab 09/23/18 05/15/20 Rx Melatonin 3 mg PO HSPRN PRN #30 tab 09/23/18 05/15/20 Rx Spironolactone [Aldactone] 25 mg PO QAM-WM #30 tab 09/14/19 05/15/20 Rx Torsemide [Demadex] 40 mg PO DAILY #60 tab 09/14/19 05/15/20 Rx Diltiazem HCl [Dilt-XR] 180 mg PO DAILY 05/15/20 05/15/20 History Mirtazapine 15 mg PO DAILY 05/15/20 05/15/20 History Acetaminophen [Tylenol Regular 650 mg PO Q6HR tab 05/22/20 Rx Strength] Amiodarone [Cordarone] 200 mg PO DAILY 30 Days tab 05/22/20 Rx Gabapentin [Neurontin] 100 mg PO BID cap 05/22/20 Rx traMADol HCl [Ultram] 50 mg PO Q6H PRN #30 tab 05/22/20 Rx - History PMHx:afib, HFpEF, HTN, COPD PSHx: ORIF R hip, hysterctomy FHx:NC Social:former smoker/daily drinker, resides at [facility] - Review of Systems General: denies: fever/chills, weight/appetite/sleep changes Eyes: denies: vision changes ENT: denies: nasal congestion, rhinorrhea Respiratory: denies: cough, shortness of breath Cardiovascular: reports: palpitation. denies: chest pain, edema, paroxysmal nocturnal dyspnea, orthopnea Gastrointestinal: denies: nausea, vomiting, diarrhea Genitourinary: denies: incontinence Skin: denies: rashes, lesions Musculoskeletal: reports: pain Neurological: denies: numbness, syncope - Vital signs 118/77, Pulse: 110, Resp: 26, Temp: 98.2 (Oral), Pain: 0, O2 sat: 94 on (2L Oxygen) - Physical Exam Constitutional: NAD, awake, alert and oriented HEENT: normocephalic and atraumatic, grossly normal vision, grossly normal hearing Neck: supple, trachea midline Chest: no-tender to palpation, no lesions -Heart: irregular, distant heart and lung sounds Lungs: no respiratory distress, no wheezing, no retractions Abdomen: soft, non-tender Musculoskeletal: normal structure, normal tone Neurological: no focal deficit, CN II-XII intact Skin: no rash/lesions, good turgor Heme/Lymphatic: no unusual bruising or bleeding Psychiatric: normal mood and affect FMR H&P: Results - Labs Result Diagrams: 06/14/20 12:26 06/14/20 12:26 Lab results: WBC 9.4 thou/uL (4.8-10.8) 06/14/20 12:26 Hgb 9.9 g/dL (12.0-16.0) L 06/14/20 12:26 Hct 31.3 % (36.0-47.0) L 06/14/20 12:26 MCV 99.1 fL (78.0-98.0) H 06/14/20 12:26 Plt Count 537 thou/uL (130-400) H 06/14/20 12:26 Neutrophils % 79.9 % (42.0-75.0) H 06/14/20 12:26 Sodium 135 mmol/L (136-145) L 06/14/20 12:26 Potassium 4.2 mmol/L (3.5-5.1) 06/14/20 12:26 Chloride 97 mmol/L (98-107) L 06/14/20 12:26 Carbon Dioxide 27 mmol/L (23-31) 06/14/20 12:26 BUN 32 mg/dL (9.8-20.1) H 06/14/20 12:26 Creatinine 1.38 mg/dL (0.6-1.1) H 06/14/20 12:26 Glucose 87 mg/dL (83-110) 06/14/20 12:26 Lactic Acid 1.1 mmol/L (0.5-2.2) 06/14/20 12:26 Calcium 8.7 mg/dL (7.8-10.44) 06/14/20 12:26 Total Bilirubin 0.7 mg/dL (0.2-1.2) 06/14/20 12:26 AST 11 U/L (5-34) 06/14/20 12:26 ALT Less than 7 U/L (8-55) L 06/14/20 12:26 Alkaline Phosphatase 167 U/L (40-110) H 06/14/20 12:26 B-Natriuretic Peptide 867.5 pg/mL (0-100) H 06/14/20 12:26 Serum Total Protein 7.2 g/dL (6.0-8.3) 06/14/20 12:26 Albumin 3.4 g/dL (3.4-4.8) 06/14/20 12:26 - EKG Interpretation EKG: irregularly irregular rhythm, no p waves or st changes - Radiology Interpretation Chest x-ray Status: image reviewed by me (b/l pleural effusions, stable from previous exam, no interstitial opacities or signs of vascular congestion.) FMR H&P: A/P - Problem List (1) Acute on chronic diastolic CHF (congestive heart failure) Current Visit: No Status: Acute Code(s): I50.33 - ACUTE ON CHRONIC DIASTOLIC (CONGESTIVE) HEART FAILURE (2) Recurrent right pleural effusion Current Visit: No Status: Acute Code(s): J90 - PLEURAL EFFUSION, NOT ELSEWHERE CLASSIFIED (3) Atrial fibrillation with rapid ventricular response Current Visit: No Status: Chronic Code(s): I48.91 - UNSPECIFIED ATRIAL FIBRILLATION (4) COPD (chronic obstructive pulmonary disease) Current Visit: No Status: Chronic Qualifiers: Emphysema type: unspecified (5) HTN (hypertension) Current Visit: No Status: Chronic Code(s): I10 - ESSENTIAL (PRIMARY) HYPERTENSION Qualifiers: Hypertension type: essential hypertension Qualified Code(s): I10 - Essential (primary) hypertension - Plan Acute hypoxic respiratory failure - copd vs chf exac vs covid/com pna, consider PE as well - further laboratory eval pending - not clinically volume overloaded, monitor - treat for COPD, +abx, consider dc if procal neg PADILLA - consider hypovolemia as cause - gentle ivf rescus - monitor cmp COPD - treatment as above - resume home meds HFpEF - euvolemic at this point, monitor - bnp elevated - continue home meds afib, rvr resolved - continue home meds - monitor on tele pleural effusion - stable/improved from prior exams - unlikely source of presentation htn - stable, continue home meds pcp: Yuki code: DNAR- dw pt at bedside ppx: xarelto dispo: admit to tele inpatient for further eval/tx. FMR H&P: Upper Level - Plan Date/Time: 06/14/20 3023 I, [], have evaluated this patient and agree with findings/plan as outlined by training intern resident. Pertinent changes/additions are listed here. Addendum - Attending - Attending Attestation Date/Time: 06/14/20 8771 I personally evaluated the patient and discussed the management with Dr. Tejada. I agree with the History, Examination, Assessment and Plan documented above with any addition or exceptions noted below. Patient from care home and found to be hypoxic COVID PUI eval. Treat as COPD exacerbation in the interim. F/u results tomorrow. BNP slightly elevated but appears to be near baseline. Gentle IV fluids for PADILLA and mild volume depletion. lasix for s/s fluid overload.
[2020-06-14 16:01] LABS: Troponin I Less than 0.010 ng/mL (< 0.028)
[2020-06-14 19:00] LABS: Troponin I Less than 0.010 ng/mL (< 0.028)
[2020-06-14] MEDS ORDERED: Lactated Ringer's 1,000 ML IV SCH ×2 (19:45)
--- NOTE | 2020-06-14 20:54 | CT ---
CTA CHEST WITH CONTRAST: 06/14/20 Axial tomograms obtained with multiplanar reconstruction and 3D postprocessing following angio protoc ol. INDICATIONS: Dyspnea. Assess for pulmonary embolus. Comparison made to CTA chest performed 12/30/19. FINDINGS: Pulmonary arteries show adequate opacification. No evidence of pulmonary embolus identified. The lung butt show bilateral pleural effusions, slightly larger on the right. The left effusion has increased since the prior exam. The right effusion has increased slightly since the prior exam. There is mild vascular congestion. Interstitial prominence is seen suggesting mild interstitial edema . An area of nodularity in the anterior right middle lobe is a stable finding. The thoracic aorta shows atherosclerotic calcification. It is not adequately opacified and I cannot a ssess for thoracic dissection. Images through the upper abdomen unremarkable with renal cystic lesions again noted. Evidence of mese nteric edema in the upper abdomen. IMPRESSION: 1. No evidence of pulmonary embolus. 2. Cardiomegaly with vascular congestion and probable mild interstitial edema. 3. Bilateral effusions which have increased in size since prior exam. There is associated compre ssive atelectasis in both lung bases. 4. Nodular opacity in the anterior right middle lobe is again seen and appears stable. POS: AGW
[2020-06-14] MEDS ORDERED: Furosemide 40 MG/4 ML VIAL SLOW IVP SCH (21:00)
[2020-06-14] MEDS ORDERED: Ondansetron PF 4 MG/2 ML Vial IVP PRN ×2 (21:29→21:31)
[2020-06-14] MEDS ORDERED: Ondansetron ODT 4 MG TAB SL PRN (21:29)
[2020-06-14] MEDS ORDERED: Ondansetron ODT 4 MG TAB PO PRN (21:31)
[2020-06-14] MEDS ORDERED: Acetaminophen 650 MG Suppository PR PRN (21:31)
[2020-06-14] MEDS ORDERED: Albuterol Sulfate 2.5 mg/3 ml Neb NEB PRN (21:31)
[2020-06-14] MEDS ORDERED: Apixaban 2.5 MG TAB PO SCH (21:45)
[2020-06-14] MEDS ORDERED: traMADol HCl 50 MG TAB PO SCH (21:45)
[2020-06-14] MEDS: Melatonin 3 MG TAB PO PRN (22:02)
[2020-06-14 22:05] LABS: Actual Bicarbonate (HCO3a) 24.5 mEq/L (22-28); Base Excess (BEa) 0.4 mEq/L (-2.0 to +3.0); Calcium, Ionized (arterial) 1.14 mmol/L (1.12-1.30); Carboxyhemoglobin (COHb) 1.1 gm% (0.0-3.0); Hemoglobin (Hb) 11.8 g/dL (12.0-16.0); Potassium - ABG Lab 3.91 mmol/L (3.70-5.30); pH, Arterial 7.43 (7.35-7.45)
[2020-06-14 22:07] LABS: Puncture Site LRA
[2020-06-14] MEDS: Azithromycin 500 MG in Sodium Chloride 0.9% 250 ML 250 ML IVPB SCH (22:28)
[2020-06-15 04:30] LABS: #Lymphocytes 0.5 thou/uL (1.20-3.40); #Monocytes 0.1 thou/uL (0.11-0.59); #Neutrophils 5.1 thou/uL (1.40-6.50); %Basophils 0.2 % (0.0-1.0); %Eosinophils 0.1 % (0.0-10.0); %Lymphocytes 9.5 % (21.0-51.0); %Monocytes 1.1 % (0.0-10.0); %Neutrophils 89.1 % (42.0-75.0); Hemoglobin 9.8 g/dL (12.0-16.0); Mean Corpuscular HGB CONC 30.4 g/dL (32.0-36.0); Mean Corpuscular Hemoglobin 29.7 pg (27.0-31.0); Mean Corpuscular Volume 97.6 fL (78.0-98.0); Mean Platelet Volume 6.7 fL (7.4-10.4); Platelet Count 543 thou/uL (130-400); RBC Distribution Width 15.6 % (11.5-14.5); White Blood Cell (WBC) Count 5.7 thou/uL (4.8-10.8)
[2020-06-15 04:50] LABS: ALT (SGPT) Less than 7 U/L (8-55); AST (SGOT) 9 U/L (5-34); Albumin 3.1 g/dL (3.4-4.8); Alkaline Phosphatase 162 U/L (40-110); Anion Gap 14 mmol/L (10-20); BUN (Urea Nitrogen) 34 mg/dL (9.8-20.1); Bilirubin, Total 0.5 mg/dL (0.2-1.2); Calc. Creatinine Clearance 22 mL/min (70-130); Calcium 8.5 mg/dL (7.8-10.44); Carbon Dioxide 24 mmol/L (23-31); Chloride 98 mmol/L (98-107); Estimated GFR-MDRD 40; Globulin 3.5 g/dL (2.4-3.5); Glucose 173 mg/dL (83-110); Potassium 3.9 mmol/L (3.5-5.1); Protein, Total 6.6 g/dL (6.0-8.3); Sodium 132 mmol/L (136-145)
--- NOTE | 2020-06-15 05:58 | PDOC.FM ---
- Objective Vital Signs & Weight: Vital Signs (12 hours) Temp Pulse Resp BP Pulse Ox 06/15/20 03:31 97.9 F 74 20 107/62 93 L 06/15/20 02:35 79 16 90 L 06/14/20 21:15 93 L 06/14/20 21:11 98 F 105 H 22 H 107/66 93 L Weight Weight 40.85 kg I&O: Reports she is still asymptomatic, not happy to be in hospital. She denies any headache, chest pain, SOB, abdominal pain. She does have edema of RLE, states this has been ongoing for over one month since a fall, and that she has been treated for this in her facility. Result Diagrams: 06/15/20 04:10 06/15/20 04:10 EKG Reviewed by me: Yes (Tele reviewed: afib, without rvr) Phys Exam - Physical Examination Constitutional: NAD HEENT: PERRLA, moist MMs Neck: full ROM Respiratory: no wheezing, no rales, no rhonchi distant breath sounds irregularly irregular rhythm, regular rate Gastrointestinal: soft, non-tender, no distention, positive bowel sounds Musculoskeletal: pulses present 3+ pitting edema RLE, weeping wound on RLE Psychiatric: A&O x 3 Deviation from normal: diffuse senile purpura, bruising around IV sites Dx/Plan (1) Acute hypoxemic respiratory failure Code(s): J96.01 - ACUTE RESPIRATORY FAILURE WITH HYPOXIA Status: Acute (2) Atrial fibrillation Code(s): I48.91 - UNSPECIFIED ATRIAL FIBRILLATION Status: Chronic (3) CHF (congestive heart failure) Code(s): I50.9 - HEART FAILURE, UNSPECIFIED Status: Acute (4) COPD (chronic obstructive pulmonary disease) Status: Acute Qualifiers: Emphysema type: unspecified - Plan Plan: Acute hypoxic respiratory failure - copd vs chf exac vs covid/com pna, consider PE as well - CTA without signs of PE, significant for pleural effusions with compressive atelectasis - not clinically volume overloaded, monitor - COVID negative 06/14 - treat for COPD with abx - saturating low 90s on RA today, will discuss dispo with PCP today PADILLA - consider hypovolemia as cause - gentle ivf rescus - monitor cmp COPD - treatment as above - resume home meds HFpEF - euvolemic at this point, monitor - bnp elevated - continue home meds afib, rvr resolved - continue home meds - monitor on tele pleural effusion - stable/improved from prior exams - unlikely source of presentation htn - stable, continue home meds pcp: Yuki code: DNAR- dw pt at bedside ppx: [place] dispo: admit to tele inpatient for further eval/tx. Addendum - Attending - Attending Attestation Date/Time: 06/15/20 8185 I personally evaluated the patient and discussed the management with Dr. Hsieh. I agree with the History, Examination, Assessment and Plan documented above with any addition or exceptions noted below. She is in the low 90s on RA and refusing NC O2. Pulse out of RVR. Given home dilt and will likely d/c back to NH.
[2020-06-15] MEDS ORDERED: Prevnar 13-Val Conj/PF 0.5 ML SYRINGE IM ONE (09:00)
[2020-06-15] MEDS: Apixaban 2.5 MG TAB PO SCH ×2 (09:00→22:08)
[2020-06-15] MEDS: predniSONE 20 MG TAB PO SCH (09:01)
[2020-06-15] MEDS: traMADol HCl 50 MG TAB PO SCH ×2 (09:01→22:09)
[2020-06-15 10:58] VITALS: BMI 18.6
[2020-06-15] MEDS ORDERED: Metoprolol Tartrate 5 MG/5 ML VIAL IVP SCH (17:00)
[2020-06-15] MEDS ORDERED: hydrOXYzine 25 MG TAB PO PRN (17:54)
[2020-06-15] MEDS ORDERED: Amiodarone 200 MG TAB PO SCH (18:15)
[2020-06-15] MEDS: Azithromycin 500 MG in Sodium Chloride 0.9% 250 ML 250 ML IVPB SCH (22:08)
[2020-06-15] MEDS: Melatonin 3 MG TAB PO PRN (22:14)
[2020-06-15] MEDS: Acetaminophen 325 MG TAB PO PRN (22:14)
[2020-06-16] MEDS: Acetaminophen 325 MG TAB PO PRN (02:26)
--- NOTE | 2020-06-16 06:07 | PDOC.FM ---
- Subjective Subjective: Pt was ready for discharge yesterday, when HR michael to 130 and SBP was 100s. She was kept overnight to ensure she was stable. Yesterday, she missed her AM dose of amiodarone. It was given last night, and resumed this AM. For the rest of the night, her HR was in the 90s-100s. Today, it is 100s-110s. She remains asymptomatic. She has no new complaints today. Denies any chest pain, SOB, headache, abdominal pain, palpitations. Reports that she does struggle with anxiety sometimes. - Objective Vital Signs & Weight: Vital Signs (12 hours) Temp Pulse Resp BP Pulse Ox 06/16/20 03:45 97.9 F 104 H 18 107/66 87 L 06/16/20 02:15 99 20 89 L 06/15/20 23:52 87 L 06/15/20 22:33 20 89 L 06/15/20 19:28 97.6 F 108 H 22 H 111/70 90 L 06/15/20 18:21 107 H 20 86 L Weight Admit Weight 40.823 kg Weight 46.085 kg I&O: 06/14/20 06/15/20 06/16/20 06:59 06:59 06:59 Intake Total 418 360 Balance 418 360 Result Diagrams: 06/15/20 04:10 06/16/20 10:18 EKG Reviewed by me: Yes (Tele: afib, 90s-100s rate) Phys Exam - Physical Examination Constitutional: NAD frail appearing HEENT: PERRLA, moist MMs temporal wasting Neck: supple Respiratory: no wheezing, no rales, no rhonchi irregularly irregular rhythm, mildly tachycardic Gastrointestinal: soft, non-tender, positive bowel sounds Musculoskeletal: pulses present RLE edema, weeping Neurological: moves all 4 limbs Psychiatric: normal affect, A&O x 3 Skin: no rash Deviation from normal: diffuse senile purpura, Dx/Plan (1) Acute hypoxemic respiratory failure Code(s): J96.01 - ACUTE RESPIRATORY FAILURE WITH HYPOXIA Status: Acute (2) Atrial fibrillation Code(s): I48.91 - UNSPECIFIED ATRIAL FIBRILLATION Status: Chronic (3) CHF (congestive heart failure) Code(s): I50.9 - HEART FAILURE, UNSPECIFIED Status: Acute (4) COPD (chronic obstructive pulmonary disease) Status: Acute Qualifiers: Emphysema type: unspecified - Plan Plan: Acute hypoxic respiratory failure - copd vs chf exac vs covid/com pna, consider PE as well - CTA without signs of PE, significant for pleural effusions with compressive atelectasis - not clinically volume overloaded, monitor - COVID negative 06/14 - treat for COPD with abx - desaturations to upper 80s on RA overnight, encourage patient to wear NC and wean as tolerated Afib - rates approaching RVR range just before planned discharge yesterday, held overnight - lower overnight with amiodarone, but not well controlled - will load with 0.5mcg digoxin today, and start 0.25mcg daily tomorrow - will monitor overnight tonight PADILLA - consider hypovolemia as cause - gentle ivf rescus - monitor cmp Malnutrition -severe temporal wasting on exam -evaluated by dietitian this admission -added mighty shakes TID to meals COPD - treatment as above - resume home meds HFpEF - euvolemic at this point, monitor - bnp elevated - continue home meds pleural effusion - stable/improved from prior exams - unlikely source of presentation htn - stable, continue home meds pcp: Yuki Tellez code: DNAR- dw pt at bedside ppx: elimagaly dispo: likely discharge soon; bed no longer available at her SNF but may qualify for home health; case management, PT, OT consulted. Addendum - Attending - Attending Attestation Date/Time: 06/16/20 9824 I personally evaluated the patient and discussed the management with Dr. Hsieh. I agree with the History, Examination, Assessment and Plan documented above with any addition or exceptions noted below. Dig for rate control today. Monitor overnight. poss d/c w/ HH tomorrow.
[2020-06-16] MEDS: Apixaban 2.5 MG TAB PO SCH ×2 (08:06→21:14)
[2020-06-16] MEDS: Amiodarone 200 MG TAB PO SCH (08:07)
[2020-06-16] MEDS: predniSONE 20 MG TAB PO SCH (08:07)
[2020-06-16] MEDS: traMADol HCl 50 MG TAB PO SCH ×2 (08:07→21:14)
[2020-06-16 11:06] LABS: Anion Gap 16 mmol/L (10-20); BUN (Urea Nitrogen) 43 mg/dL (9.8-20.1); Calc. Creatinine Clearance 21 mL/min (70-130); Calcium 8.8 mg/dL (7.8-10.44); Carbon Dioxide 26 mmol/L (23-31); Chloride 95 mmol/L (98-107); Estimated GFR-MDRD 33; Glucose 143 mg/dL (83-110); Potassium 4.1 mmol/L (3.5-5.1); Sodium 133 mmol/L (136-145)
[2020-06-16] MEDS ORDERED: Digoxin 0.25 MG TAB PO SCH (11:30)
[2020-06-16] MEDS: Azithromycin 500 MG in Sodium Chloride 0.9% 250 ML 250 ML IVPB SCH (21:16)
--- NOTE | 2020-06-17 05:36 | PDOC.FM ---
- Subjective Subjective: No acute overnight events. States her sister in March 2020, she was not able to have visitors due to COVID and she has been greatly affected by this. Was previously prescribed something for depression and feels it was helping her, but she does not know the name of it or if she is still taking it. She suspects not because her moods have been worse. Denies chest pain, SOB, abdominal pain, constipation, n/v/d, increased edema. - Objective Vital Signs & Weight: Vital Signs (12 hours) Temp Pulse Resp BP Pulse Ox 06/17/20 03:27 97.5 F L 97 16 108/72 92 L 06/16/20 22:54 98 18 92 L 06/16/20 19:18 109 H 22 H 94 L 06/16/20 19:15 98.0 F 96 18 125/83 92 L Weight Admit Weight 40.823 kg Weight 46.947 kg I&O: 06/15/20 06/16/20 06/17/20 06:59 06:59 06:59 Intake Total 260 951 7603 Balance 129 645 9658 Result Diagrams: 06/15/20 04:10 06/16/20 10:18 EKG Reviewed by me: Yes (Tele: afib, rate 90s-110s) Phys Exam - Physical Examination Constitutional: NAD frail appearing HEENT: PERRLA, moist MMs temporal wasting Neck: supple, full ROM Respiratory: no wheezing, no rales, no rhonchi distant breath sounds irregularly irregular rhythm, normal rate Gastrointestinal: soft, non-tender, no distention, positive bowel sounds Musculoskeletal: pulses present RLE edema, unchanged Neurological: moves all 4 limbs Psychiatric: normal affect, A&O x 3 Skin: no rash Deviation from normal: diffuse senile purpura, skin tear LUE Dx/Plan (1) Acute hypoxemic respiratory failure Code(s): J96.01 - ACUTE RESPIRATORY FAILURE WITH HYPOXIA Status: Acute (2) Atrial fibrillation Code(s): I48.91 - UNSPECIFIED ATRIAL FIBRILLATION Status: Chronic (3) CHF (congestive heart failure) Code(s): I50.9 - HEART FAILURE, UNSPECIFIED Status: Acute (4) COPD (chronic obstructive pulmonary disease) Status: Acute Qualifiers: Emphysema type: unspecified - Plan Plan: Acute hypoxic respiratory failure, resolved - copd vs chf exac vs covid/com pna, consider PE as well - CTA without signs of PE, significant for pleural effusions with compressive atelectasis - not clinically volume overloaded, monitor - COVID negative 06/14 - treat for COPD with abx Afib, RVR resolved - resumed home amiodarone, diltiazem - started digoxin with loading dose on 06/16, maintenance dose beginning 06/17 - HR and BP have been stable on digoxin overnight Depression: - moods not doing well recently, exacerbated by loss of sister in March 2020 - previously on medication she felt helped - will review records to see what she was taking and consider resuming treatment PADILLA, resolving - consider hypovolemia as cause - gentle ivf rescus - monitor cmp Malnutrition -severe temporal wasting on exam -evaluated by dietitian this admission -added mighty shakes TID to meals COPD - treatment as above - resume home meds HFpEF - euvolemic at this point, monitor - bnp elevated - continue home meds pleural effusion - stable/improved from prior exams - unlikely source of presentation htn - stable, continue home meds pcp: Yuki Tellez code: ELKER- rajat pt at bedside ppx: peggy dispo: likely discharge soon; bed no longer available at her SNF but may qualify for home health; case management, PT, OT consulted.
[2020-06-17] MEDS: predniSONE 20 MG TAB PO SCH (08:32)
[2020-06-17] MEDS: Digoxin 0.25 MG TAB PO SCH (08:33)
[2020-06-17] MEDS: Apixaban 2.5 MG TAB PO SCH ×2 (08:33→20:06)
[2020-06-17] MEDS: Amiodarone 200 MG TAB PO SCH (08:33)
[2020-06-17] MEDS: Mirtazapine 15 MG TAB PO SCH (08:33)
[2020-06-17] MEDS: traMADol HCl 50 MG TAB PO SCH ×2 (08:33→20:06)
--- NOTE | 2020-06-17 18:35 | CON ---
DATE OF CONSULTATION: Please see note from for which I agree. The patient was seen, evaluated, discussed, and examined with the residents at bedside. Really, she is breathing better, feels fine. Digoxin was added to help slow her pulse down a little bit, but still stable. No major issues at this point in time, as she has rate controlled atrial fibrillation and her breathing is doing well. Probably cleared to go as soon as we can find a bed for her again. Job ID: [id number]
[2020-06-17] MEDS: Azithromycin 500 MG in Sodium Chloride 0.9% 250 ML 250 ML IVPB SCH (20:04)
[2020-06-18 05:30] LABS: Anion Gap 13 mmol/L (10-20); BUN (Urea Nitrogen) 27 mg/dL (9.8-20.1); Calc. Creatinine Clearance 44 mL/min (70-130); Calcium 8.8 mg/dL (7.8-10.44); Carbon Dioxide 28 mmol/L (23-31); Chloride 99 mmol/L (98-107); Estimated GFR-MDRD 76; Glucose 89 mg/dL (83-110); Potassium 4.6 mmol/L (3.5-5.1); Sodium 135 mmol/L (136-145)
--- NOTE | 2020-06-18 06:04 | PDOC.FM ---
- Subjective Subjective: No acute events overnight. She reports some pedal edema this AM, no SOB. States her biggest problem is her moods, feels she is struggling with depression and anxiety. No chest pain, abdominal pain, SOB. - Objective Vital Signs & Weight: Vital Signs (12 hours) Temp Pulse Resp BP Pulse Ox 06/18/20 03:17 97.7 F 90 23 H 129/84 95 06/17/20 22:04 104 H 14 06/17/20 19:05 98.4 F 104 H 18 135/82 92 L 06/17/20 18:30 99 16 94 L Weight Admit Weight 40.823 kg Weight 46.402 kg I&O: 06/16/20 06/17/20 06/18/20 06:59 06:59 06:59 Intake Total 360 1450 1320 Output Total 990 Balance 360 1450 330 Result Diagrams: 06/15/20 04:10 06/18/20 04:18 EKG Reviewed by me: Yes (Tele: afib, rate 80s-100s overnight) Phys Exam - Physical Examination Constitutional: NAD HEENT: PERRLA, moist MMs Neck: supple Respiratory: no wheezing, no rales, no rhonchi distant breath sounds Cardiovascular: no significant murmur irregularly irregular rhythm, normal rate Gastrointestinal: soft, non-tender, positive bowel sounds Musculoskeletal: pulses present chronic RLE edema, 1+ LLE edema that is new Neurological: moves all 4 limbs Psychiatric: A&O x 3 Deviation from normal: very anxious Skin: no rash Deviation from normal: senile purpura, bruising near IV insertion site, LUE skin tear bandaged Dx/Plan (1) Acute hypoxemic respiratory failure Code(s): J96.01 - ACUTE RESPIRATORY FAILURE WITH HYPOXIA Status: Acute (2) Atrial fibrillation Code(s): I48.91 - UNSPECIFIED ATRIAL FIBRILLATION Status: Chronic (3) CHF (congestive heart failure) Code(s): I50.9 - HEART FAILURE, UNSPECIFIED Status: Acute (4) COPD (chronic obstructive pulmonary disease) Status: Acute Qualifiers: Emphysema type: unspecified - Plan Plan: Acute hypoxic respiratory failure - most likely COPD exacerbation vs CHF - CTA without signs of PE, significant for pleural effusions with compressive atelectasis - COVID negative 06/14 - to complete abx and steroids for COPD exacerbation today - documented need for 3L NC last night, although patient not wearing - will get CXR today to r/o new pathology, evaluate chronic pleural effusion Afib, RVR resolved - resumed home amiodarone, diltiazem - started digoxin with loading dose on 06/16, maintenance dose beginning 06/17 - HR and BP have been stable on digoxin overnight HFpEF - increased pedal edema, new today - no rales on exam - bnp elevated - diuretics initially held due to PADILLA, soft BPs, will resume today Depression: - moods not doing well recently, exacerbated by loss of sister in March 2020 - previously on medication she felt helped - per record review, appears she was taking mirtazipine, have resumed this. should help with appetite as well. PADILLA, resolving - consider hypovolemia as cause - s/p IVF resuscitation - continue to monitor Malnutrition -severe temporal wasting on exam -evaluated by dietitian this admission -added mighty shakes TID to meals -resumed home mirtazipine as well COPD - treatment as above - resume home meds pleural effusion - stable/improved from prior exams - unlikely source of presentation - f/u on repeat CXR today htn - stable, continue home meds pcp: Yuki Tellez code: DNAR- dw pt at bedside ppx: peggy dispo: likely discharge soon; bed no longer available at her SNF but may qualify for home health; case management, PT, OT consulted.
[2020-06-18] MEDS: Spironolactone 25 MG TAB PO SCH (09:12)
[2020-06-18] MEDS: traMADol HCl 50 MG TAB PO SCH ×2 (09:12→20:17)
[2020-06-18] MEDS: Amiodarone 200 MG TAB PO SCH (09:12)
[2020-06-18] MEDS: Digoxin 0.25 MG TAB PO SCH (09:12)
[2020-06-18] MEDS: Mirtazapine 15 MG TAB PO SCH (09:12)
[2020-06-18] MEDS: Torsemide 20 MG TAB PO SCH (09:13)
[2020-06-18] MEDS: predniSONE 20 MG TAB PO SCH (09:14)
[2020-06-18] MEDS: Apixaban 2.5 MG TAB PO SCH ×2 (09:14→20:17)
[2020-06-18] MEDS: Gabapentin 100 MG CAP PO SCH ×2 (09:14→20:17)
--- NOTE | 2020-06-18 12:42 | RAD ---
EXAM: Single view of the chest HISTORY: CHF COMPARISON: 06/14/2020 FINDINGS: Single view of the chest shows an enlarged but stable cardiomediastinal silhouette. Athero sclerotic calcifications are seen in the aorta. Increased interstitial markings are present. Subtle opacity in the right lung base may represent a pleural effusion and adjacent atelectasis versu s infiltrate. There are calcified right hilar and mediastinal lymph nodes. Degenerative changes are seen in the spine. IMPRESSION: Possible small right pleural effusion with adjacent atelectasis versus infiltrate
[2020-06-18] MEDS: Acetaminophen 325 MG TAB PO SCH ×2 (13:21→17:29)
--- NOTE | 2020-06-18 16:18 | PRG ---
DATE OF SERVICE: 06/18/2020 Please see note from for which I agree. The patient was seen, evaluated, discussed, and examined with the residents at bedside. No major changes. Oxygen level is doing pretty good on 2 to 3 L of nasal cannula. Atrial fibrillation with rapid ventricular response is now controlled rate carrillo on her home medicines. Hard to say if her hypoxia that brought her in is COPD versus CHF as it sounds like it is maybe a little bit of both. Continue home diuretics that she was getting a little bit more edematous. We will likely consider COPD inhaler for maintenance and not just a DuoNeb that she can take as needed. Job ID: [id number]
[2020-06-19] MEDS: Acetaminophen 325 MG TAB PO SCH ×4 (01:05→16:44)
--- NOTE | 2020-06-19 05:18 | PDOC.FM ---
- Subjective Subjective: No acute events overnight. Reports continues depression and desire to leave. No SOB, chest pain. - Objective MAR Reviewed: Yes Vital Signs & Weight: Vital Signs (12 hours) Temp Pulse Resp BP Pulse Ox 06/19/20 04:45 98.1 F 81 18 124/71 92 L 06/18/20 19:40 98.1 F 93 18 131/82 92 L 06/18/20 17:27 97.8 F 94 16 126/75 95 Weight Admit Weight 40.823 kg Weight 45.269 kg I&O: 06/17/20 06/18/20 06/19/20 06:59 06:59 06:59 Intake Total 1450 1970 810 Output Total 990 800 Balance 1450 980 10 Result Diagrams: 06/15/20 04:10 06/18/20 04:18 EKG Reviewed by me: Yes (afib, rate controlled) Phys Exam - Physical Examination Constitutional: NAD HEENT: PERRLA, moist MMs Neck: supple Respiratory: no wheezing, no rales, no rhonchi Decreased and distant breath sounds Cardiovascular: no significant murmur, irregular Gastrointestinal: soft, non-tender, positive bowel sounds Musculoskeletal: no edema Neurological: non-focal Deviation from normal: Depressed, agitated Skin: no rash Dx/Plan - Plan Plan: Acute hypoxic respiratory failure - likely COPD exacerbation vs CHF - CTA: no signs PE, significant for pleural effusions with compressive atelectasis - COVID negative 06/14 - s/p abx and steroids - per nurse, did not wear nasal. Satting in 90s - chest xray yesterday showed possible small right pleural effusion; improved from admission xray Afib, RVR resolved - resumed home amiodarone, diltiazem - started digoxin HFpEF - edema not noted on exam today - no rales on exam - bnp elevated - diuretics resumed Depression - pt reports depressed mood - mirtazipine, have resumed this. should help with appetite as well. PADILLA, resolving - likely caused by hypovolemia - s/p IVF resuscitation - continue to monitor Malnutrition -severe temporal wasting on exam -evaluated by dietitian this admission -added mighty shakes TID to meals -mirtazipine as mentioned above COPD - treatment as above - resume home meds - consider starting spiriva pleural effusion - stable/improved from prior exams; right pleural effusion still seen on xray, but improved - unlikely source of presentation htn - stable, continue home meds pcp: Yuki Tellez code: DNAR- dw pt at bedside ppx: peggy dispo: pending placement; bed no longer available at her SNF but may qualify for home health; case management, PT, OT consulted. Addendum - Attending - Attending Attestation Date/Time: 06/19/20 1220 I personally evaluated the patient and discussed the management with Dr. Bundy. I agree with the History, Examination, Assessment and Plan documented above with any addition or exceptions noted below. Patient currently stable. Does not complain or respiratory issues and off O2 supplementation. Awaiting SNF decision.
[2020-06-19] MEDS: Torsemide 20 MG TAB PO SCH (10:08)
[2020-06-19] MEDS: Gabapentin 100 MG CAP PO SCH (10:08)
[2020-06-19] MEDS: Apixaban 2.5 MG TAB PO SCH (10:08)
[2020-06-19] MEDS: Spironolactone 25 MG TAB PO SCH (10:08)
[2020-06-19] MEDS: Amiodarone 200 MG TAB PO SCH (10:08)
[2020-06-19] MEDS: Digoxin 0.25 MG TAB PO SCH (10:09)
[2020-06-19] MEDS: Mirtazapine 15 MG TAB PO SCH (10:09)
[2020-06-19] MEDS: traMADol HCl 50 MG TAB PO SCH (10:10)
[2020-06-19 16:40] VITALS: BP 127/68; TEMP 97.5
[2020-06-19] MEDS ORDERED: Clindamycin 150 MG CAP PO SCH (18:00)
--- NOTE | 2020-06-19 18:17 | PDOC.BPN ---
- Brief Progress Note Call from Nurse Tinsley about redness along patient's right thigh. Patient was previously on clindamycin before this hospital visit for cellulitis after hip surgery. Examined area, erythema from right hip anteriorly to right thigh, with mild warmth, no abscesses. Patient has been afebrile. Will treat for cellulitis , right upper thigh. Sent prescription for clindamycin 450mg q6hr x 7 days, and her rehab center can adjust as necessary.
--- NOTE | 2020-06-20 11:30 | PQF ---
CLINICAL DOCUMENTATION CLARIFICATION FORM: Dear : Sheila Aly DateTime: Please exercise your independent, professional judgment in responding to the clarification form. Clinical indicators are provided on the bottom of this form for your review Please check appropriate box(es): [ ] Mild protein calorie malnutrition [ ] Moderate protein calorie malnutrition [ ] Severe protein calorie malnutrition [ X ] Unspecified protein calorie malnutrition [ ] Other diagnosis [ ] Unable to determine Physician Signature: Date/Time: For continuity of documentation, please document condition throughout progress notes and discharge summary. Thank You. To be completed by CDI/Coding staff for physician review: w Present w Clinical Indicators - Signs / Symptoms / Labs w Results and Location in Medical Record w [x ] w Malnutrition-severe temporal wasting on exam w Family medicine PN, 06/19 , Jermain Sosa MD w [x ] w BMI: 18.3 w Vital signs, 06/14 w [x ] w Albumin:3.1L w Laboratory report, 06/15 w w w w Present w Risk Factors w Results and Location in Medical Record w [x ] w PADILLA w Family medicine PN, 06/19, Jermain Sosa MD w w w w w w w w w w Present w Treatments w Results and Location in Medical Record w [x ] w Evaluated by dietitian this admission w Family medicine PN, 06/18, Laron Gonzalez MD w [ x ] w Sodium chloride.IV w MAR, 06/14 w w w w w w CDS/Data Review Specialist Signature: Stephania Ann Phone #: [phone] Date/Time:_06/20/2020 This is a permanent part of the Medical Record [facility]
--- NOTE | 2020-06-20 17:12 | DIS ---
DATE OF ADMISSION: 06/14/2020 DATE OF DISCHARGE: 06/19/2020 RESIDENT: Razia Bundy MD ADMITTING ATTENDING: Tr Rosado MD DISCHARGE ATTENDING: Jermain Correa MD CONSULTS: Case Management. CARDIAC REHAB: Outpatient. CV team routine. PROCEDURES: 1. Chest x-ray (06/14): Evidence of old granulomatous disease; bilateral pleural effusion, right larger than left; no pneumothoraces seen; no evidence of kassi pulmonary edema. 2. Chest thorax CTA: No evidence of pulmonary embolism; cardiomegaly with vascular congestion and probable mild interstitial edema; bilateral effusions which have increased in size since prior event; no nodular opacity in the anterior right lower lobe, appears stable. 3. Chest x-ray (06/18): Possible small right pleural effusion. PRIMARY DIAGNOSIS: Acute hypoxic respiratory failure secondary to COPD exacerbation SECONDARY DIAGNOSES: 1. Acute kidney injury 2. Chronic obstructive pulmonary disease 3. Heart failure with preserved ejection fraction 4. Atrial fibrillation 5. Pleural effusion, hypertension. DISCHARGE MEDICATIONS: 1. Apixaban 2.5 mg p.o. b.i.d. 2. Melatonin 3 mg p.o. 3. Spironolactone 25 mg p.o. q.a.m.- WM. 4. Torsemide 40 mg p.o. daily. 5. Diltiazem 150 mg p.o. daily. 6. Mirtazapine 15 mg p.o. daily. 7. Acetaminophen 650 mg p.o. q.6 hours. 8. Gabapentin 100 mg p.o. b.i.d. 9. Tramadol 50 mg p.o. q.6 hours p.r.n. 10. Amiodarone 200 mg p.o. daily. 11. Spiriva 18 mcg inhaled 2 puffs daily. 12. Albuterol sulfate 2.5 mg neb q.2 hours p.r.n. 13. Digoxin 0.25 mg p.o. daily. 14. DuoNebs 3 mL neb q.4 p.r.n. 15. Clindamycin 450 mg p.o. q.6 hours for 7 days. DISCONTINUED MEDICATIONS: None. HISTORY OF PRESENT ILLNESS AND HOSPITAL COURSE: Ms. Lackey is an 84-year-old female with past medical history significant for COPD, atrial fibrillation, and heart failure with preserved ejection fraction. While at the [facility], she was found to be hypoxic in her 70s and tachypneic. She was brought to the ED. At that time, she had no complaints and denied shortness of breath, dyspnea on exertion, orthopnea, chest pain, cough, wheeze, fever, or dysuria. Hypoxia was thought to be secondary to COPD vs. CHF. COVID was ruled out with a negative test and a PE was also ruled out. We began treatment with antibiotics and steroids. She was set to be discharged the next day on 06/15. However, prior to discharge, she had atrial fibrillation with RVR. She was kept overnight to ensure stability and was started on digoxin. Throughout her course, she struggled with p.o. intake, depression, and anxiety. She was given a regular diet with MightyShakes and was restarted on her previous medication of mirtazapine. Prior to discharge today, the nurse noted a redness along the patient's right thigh. The area was erythematous with mild warmth. No abscess was noted and the patient has been afebrile. She will be discharged with clindamycin to be completed in 7 days and to be adjusted at [facility]. DISPOSITION: Stable. DISCHARGE INSTRUCTIONS: 1. Location: [facility]. 2. Diet: Regular with MightyShakes 3 times a day. 3. Activity: As tolerated. 4. Followup: Follow up with Dr. Fung. Job ID: [id number] MTDD
== END 2020-06-19 18:45 | DRG 189 ==
LOC: ERS 12:07 → ERHOLD 14:12 → 2NO 21:09
PROVIDERS: ADMIT Family Medicine; ATTEND Family Medicine
DX: J96.01 Acute respiratory failure with hypoxia (principal); J44.1 Chronic obstructive pulmonary disease with (acute) exacerbation; N17.9 Acute kidney failure, unspecified; E46 Unspecified protein-calorie malnutrition; Z68.1 Body mass index [BMI] 19.9 or less, adult; I50.32 Chronic diastolic (congestive) heart failure; Z20.828 Contact with and (suspected) exposure to other viral communicable diseases; I11.0 Hypertensive heart disease with heart failure; I48.91 Unspecified atrial fibrillation; F17.210 Nicotine dependence, cigarettes, uncomplicated; E86.1 Hypovolemia; E86.9 Volume depletion, unspecified; M19.90 Unspecified osteoarthritis, unspecified site; F32.9 Major depressive disorder, single episode, unspecified; Z90.710 Acquired absence of both cervix and uterus; Z79.01 Long term (current) use of anticoagulants
CPT/HCPCS: 36415; 71045; 71275; 80048; 80053; 82728; 82805; 83605; 83880; 84145; 84484; 85025; 85379; 86140; 87040; 93005; 94640; 96365; 96375; J0456; J1940; J2930; J3475; J7050; J7512; J7620; Q9967; U0002